=== PATIENT | female | born 1965 | race Caucasian/White ===

== ENCOUNTER 2019-08-09 16:35 | Observation (INO) ==
[2019-08-09] MEDS ORDERED: MoRPHine SULFATE 4 MG/ML 1 ML CARP\\VIAL IV STA ×2 (17:03→20:28)
[2019-08-09] MEDS ORDERED: GI COCKTAIL ED USE PO ONE (17:03)
[2019-08-09] MEDS ORDERED: ONDANSETRON INJ 2 MG/ML 2 ML VIAL IV STA (17:03)
[2019-08-09] MEDS ORDERED: SODIUM CHLORIDE 0.9% 1000ML 1,000 ML IV ONE (17:03)
--- NOTE | 2019-08-09 17:09 | Emergency Department Note ---
History of Present Illness General Chief Complaint: Abdominal Pain Stated Complaint: SEVERE ABDOMINAL PAIN,NAUSEA,CAN'T EAT Source: patient Mode of arrival: ambulatory Limitations: no limitations History of Present Illness Provider Complaint: abdominal pain Onset (ago): 1 day(s) Pain Consistency: constant Location: epigastric Radiation: LLQ and RLQ Migration to: no migration Severity: severe Maximum Pain Intensity: 9 Current Pain Intensity: 9 Quality: + aching, + sharp and + burning Relieved By: + nothing Exacerbated By: + eating and + vomiting Associated Symptoms: + nausea, + vomiting, + chills and + anorexia; no diarrhea, no fever, no constipation, no dysuria, no hematemesis, no hematochezia, no hematuria, no syncope, no headache, no back pain and no chest pain Treatments prior to arrival: tylenol This 54-year-old female patient presents emergency department today, ambulatory, accompanied by her . The patient is complaining of severe abdominal pain, nausea, and anorexia. The patient states the nausea and vomiting began yesterday morning while at work. She states she went home and went to her parents for dinner where she ate mashed potatoes and ham. Shortly thereafter, s he developed sudden onset of severe epigastric pain. The patient states she was having difficulty sleeping last night. The pain has progressively worsened and she continues to experience nausea and vomiting and inability to tolerate p.o. fluids or foods. Patient states walking makes the pain worse. She has taken Tylenol without relief. She denies any history of similar symptoms. Last bowel movement was this morning. She states this was normal. She denies any recent constipation or diarrhea. She denies any chest pain or dyspnea. Home Medications Home Medications Medication Instructions Recorded Confirmed Type acetaminophen [Tylenol Extra 1,000 mg PO Q6H PRN 08/09/19 08/09/19 History Strength] lisinopril 10 mg PO DAILY 08/09/19 08/09/19 History Allergies Allergy/AdvReac Type Severity Reaction Status Date / Time No Known Allergies Allergy Unverified 08/09/19 18:48 Past Med/Surg History Medical History Hypertension Surgical History H/O tubal ligation Social History Preferred Language: Setswana Feels Safe at Home: Yes Smoking Status: Current every day smoker Review of Systems A total of 10 systems reviewed and were otherwise negative Physical Exam Vital Signs: Vital Signs - 24 hr 08/09/19 16:39 08/09/19 17:35 08/09/19 18:10 Temperature 36.5 C Temperature Source Oral Pulse Rate 108 H Pulse Rate [Finger ] 63 Respiratory Rate 18 20 Respiratory Effort / Characteristics Non-Labored Respiratory Depth Normal Blood Pressure 180/94 H Blood Pressure [Le ft Arm] 168/95 H Blood Pressure Rachna n 122 Blood Pressure Rachna n [Left Arm] 119 Pulse Oximetry 99 99 99 Oxygen Delivery Me thod Room Air Room Air Room Air Sepsis Recent Feve r Within 48 Hours No Sepsis New/Unexpla ined Change in Men ger Status No Sepsis Action Take n by Nursing No Action Required 08/09/19 20:30 Temperature Temperature Source Pulse Rate Pulse Rate [Finger ] 89 Respiratory Rate 20 Respiratory Effort / Characteristics Non-Labored Respiratory Depth Normal Blood Pressure Blood Pressure [Le ft Arm] 178/98 H Blood Pressure Rachna n Blood Pressure Rachna n [Left Arm] 124 Pulse Oximetry 95 Oxygen Delivery Me thod Room Air Sepsis Recent Feve r Within 48 Hours Sepsis New/Unexpla ined Change in Men ger Status Sepsis Action Take n by Nursing Physical Exam: VITALS: Vitals are noted on the nurse's note and reviewed by myself. Vital signs stable. GENERAL: This is a 54-year-old white female, in no acute distress, nondiaphoretic, well-developed well-nourished. SKIN: The skin was without rashes, erythema, edema, or bruising. There is no tenting of the skin. Capillary refill less than 2 seconds. HEAD: Normocephalic atraumatic. EARS: External auditory canals clear, tympanic membranes pearly cabrera without erythema or effusion bilaterally. EYES: Conjunctivae without injection, sclerae without icterus. NOSE: Patent, turbinates without inflammation or discharge. No sinus tenderness. MOUTH: Mucous membranes moist. Tonsils are not enlarged. Pharynx without erythema or exudate. Uvula midline. Airway patent. Tongue does not deviate. NECK: Supple without nuchal rigidity. No lymphadenopathy. HEART: Regular rate and rhythm without murmurs gallops or rubs. LUNGS: Clear to auscultation bilaterally without wheezes, rales or rhonchi. No retractions or accessory muscle use. ABDOMEN: Positive bowel sounds x 4. Normal tympanic percussion. Diffuse tenderness palpation, most severe in the left lower quadrant. Mildly dis tended, otherwise without masses or organomegaly. Dalton sign negative. Positive guarding diffusely. MUSCULOSKELETAL: No muscle atrophy, erythema, or edema noted. Full range of motion without joint tenderness in all extremities. No tenderness to palpation. Normal gait. NEURO: Patient was alert and oriented to person place and time. No focal neurological deficits. Course Course The patient was seen and evaluated as above. IV access obtained, labs drawn. Patient medicated with IV fluids, Zofran, morphine, and GI cocktail. Imaging performed and reviewed by myself and radiologist as above. Labs reviewed by myself. I discussed the findings with the patient at bedside. She was given repeat dose of morphine, Protonix. I discussed the case with my attending. I discussed the case with Dr. Rodas, rechecker on-call. He recommends admission to medicine service, maintaining n.p.o. status, PPI twice daily, and suggested the patient will be scoped tomorrow. I discussed the case with Dr. Welsh. He did agree to see and evaluate the patient for admission. Please see his dictation regarding final disposition and care of this patient. Administered Medications Ioversol (Optiray 320 100ml) 94 ml IV ONCE PRN PRN Reason: Interaction Checking Stop: 08/13/19 18:55 Last Admin: 08/09/19 18:57 Dose: 94 ml Documented by: [id number] Discontinued Medications Al Hydrox/Mg Hydrox/Simethicone () 1 dose PO ONE ONE Stop: 08/09/19 17:04 Last Admin: 08/09/19 17:46 Dose: 1 dose Documented by: [id number] Sodium Chloride (Nss 1000ml) 1,000 mls @ 999 mls/hr IV .Q1H1M ONE Stop: 08/09/19 18:03 Last Infusion: 08/09/19 18:34 Dose: 0 mls/hr Documented by: [id number] Admin: 08/09/19 17:48 Dose: 999 mls/hr Documented by: [id number] Morphine Sulfate (Morphine Sulfate) 4 mg IV NOW STA Stop: 08/09/19 17:04 Last Admin: 08/09/19 17:47 Dose: 4 mg Documented by: [id number] Morphine Sulfate (Morphine Sulfate) 4 mg IV NOW STA Stop: 08/09/19 20:29 Last Admin: 08/09/19 20:41 Dose: 4 mg Documented by: [id number] Ondansetron HCl (Zofran) 4 mg IV NOW STA Stop: 08/09/19 17:04 Last Admin: 08/09/19 17:48 Dose: 4 mg Documented by: [id number] Pantoprazole Sodium (Protonix) 40 mg PO NOW STA Stop: 08/09/19 20:29 Last Admin: 08/09/19 20:41 Dose: 40 mg Documented by: [id number] Medical Decision Making Differential Diagnosis + peptic ulcer disease, + biliary pathology, + UTI, + obstruction, + mesenteric ischemia, + aortic pathology, + infections, + inflammatory bowel disease, + renal colic, + ectopic (female), + ovarian torsion (female), + tubo- ovarian abscesses (female), + pelvic inflammatory disease (female), + abdominal pain, + appendicitis, + calculus of kidney, + constipation, + diverticulitis, + endometriosis, + gastroenteritis, + pancreatitis and + small bowel obstruction Medical Records Attestation: I reviewed the patient's medical records. Home Medications Current Medication List: was personally reviewed by me Laboratory Data Attestation: I reviewed the patient's lab results. No leukocytosis, anemia, thrombocytopenia. Renal, hepatic function, and electrolytes without significant abnormality. Troponin negative. Lipase 126. Urinalysis negative for blood or infection. Mild ketones. Result diagrams: 08/09/19 17:35 08/09/19 17:35 Lab Results 08/09/19 08/09/19 08/09/19 Range/Units 17:35 17:35 18:00 WBC 7.39 (4.8-10.8) K/uL RBC 3.98 L (4.2-5.4) M/uL Hgb 13.2 (12.0-16.0) g/dL Hct 38.3 (37-47) % MCV 96.2 (80-100) fL MCH 33.2 (25-34) pg MCHC 34.5 (32-36) g/dL RDW Std Deviation 46.2 (36.4-46.3) fL RDW Coeff of Kiko 13.2 (11.5-14.5) % Plt Count 278 (130-400) K/uL MPV 9.1 (7.4-10.4) fL Immature Gran % (Auto) 0.1 % Neut % (Auto) 81.8 % Lymph % (Auto) 13.3 % [place] % (Auto) 4.2 % Eos % (Auto) 0.5 % Baso % (Auto) 0.1 % Immature Gran # (Auto) 0.01 (0.00-0.02) K/uL Neut # (Auto) 6.04 (1.4-6.5) K/uL Lymph # (Auto) 0.98 L (1.2-3.4) K/uL [place] # (Auto) 0.31 (0.11-0.59) K/uL Eos # (Auto) 0.04 (0-0.5) K/uL Baso # (Auto) 0.01 (0-0.2) K/uL Sodium 136 (136-145) mmol/L Potassium 3.6 (3.5-5.1) mmol/L Chloride 105 (98-107) mmol/L Carbon Dioxide 24 (21-32) mmol/L Anion Gap 7.0 (3-11) BUN 16 (7-18) mg/dl Creatinine 0.69 (0.6-1.2) mg/dl Est Cr Clr Drug Dosing 81.9 ml/min Est GFR ( Amer) 112.8 Est GFR (Non-Af Amer) 97.3 BUN/Creatinine Ratio 23.2 H (10-20) Glucose 102 H (70-99) mg/dl Calcium 9.0 (8.5-10.1) mg/dl Total Bilirubin 0.5 (0.2-1) mg/dl AST 10 L (15-37) U/L ALT 13 (12-78) U/L Alkaline Phosphatase 55 (45-117) U/L Troponin I < 0.015 (0-0.045) ng/ml Total Protein 7.8 (6.4-8.2) gm/dl Albumin 3.7 (3.4-5.0) gm/dl Globulin 4.1 H (2.5-4.0) gm/dl Albumin/Globulin Ratio 0.9 (0.9-2) Lipase 126 (73-393) U/L Urine Color Yellow Urine Appearance Clear (Clear) Urine pH 6.0 (4.5-7.5) Ur Specific [place] 1.030 (1.000-1.030) Urine Protein 2+ H (Negative) Urine Glucose (UA) Negative (Negative) Urine Ketones 2+ H (Negative) Urine Blood Negative (Negative) Urine Nitrite Negative (Negative) Urine Bilirubin Negative (Negative) Urine Urobilinogen Negative (Negative) Ur Leukocyte Esterase Negative (Negative) Urine WBC (Auto) 1-5 (0-5) /hpf Urine RBC (Auto) 0-4 (0-4) /hpf U Hyaline Cast (Auto) 1-5 (0-5) /lpf U Epithel Cells (Auto) 10-20 H (0-5) /lpf Urine Bacteria (Auto) Negative (Negative) Imaging Data Radiologist's Impression: ABDOMEN AND PELVIS CT WITH IV CONTRAST CT DOSE: 420.40 mGy.cm HISTORY: abdominal pain - diffuse, nausea, vomiting TECHNIQUE: Multiaxial CT images of the abdomen and pelvis were performed following the use of intravenous contrast. A dose lowering technique was utilized adhering to the principles of ALARA. COMPARISON STUDY: Abdomen and pelvis CT 03/16/2019. FINDINGS: The lung bases are clear. No pneumoperitoneum. No pneumatosis. The liver, spleen, adrenal glands, and pancreas are unremarkable. No retroperitoneal lymphadenopathy. Moderate calcified plaque within the normal caliber abdominal aorta. Multifocal scarring within the bilateral kidneys. No hydronephrosis. The gallbladder is significantly distended. No gallbladder wall thickening or gallstones identified. Normal caliber common bile duct. There is moderate thickening of the gastric antrum. Possible ulceration along the superior border of the gastric antrum best seen on image 154. This measures 2.6 cm. No perforation or abscess identified this time. There is mild inflammatory change surrounding the gastric antrum. There is a 1.3 cm lipoma within the second portion of the duodenum. The bladder is not well-distended but appears unremarkable. A few small calcified uterine fibroids are noted. No pelvic free fluid. No evidence for bowel obstruction. IMPRESSION: 1. Moderate thickening of the gastric antrum suggestive of a gastritis. There is also possible 2.6 cm ulceration along the superior border the gastric antrum. No evidence for perforation. Follow-up endoscopy recommended for further evaluation. 2. Significantly distended gallbladder. No gallbladder wall thickening or gallstones identified. 3. No evidence for bowel obstruction. ACT 112: Negative or not required by law. Electronically signed by: Sam Muller M.D. 08/09/2019 8:11 PM ECG Data Attestation: I personally reviewed and interpreted this ECG as follows: Indication: abdominal pain Rate (beats per minute): 80 Rhythm: sinus with SA Findings: no ST depression, no T-wave inversion, no acute ischemic change and no ectopy Comparison ECG Date: no prior available Blood Pressure Blood Pressure Findings: Elevated blood pressure Blood Pressure Disposition: elevated BP felt to be situational MDM Narrative This 54-year-old female patient presents the emergency department today due to abdominal pain, nausea, vomiting, and anorexia. The patient has been afebrile. Pain began last evening. Work-up here in the ED does not show any leukocytosis. Urinalysis negative for evidence of infection. Patient was diffusely tender, but most particularly over the left lower quadrant and epigastrium. CT imaging consistent with gastritis as well as a 2.6 cm ulceration along the superior border of the gastric antrum. No evidence of perforation. I did discuss the case with the rechecker on-call who recommends admission to medicine service and will perform EGD tomorrow. [facility] symptoms. Please see hospitalist and gastroenterology dictation regarding ongoing management care of this patient. The chart was completed utilizing i[employer] Speech voice recognition software. Grammatical errors, random word insertions, pronoun errors, and incomplete sentences are an occasional consequence of this system due to software limitations, ambient noise, and hardware issues. Any formal questions or concerns about the content, text, or information contained within the body of this dictation should be directly addressed to the provider for clarification. Impression & Plan Gastric ulcer, Abdominal pain, Gastritis, Nausea & vomiting Discharge Plan Visit Data Chief Complaint: Abdominal Pain Stated Complaint: SEVERE ABDOMINAL PAIN,NAUSEA,CAN'T EAT ED Provider: Gabriele Anaya ED Midlevel Provider: Mae Jerry Discharge Problem: Gastric ulcer, Abdominal pain, Gastritis, Nausea & vomiting Patient Disposition: Home - Self-Care Condition: Good Forms Stand Alone Forms: My [facility], Call Back Authorization, Important Visit Information Prescriptions Prescriptions: No Action acetaminophen [Tylenol Extra Strength] 500 mg Tablet 1,000 mg PO Q6H PRN (Reason: Pain) RF: 0 lisinopril 10 mg tablet 10 mg PO DAILY RF: 0 Referrals Referrals: Alhaji Laguna DO [Primary Care Provider] -
[2019-08-09 17:59] LABS: Basophils # (auto) 0.01 K/uL (0-0.2); Basophils % (auto) 0.1 %; Eosinophils # (auto) 0.04 K/uL (0-0.5); Eosinophils % (auto) 0.5 %; Hematocrit (blood only) 38.3 % (37-47); Hemoglobin 13.2 g/dL (12.0-16.0); Immature Granulocytes # (auto) 0.01 K/uL (0.00-0.02); Immature Granulocytes % (auto) 0.1 %; Lymphocytes # (auto) 0.98 K/uL (1.2-3.4); Lymphocytes % (auto) 13.3 %; Mean Corpuscular Hemoglobin 33.2 pg (25-34); Mean Corpuscular Hgb Conc 34.5 g/dL (32-36); Mean Corpuscular Volume 96.2 fL (80-100); Mean Platelet Volume 9.1 fL (7.4-10.4); Monocytes # (auto) 0.31 K/uL (0.11-0.59); Monocytes % (auto) 4.2 %; Neutrophils # (auto) 6.04 K/uL (1.4-6.5); Neutrophils % (auto) 81.8 %; Platelet Count 278 K/uL (130-400); RDW Coefficient of Variation 13.2 % (11.5-14.5); RDW Standard Deviation 46.2 fL (36.4-46.3); Red Blood Count 3.98 M/uL (4.2-5.4); White Blood Count 7.39 K/uL (4.8-10.8)
[2019-08-09 18:17] LABS: Alanine Aminotransferase 13 U/L (12-78); Albumin Level 3.7 gm/dl (3.4-5.0); Aspartate Aminotransferase 10 U/L (15-37); BUN Creatinine Ratio 23.2 (10-20); Blood Urea Nitrogen 16 mg/dl (7-18); Carbon Dioxide 24 mmol/L (21-32); Chloride 105 mmol/L (98-107); Creatinine Clr Calc Pharmacy 81.9 ml/min; Est GFR (African American) 112.8; Est GFR (Non-African American) 97.3; Glucose 102 mg/dl (70-99); Lipase 126 U/L (73-393); Potassium 3.6 mmol/L (3.5-5.1); Sodium 136 mmol/L (136-145)
[2019-08-09 18:22] LABS: Albumin Globulin Ratio 0.9 (0.9-2); Alkaline Phosphatase 55 U/L (45-117); Bilirubin,Total 0.5 mg/dl (0.2-1); Globulin 4.1 gm/dl (2.5-4.0); Total Protein 7.8 gm/dl (6.4-8.2); Troponin I < 0.015 ng/ml (0-0.045)
[2019-08-09 18:35] LABS: Appearance Urine Clear (Clear); Bacteria Urine Automated Negative (Negative); Bilirubin Urine Negative (Negative); Blood Urine Negative (Negative); Color Urine Yellow; Glucose Urine UA Negative (Negative); Ketones Urine 2+ (Negative); Leukocyte Esterase Urine Negative (Negative); Nitrite Urine Negative (Negative); Protein Urine 2+ (Negative); RBC Urine Automated 0-4 /hpf (0-4); Urobilinogen Urine Negative (Negative)
[2019-08-09] MEDS ORDERED: IOVERSOL 100ml IV PRN (18:56)
--- NOTE | 2019-08-09 20:12 | CT Scan Report ---
ABDOMEN AND PELVIS CT WITH IV CONTRAST CT DOSE: 420.40 mGy.cm HISTORY: abdominal pain - diffuse, nausea, vomiting TECHNIQUE: Multiaxial CT images of the abdomen and pelvis were performed following the use of intrave nous contrast. A dose lowering technique was utilized adhering to the principles of ALARA. COMPARISON STUDY: Abdomen and pelvis CT 03/16/2019. FINDINGS: The lung bases are clear. No pneumoperitoneum. No pneumatosis. The liver, spleen, adrenal g lands, and pancreas are unremarkable. No retroperitoneal lymphadenopathy. Moderate calcified plaque w ithin the normal caliber abdominal aorta. Multifocal scarring within the bilateral kidneys. No hydron ephrosis. The gallbladder is significantly distended. No gallbladder wall thickening or gallstones id entified. Normal caliber common bile duct. There is moderate thickening of the gastric antrum. Possib le ulceration along the superior border of the gastric antrum best seen on image 154. This measures 2 .6 cm. No perforation or abscess identified this time. There is mild inflammatory change surrounding the gastric antrum. There is a 1.3 cm lipoma within the second portion of the duodenum. The bladder i s not well-distended but appears unremarkable. A few small calcified uterine fibroids are noted. No p elvic free fluid. No evidence for bowel obstruction. IMPRESSION: 1. Moderate thickening of the gastric antrum suggestive of a gastritis. There is also possible 2.6 cm ulceration along the superior border the gastric antrum. No evidence for perforation. Follow-up endo scopy recommended for further evaluation. 2. Significantly distended gallbladder. No gallbladder wall thickening or gallstones identified. 3. No evidence for bowel obstruction. ACT 112: Negative or not required by law. Electronically signed by: Sam Muller M.D. 08/09/2019 8:11 PM
[2019-08-09] MEDS ORDERED: PANTOprazole 40 MG TAB PO STA (20:28)
--- NOTE | 2019-08-09 22:21 | History & Physical Report ---
Date of Service August 09, 2019 Assessment & Plan (1) Abdominal pain: Gastritis and/or with Gastric ulcer seen on CT Abd No clear etiology as doesn't use NSAIDs but risk factor is that she smokes putting her at risk for Cancers GI consulted and aware with probably plan for EGD tomorrow Will make NPO Morphine 2mg IV PRN for pain Zofran 4mg IV PRN for nausea Aspiration precautions NSS @ 110mls/hr IVFs Currently hemodynamically stable, no signs of active bleed, Hgb in ED WNL Received Protonix 40mg PO in ED; will start on Pepcid 20mg IV BID, no current indication for Protonix drip. Code: Full Code DVT ppx: SCDs, chemical contraindicated in person with possible gastric ulcer FENGI: Strict NPO, IVF and Pepcid as noted above Dispo: Observation, med surg/tele (2) Tobacco abuse: Declines need for Nicotine patch Smoking cessation provided (3) Hypertension: Currently hemodynamically stable Hold home Lisinopril 10mg since NPO (4) H/O tubal ligation: Only noted abdominal surgery per patient History of Present Illness Chief Complaint: Abdominal Pain/Gastric Ulcer Primary Care Provider: DO Hannah Moses Cody is a 54 y/o female with past medical hx of HTN, pyelonephritis, and current smoker. She notes that she had onset yesterday morning of Nausea and Vomiting x2. Emesis was non-bloody/blood tinged. Later that day, she had onset of left sided abdominal pain after eating some ham and mashed potatoes that was characterized as a "knot." She only had a couple bites and then was adverse to eating again as this seemed to worsen pain. In the AM today, she had a couple of bites of toast, but has only been able to tolerate some sips of water. Last BM was yesterday morning and was normal without black/bloody stools. No prior black/bloody stools, GI bleeds. She does not use NSAIDs outside of occasional Tylenol, but nothing routine. No prior colonoscopies, as she was waiting to get health insurance as she is currently uninsured. Allergies Allergy/AdvReac Type Severity Reaction Status Date / Time No Known Allergies Allergy Unverified 08/09/19 18:48 Home Medications Home Medications Medication Instructions Recorded Confirmed Type acetaminophen [Tylenol Extra 1,000 mg PO Q6H PRN 08/09/19 08/09/19 History Strength] lisinopril 10 mg PO DAILY 08/09/19 08/09/19 History Past Med/Surg History Medical History Hypertension Surgical History H/O tubal ligation Family History Father Hypertension Heart disease Sister Nephrolithiasis Social History Preferred Language: Cymro Communication Ability: Effective Show Worker Required: No Beliefs That Will Affect Care: None Current Living Situation: Spouse Other Information That Helps Us Care for You: No Feels Safe at Home: Yes Safety Concerns: Feels Safe At This Time Smoking Status: Current every day smoker Tobacco Type: cigarettes ; Cigarettes Per Day: 2-10 ; Do You Dip or Chew Tobacco: No ; Tobacco Cessation Education Requested by Patient: No Hx Alcohol Use: No Hx Substance Use: No Review of Systems Review of Systems: All systems reviewed & are unremarkable except as noted in HPI & below Constitutional: no fever and no chills Eyes: no diplopia and no worsening vision Ear, Nose, Mouth, Throat: no nasal congestion and no sore throat Respiratory: no cough and no dyspnea Cardiovascular: no chest pain and no palpitations Gastrointestinal: + abdominal pain, + nausea and + vomiting; no coffee ground emesis and no blood in stools Genitourinary: no dysuria and no difficulty urinating Integumentary: no rash Neurologic: no numbness and no confusion Physical Exam Constitutional: WD/WN, vitals as above Eyes: PERRL, conjunctivae normal, anicteric sclerae ENMT: external ear and nose normal, oropharynx normal Neck: normal visual inspection and trachea midline Respiratory: normal respiratory effort, lungs clear to auscultation Cardiovascular: RRR, no murmur, no edema Gastrointestinal (Abdomen): Inspection/Auscultation: normal bowel sounds and + abdominal surgical scar (lower abdomen midline old well healed) Percussion/Palpation: + abdomen tender (left abdomen without rebound) and abdomen soft; no guarding and abdomen not rigid Musculoskeletal: Head/Neck/Chest: normocephalic and head atraumatic Skin: no rashes, warm and dry Neurologic: moves all extremities and awake Psychiatric: Orientation: alert and oriented x 3 tearful Results & Data Vital Signs (Past 12 Hours) Vital Signs Temp Pulse Pulse Resp BP BP Pulse Ox 08/09/19 20:30 89 20 178/98 H 95 08/09/19 18:10 63 20 168/95 H 99 08/09/19 17:35 99 08/09/19 16:39 36.5 C 108 H 18 180/94 H 99 Laboratory Results Laboratory Results - last 24 hr 08/09/19 08/09/19 08/09/19 17:35 17:35 18:00 WBC 7.39 RBC 3.98 L Hgb 13.2 Hct 38.3 MCV 96.2 MCH 33.2 MCHC 34.5 RDW Std Deviation 46.2 RDW Coeff of Kiko 13.2 Plt Count 278 MPV 9.1 Immature Gran % (Auto) 0.1 Neut % (Auto) 81.8 Lymph % (Auto) 13.3 Harris % (Auto) 4.2 Eos % (Auto) 0.5 Baso % (Auto) 0.1 Immature Gran # (Auto) 0.01 Neut # (Auto) 6.04 Lymph # (Auto) 0.98 L Harris # (Auto) 0.31 Eos # (Auto) 0.04 Baso # (Auto) 0.01 Sodium 136 Potassium 3.6 Chloride 105 Carbon Dioxide 24 Anion Gap 7.0 BUN 16 Creatinine 0.69 Est Cr Clr Drug Dosing 81.9 Est GFR ( Amer) 112.8 Est GFR (Non-Af Amer) 97.3 BUN/Creatinine Ratio 23.2 H Glucose 102 H Calcium 9.0 Total Bilirubin 0.5 AST 10 L ALT 13 Alkaline Phosphatase 55 Troponin I < 0.015 Total Protein 7.8 Albumin 3.7 Globulin 4.1 H Albumin/Globulin Ratio 0.9 Lipase 126 Urine Color Yellow Urine Appearance Clear Urine pH 6.0 Ur Specific [place] 1.030 Urine Protein 2+ H Urine Glucose (UA) Negative Urine Ketones 2+ H Urine Blood Negative Urine Nitrite Negative Urine Bilirubin Negative Urine Urobilinogen Negative Ur Leukocyte Esterase Negative Urine WBC (Auto) 1-5 Urine RBC (Auto) 0-4 U Hyaline Cast (Auto) 1-5 U Epithel Cells (Auto) 10-20 H Urine Bacteria (Auto) Negative Diagnostic Findings CT Abd 1.Moderate thickening of the gastric antrum suggestive of a gastritis. There is also possible 2.6 cm ulceration along the superior border the gastric antrum. No evidence for perforation. Follow-up endoscopy recommended for further evaluation. 2. Significantly distended gallbladder. No gallbladder wall thickening or gallstones identified. 3. No evidence for bowel obstruction. Medications Administered Ioversol (Optiray 320 100ml) 94 ml IV ONCE PRN PRN Reason: Interaction Checking Stop: 08/13/19 18:55 Last Admin: 08/09/19 18:57 Dose: 94 ml Documented by: [id number] Code Status & VTE Plan Code Status Full Code VTE Prophylaxis Plan VTE Prophylaxis will be ordered: Yes Reason for no VTE drug order: Contraindicated Supervising Physician Co-Signing Physician Notes Attending addendum: I have physically seen this patient, have supervised the medical residents activ ities, and agree with the H&P unless as otherwise noted. Assessment and Plan: Severe gastritis/gastric ulcer 2.6 cm in diameter, as noted on CT- NPO Famotidine 20 mg IV every 12 hours. NSS 100 mils per hour. Zofran 4 mg IV every 6 hours as needed Morphine sulfate 2 mg IV every 4 hours as needed severe pain. Tobacco cessation encouraged. Will defer H. pylori testing, as patient will likely be getting an EGD tomorrow. Consult gastroenterology. Remainder of orders and notations as noted. Resident Activity Tracking Resident Involvement: Resident Care Provided Care Provided: Adult Hospital Medicine
[2019-08-10] MEDS: FAMOTIDINE 20 MG in SYRINGE 3 ML IV SCH ×2 (00:06→08:19)
[2019-08-10] MEDS: SODIUM CHLORIDE 0.9% 1000ML 1,000 ML IV SCH ×3 (00:07→17:38)
[2019-08-10] MEDS: ONDANSETRON INJ 2 MG/ML 2 ML VIAL IV PRN ×2 (00:47→08:19)
[2019-08-10] MEDS: MoRPHine SULFATE 2 MG/ML CARP IV PRN ×3 (01:06→19:35)
[2019-08-10 07:28] LABS: Eosinophils # (auto) 0.02 K/uL (0-0.5); Eosinophils % (auto) 0.3 %; Hematocrit (blood only) 39.4 % (37-47); Hemoglobin 12.9 g/dL (12.0-16.0); Lymphocytes # (auto) 1.18 K/uL (1.2-3.4); Lymphocytes % (auto) 17.6 %; Mean Corpuscular Hemoglobin 32.4 pg (25-34); Mean Corpuscular Hgb Conc 32.7 g/dL (32-36); Mean Platelet Volume 9.2 fL (7.4-10.4); Neutrophils % (auto) 76.1 %; Platelet Count 241 K/uL (130-400); RDW Coefficient of Variation 13.1 % (11.5-14.5); RDW Standard Deviation 47.6 fL (36.4-46.3); Red Blood Count 3.98 M/uL (4.2-5.4)
[2019-08-10 08:01] LABS: BUN Creatinine Ratio 16.6 (10-20); Calcium 9.1 mg/dl (8.5-10.1); Creatinine Clr Calc Pharmacy 89.7 ml/min; Est GFR (African American) 116.2; Est GFR (Non-African American) 100.3; Potassium 4.1 mmol/L (3.5-5.1)
--- NOTE | 2019-08-10 10:09 | Gastrointestinal Consultation ---
Date of Consultation August 10, 2019 Assessment & Plan (1) Abdominal pain: (2) Nausea and vomiting: (3) Abnormal CT scan: ddx includes PUD vs. severe gastritis vs. less likely malignancy. Recs: 1. keep NPO 2. EGD today to evaluate 3. c/w pepcid BID for now Thank you for allowing me to participate in the care of this patient. History of Present Illness Attending Physician: Raf Landin MD 54 y/o female with past medical hx of HTN, pyelonephritis here for nausea/vomiting and abdominal pains. She notes some mild hematemesis as well and upper abdominal pains 7/10, for the last 2 days, worse with eating. Denies hematochezia, melena, diarrhea, constipation, NSAID abuse, prior history of this kind of pain before. No family hx gastric nor esophageal cancer, no prior EGD nor colonoscopy. CT A/P done this admission showed gastric thckening and possible 2.5 cm ulcer, endoscopic evaluation was recommended. She is a current smoker. Labs reviewed, mostly unremarkable. No outside records to review. Allergies Allergy/AdvReac Type Severity Reaction Status Date / Time No Known Allergies Allergy Unverified 08/09/19 18:48 Home Medications Home Medications Medication Instructions Recorded Confirmed Type acetaminophen [Tylenol Extra 1,000 mg PO Q6H PRN 08/09/19 08/09/19 History Strength] lisinopril 10 mg PO DAILY 08/09/19 08/09/19 History Patient History Medical History Hypertension Surgical History H/O tubal ligation Family History Father Hypertension Heart disease Sister Nephrolithiasis Social History Preferred Language: Belarusian Communication Ability: Effective Auto Hauler Required: No Beliefs That Will Affect Care: None Current Living Situation: Spouse Other Information That Helps Us Care for You: No Feels Safe at Home: Yes Safety Concerns: Feels Safe At This Time Smoking Status: Current every day smoker Tobacco Type: cigarettes ; Cigarettes Per Day: 2-10 ; Do You Dip or Chew Tobacco: No ; Tobacco Cessation Education Requested by Patient: No Hx Alcohol Use: No Hx Substance Use: No Review of Systems Constitutional: no fever, no chills and no weight loss Eyes: as per Subjective / HPI Ear, Nose, Mouth, Throat: as per Subjective / HPI Respiratory: no dyspnea and no dyspnea on exertion Cardiovascular: no chest pain and no palpitations Gastrointestinal: as per Subjective / HPI Musculoskeletal: no joint pain and no swelling Integumentary: no rash and no lesions Neurologic: no numbness and no paresthesia Psychiatric: no depression and no anxiety Endocrine: no fatigue Hematologic / Lymphatic: no easy bleeding and no easy bruising Physical Exam Constitutional: WD/WN, vitals as above Eyes: EOM intact bilaterally Neck: normal visual inspection Respiratory: normal respiratory effort, lungs clear to auscultation Cardiovascular: RRR, no murmur, no edema Gastrointestinal (Abdomen): Inspection/Auscultation: abdomen normal to inspection; abdomen not distended Percussion/Palpation: abdomen soft; abdomen nontender and no hepatosplenomegaly Musculoskeletal: Extremities: no cyanosis Gait: normal gait Skin: no rashes, warm and dry Neurologic: moves all extremities Psychiatric: A+Ox3, euthymic affect Results & Data Vital Signs (Past 12 Hours) Vital Signs Temp Pulse Pulse Resp BP BP Pulse Ox 08/10/19 08:02 36.5 C 74 16 161/73 H 97 08/10/19 07:35 81 08/10/19 04:44 36.7 C 89 20 162/86 H 96 08/10/19 02:56 78 08/10/19 00:35 36.7 C 79 16 116/79 95 08/09/19 22:40 89 20 171/90 H 96 PG Care Time/CCT Total # of Minutes Spent Total Time Spent with Patient: Total time spent is greater than 50% in coordination of care (as documented) at patient's floor/unit and/or counseling patient: Coding Level of Care Code 08649 Inpt Consult Level 4 Diagnoses Abdominal pain R10.9 Nausea and vomiting R11.[address] scan R93.89
--- NOTE | 2019-08-10 11:48 | Electrocardiogram Report ---
Test Reason : Blood Pressure : / mmHG Vent. Rate : 080 BPM Atrial Rate : 080 BPM P-R Int : 116 ms QRS Dur : 112 ms QT Int : 390 ms P-R-T Axes : 105 119 044 degrees QTc Int : 449 ms Normal sinus rhythm with sinus arrhythmia Incomplete right bundle branch block Left posterior fascicular block Abnormal ECG No previous ECGs available Confirmed by Gabriele Beard ([id number]) on 08/10/2019 11:47:49 AM Referred By: REFERRED SELF Confirmed By:Gabriele Beard
--- NOTE | 2019-08-10 13:11 | Hospitalist Progress Note ---
Date of Service August 10, 2019 Assessment & Plan (1) Abdominal pain: Possible gastritis and/or gastric ulcer seen on CT a/p on 08/09. - GI consulted - Plan for EGD today. - NPO at present - Continue H2 celio (2) Hypertension: BP is 160/75 today. - Holding ACEi while NPO - Will restart as able (3) DVT prophylaxis: SCDs - Low DVT risk per admission calculator & also with concern for ulcer Subjective Still with stable abdominal pain, though she is hungry. No present nausea. Reports no fevers/chills, chest pain, shortness of breath, or vomiting. Physical Exam Constitutional: WD/WN, vitals as above Eyes: EOM intact bilaterally; no conjunctival abnormality ENMT: external ear and nose normal, oropharynx normal Neck: trachea midline, no thyromegaly normal visual inspection Respiratory: normal respiratory effort, lungs clear to auscultation no respiratory distress Cardiovascular: RRR, no murmur, no edema Gastrointestinal (Abdomen): Inspection/Auscultation: abdomen normal to inspection; abdomen not distended Percussion/Palpation: + abdomen tender (Epigastric) and abdomen soft; no guarding and abdomen not rigid Musculoskeletal: no cyanosis or clubbing, extremities motor strength 5/5 Skin: no rashes, warm and dry Neurologic: moves all extremities and awake Psychiatric: Orientation: alert, oriented to person and cooperative Results & Data ([facility]) Vital Signs (Past 12 Hours) Vital Signs Temp Pulse Pulse Resp BP BP Pulse Ox 08/10/19 11:47 159/75 H 08/10/19 11:26 36.7 C 75 16 182/83 H 96 08/10/19 08:02 36.5 C 74 16 161/73 H 97 08/10/19 07:35 81 08/10/19 04:44 36.7 C 89 20 162/86 H 96 08/10/19 02:56 78 PG Care Time/CCT Total # of Minutes Spent Total Time Spent with Patient: Total time spent is greater than 50% in coordination of care (as documented) at patient's floor/unit and/or counseling patient: Coding Level of Care Code 78643 Subseq Hosp Care Lvl 3 Diagnoses Abdominal pain R10.9 Hypertension I10 DVT prophylaxis Z29.9
[2019-08-10] MEDS ORDERED: ePHEDrine sulfate 50 MG/ML AMP IV PRN ×2 (15:36→15:55)
[2019-08-10] MEDS ORDERED: ATROPINE SULFATE 0.1 MG/ML 10ML SYR IV PRN ×2 (15:36→15:55)
--- NOTE | 2019-08-10 15:36 | Anesthesiology Consultation ---
Date of Service August 10, 2019 Assessment & Plan (1) Encounter for pre-operative examination: Chart Review Chart Review: Acceptable Risk for Surgery and Patient NOT seen in Pre Admission Testing Consults Requested none History Surgery Operation Date: 08/10/19 16:15 Proposed Procedures p Esophagogastroduodenoscopy Dr. Subha Mascorro MD Height/Weight Height: 5 ft 5 in Weight: 60.9 kg Allergies Allergy/AdvReac Type Severity Reaction Status Date / Time No Known Allergies Allergy Unverified 08/09/19 18:48 Medications Home Medications Medication Instructions Recorded Confirmed Last Taken acetaminophen [Tylenol Extra 1,000 mg PO Q6H PRN 08/09/19 08/09/19 Unknown Strength] lisinopril 10 mg PO DAILY 08/09/19 08/09/19 Unknown Active Medications Generic Name Dose Route Start Last Admin Trade Name Freq PRN Reason Stop Dose Admin Sodium Chloride 1,000 mls @ 75 mls/hr 08/09/19 23:43 08/10/19 08:20 Nss 1000ml IV 09/08/19 23:42 110 mls/hr .[id number] ELIZ Administration Famotidine 20 mg/ Syringe 5 mls @ 2.5 mls/min 08/09/19 23:43 08/10/19 08:19 IV 09/08/19 23:42 2.5 mls/min BID ELIZ Administration Morphine Sulfate 2 mg 08/09/19 23:43 08/10/19 11:11 Morphine Sulfate IV 08/23/19 23:42 2 mg Q4H PRN Administration Pain Ondansetron HCl 4 mg 08/09/19 23:43 08/10/19 08:19 Zofran IV 09/08/19 23:42 4 mg Q6H PRN Administration Nausea NPO Date Last Intake of Fluids: 08/09/19 Time Last Intake of Fluids: 12:00 Date Last Intake of Solids: 08/09/19 Time Last Intake of Solids: 12:00 Past Medical History Medical History Hypertension Past Family History Family History Father Hypertension Heart disease Sister Nephrolithiasis Past Surgical History Surgical History H/O tubal ligation Social History Smoking Status: Current every day smoker tobacco type: cigarettes Smoking cigarettes per day: 2-10 Do You Dip or Chew Tobacco: No Hx Alcohol Use: No Hx Substance Use: No substance use type: does not use Physical Exam Vital Signs Last Vital Signs Temp 36.6 C 08/10/19 15:00 Pulse 79 08/10/19 15:00 Resp 18 08/10/19 15:00 BP 172/112 H 08/10/19 15:00 Pulse Ox 98 08/10/19 15:00 Testing Laboratory Results 08/10/19 07:10 08/10/19 07:10 Urine Color Yellow 08/09/19 18:00 Urine Appearance Clear (Clear) 08/09/19 18:00 Urine pH 6.0 (4.5-7.5) 08/09/19 18:00 Ur Specific [place] 1.030 (1.000-1.030) 08/09/19 18:00 Urine Protein 2+ (Negative) H 08/09/19 18:00 Urine Glucose (UA) Negative (Negative) 08/09/19 18:00 Urine Ketones 2+ (Negative) H 08/09/19 18:00 Urine Nitrite Negative (Negative) 08/09/19 18:00 Ur Leukocyte Esterase Negative (Negative) 08/09/19 18:00 Urine WBC (Auto) 1-5 /hpf (0-5) 08/09/19 18:00 Urine RBC (Auto) 0-4 /hpf (0-4) 08/09/19 18:00 U Hyaline Cast (Auto) 1-5 /lpf (0-5) 08/09/19 18:00 U Epithel Cells (Auto) 10-20 /lpf (0-5) H 08/09/19 18:00 Urine Bacteria (Auto) Negative (Negative) 08/09/19 18:00
[2019-08-10] MEDS ORDERED: LIDOCAINE HCL 2% 2 ML VIAL/AMP(20MG/ML) INFIL ONE (16:17)
[2019-08-10] MEDS ORDERED: PROPOFOL IV EMULSION 10 MG/ML 20 ML VIAL IV ONE (16:17)
--- NOTE | 2019-08-10 16:35 | Anesthesiology Progress Note ---
Date of Service August 10, 2019 Anesthesia Post Procedure Vital Signs Vital Signs: Temp Pulse Pulse Resp BP BP BP 08/10/19 15:00 36.6 C 79 18 172/112 H 08/10/19 11:47 159/75 H 08/10/19 11:26 36.7 C 75 16 182/83 H 08/10/19 08:02 36.5 C 74 16 161/73 H 08/10/19 07:35 81 08/10/19 04:44 36.7 C 89 20 162/86 H 08/10/19 02:56 78 08/10/19 00:35 36.7 C 79 16 116/79 08/09/19 22:40 89 20 171/90 H 08/09/19 20:30 89 20 178/98 H 08/09/19 18:10 63 20 168/95 H 08/09/19 17:35 08/09/19 16:39 36.5 C 108 H 18 180/94 H Pulse Ox 08/10/19 15:00 98 08/10/19 11:47 08/10/19 11:26 96 08/10/19 08:02 97 08/10/19 07:35 08/10/19 04:44 96 08/10/19 02:56 08/10/19 00:35 95 08/09/19 22:40 96 08/09/19 20:30 95 08/09/19 18:10 99 08/09/19 17:35 99 08/09/19 16:39 99 Pain Intensity Abdomen: Pain Intensity: 5 Transfer of Care Handoff Completed per policy Notes Mental Status: alert / awake / arousable Patient Amnestic to Procedure: Yes Nausea / Vomiting: adequately controlled Pain: adequately controlled Airway Patency, RR, SpO2: stable & adequate BP & HR: stable & adequate Hydration State: stable & adequate Anesthetic Complications: no major complications apparent and Pt Satisfied with anesthetic care
--- NOTE | 2019-08-10 16:40 | Communication Note ---
Date of Service: August 10, 2019 GI brief procedure note EGD findings: there was a large, cratered necrotic ulcer at the pylorus that was approximately 3 cm deep almost to the point of perforation, ulcer edges biopsied for histology. No bleeding noted. Recs: 1. PPI protonix 40 mg BID 2. general surgery evaluation 3.NPO see procedure note for full details Ariel Mascorro MD Gastroenterology
--- NOTE | 2019-08-10 16:51 | GI REPORT ---
Patient Name: Hannah Ross Procedure Date: 08/10/2019 4:22 PM Date of : 1965 Admit Type: Inpatient Age: 54 Gender: Female Attending MD: Ariel Mascorro MD Procedure: Upper GI endoscopy Providers: Ariel Mascorro MD Referring MD: Raf Landin Md Indications: Epigastric abdominal pain, Abnormal CT of the GI tract Medicines: Monitored Anesthesia Care Complications: No immediate complications. Estimated blood loss: None. Estimated Blood Loss: Estimated blood loss: none. Procedure: Pre-Anesthesia Assessment: - Prior Anticoagulants: The patient has taken no previous anticoagulant or antiplatelet agents. - ASA Grade Assessment: II - A patient with mild systemic disease. After obtaining informed consent, the endoscope was passed under direct vision. Throughout the procedure, the patient's blood pressure, pulse, and oxygen saturations were monitored continuously. The Endoscope was introduced through the mouth, and advanced to the second part of duodenum. The upper GI endoscopy was accomplished without difficulty. The patient tolerated the procedure well. The upper GI endoscopy was accomplished without difficulty. The patient tolerated the procedure well. Findings: The examined esophagus was normal. One large, necrotic non-bleeding cratered gastric ulcer was found at the pylorus. The ulcer was 3 cm deep almost to the point of perforation but without clear evidence of perforation. Biopsies were taken with a cold forceps from the ulcer edge for histology. Estimated blood loss: none. The duodenal bulb and second portion of the duodenum were normal. Impression: - Normal esophagus. - Non-bleeding gastric ulcer. Biopsied. - Normal duodenal bulb and second portion of the duodenum. Recommendation: - PPI protonix BID -NPO -general surgery evaluation - Await pathology results. Ariel Mascorro MD 08/10/2019 4:51:29 PM This report has been signed electronically. Note Initiated On: 08/10/2019 4:22 PM Number of Addenda: 0 I attest to the content of the Intraoperative Record and orders documented therein, exceptions below {[id number]}
--- NOTE | 2019-08-10 17:22 | Communication Note ---
Date of Service: August 10, 2019 GI brief note: spoke to general surgery Dr. Webster and after discussion, we agreed that it's best that the patient be transferred to a higher level of care (tertiary care center) for surgical evaluation of her severe pyloric ulcer. Spoke to Dr. Raf Landin and communicated plan of care as well, he agreed and plan is to arrange for transfer to tertiary care center. I explained this to the patient and answered her questions, she understood. Ariel Mascorro MD Gastroenterology
--- NOTE | 2019-08-10 17:42 | Discharge Summary ---
Date of Service August 10, 2019 Admission HPI Per Admitting Provider Hannah Ross is a 54 y/o female with past medical hx of HTN, pyelonephritis, and current smoker. She notes that she had onset yesterday morning of Nausea and Vomiting x2. Emesis was non-bloody/blood tinged. Later that day, she had onset of left sided abdominal pain after eating some ham and mashed potatoes that was characterized as a "knot." She only had a couple bites and then was adverse to eating again as this seemed to worsen pain. In the AM today, she had a couple of bites of toast, but has only been able to tolerate some sips of water. Last BM was yesterday morning and was normal without black/bloody stools. No prior black/bloody stools, GI bleeds. She does not use NSAIDs outside of occasional Tylenol, but nothing routine. No prior colonoscopies, as she was waiting to get health insurance as she is currently uninsured. Principal Diagnosis 3cm deep pyloric ulcer Discharge Exam Constitutional WD/WN, vitals as above Eyes EOM intact bilaterally; no conjunctival abnormality ENMT external ear and nose normal, oropharynx normal Neck trachea midline, no thyromegaly normal visual inspection Respiratory normal respiratory effort, lungs clear to auscultation no respiratory distress Cardiovascular RRR, no murmur, no edema Gastrointestinal (Abdomen) Inspection/Auscultation: abdomen normal to inspection; abdomen not distended Percussion/Palpation: + abdomen tender (Epigastric) and abdomen soft; no guarding and abdomen not rigid Musculoskeletal no cyanosis or clubbing, extremities motor strength 5/5 Skin no rashes, warm and dry Neurologic moves all extremities and awake Psychiatric Orientation: alert, oriented to person and cooperative Discharge Data Allergies Allergy/AdvReac Type Severity Reaction Status Date / Time No Known Allergies Allergy Unverified 08/09/19 18:48 Consultations 08/09/19 20:58 ED Decision to Admit Stat 08/09/19 23:43 Consult Gastroenterology Routine Procedures Performed Operation Date: 08/10/19 16:15 Actual Procedures p EGD Biopsy Cytology(Not Applicable) - Ariel Mascorro MD Ordered Studies 08/09/19 17:03 CT abd pelvis IV con only Stat Hospital Course (1) Abdominal pain: Possible gastritis and/or gastric ulcer seen on CT a/p on 08/09. - GI consulted - EGD showed 3cm deep, non-bleeding, necrotic ulcer. There was no evidence of perforation, but the GI physician felt perforation was highly likely. Our general surgery team did not feel comfortable performing this surgery, so she was transferred to a higher level of care. - She was started on pantoprazole 40mg IV BID with dose the evening of 08/10 per GI recommendations. (2) Hypertension: BP is 160/75 to 170/90 today. - Holding ACEi while NPO - Will restart as able (3) DVT prophylaxis: SCDs - Low DVT risk per admission calculator & also with concern for ulcer Total Time Total Time Spent Total Time Spent (In Minutes): 35 Discharge Plan Discharge Items Patient Disposition: Transfer Acute Care Hospital Reason For Visit: ABDOMINAL PAIN Discharge Diagnosis: Pyloric ulcer Condition on Discharge: Fair Activity: Resume your previous activity Non-emergency contact: Primary Care Provider and Mink Rancher Call non-emergency contact if: your symptoms worsen and your temperature is above 101 Follow-up/Referrals: Alhaji Laguna DO [Primary Care Provider] - Diet: Heart Healthy Addtl Attending Provider Instructions: Admitted with abdominal pain. Found to have 3cm deep pyloric ulcer. No evidence of perforation, but GI physician felt perforation could be imminent. Our general surgery team felt they could not do this surgery if perforation occurred. Transferred to tertiary care for surgical evaluation. Pending Studies at Discharge: No Stand-Alone Forms: Call Back Authorization, [facility] Skilled Items Patient informed of condition?: Yes DNR: No Discharge Level of Care: Other Communicable Disease: No Discharge Prognosis: Stable Lines: Peripheral IV Urinary Catheter: No Medications and DC Order Prescriptions: Discontinued acetaminophen [Tylenol Extra Strength] 500 mg Tablet 1,000 mg PO Q6H PRN (Reason: Pain) RF: 0 lisinopril 10 mg tablet 10 mg PO DAILY RF: 0 Discharge Orders: Discharge Order (Routine); Ordered 08/10/19 Ordered By: Raf Landin Admission Data Admit Date/Time: 08/09/19 21:57 Attending Provider: Raf Landin Admit Provider: Ford Hooper Primary Care Provider: Alhaji Laguna Other Providers: Fransisco Rodas ; Raf Landin ; Miguel Welsh Other Interventions: Discharge Summary Assessment (RN) Last Done: 08/10/19 16:51 Coding Level of Care Code D/C Day Management >30 mins Diagnoses Abdominal pain R10.9 Hypertension I10 DVT prophylaxis Z29.9
[2019-08-10] MEDS ORDERED: PANTOprazole 40 MG in SYRINGE 0 ML IV STA (18:09)
--- NOTE | 2019-08-10 22:57 | Billing Data ---
Date of Service August 10, 2019 Coding Level of Care Code 20471 OBS Care - Level 3
== END 2019-08-11 00:35 | disposition short-term general hospital (02) ==
LOC: ED 16:35 → 2W 16:35 → SUATTDRO 21:57 → 2W 23:07

== ENCOUNTER 2024-07-27 13:04 | Observation (INO) ==
--- NOTE | 2024-07-27 13:14 | ED Triage Note ---
Date of Service July 27, 2024 Provider in Triage Author: Lois Chairez History of Present Illness This patient was briefly evaluated while in triage. An abbreviated physical exam was performed. This patient is a 59-year-old Female who presents to the ED for evaluation here 07/22 --> + COVID, and dx with pyleo, discharged on cefdnir returns with continued illness-dizzy and feverish/sweats (not checking with a thermometer), backache no longer vomiting Physical Exam GENERAL: NAD, afebrile CARDIOVASCULAR: RRR RESPIRATORY: CTA ABDOMEN: BS x 4. Nontender to palpation. Initial orders for labs and / or imaging were placed and patient was placed in the waiting area until a bed is available. Please see further documentation for the full ED course.
[2024-07-27 13:48] LABS: Hematocrit (blood only) 38.9 % (37.0-47.0); Hemoglobin 13.4 g/dl (12.0-16.0); Mean Corpuscular Hemoglobin 31.8 pg (25.0-34.0); Mean Corpuscular Hgb Conc 34.4 g/dL (32.0-36.0); Mean Corpuscular Volume 92.4 fL (80.0-100.0); Mean Platelet Volume 9.2 fL (9.4-12.4); Platelet Count 260 K/uL (130-400); RDW Standard Deviation 40.5 fL (36.4-46.3); Red Blood Count 4.21 M/uL (4.20-5.40); White Blood Count 6.34 K/ul (4.8-10.8)
--- NOTE | 2024-07-27 13:59 | XRay Report ---
XR chest 1V not portable CLINICAL HISTORY: recent COVID, fevers TECHNIQUE: Single frontal radiograph of the chest was obtained. Comparison: None available at the time of this dictation. FINDINGS: No lines and tubes are seen. Calcified aortic knob is seen. The lungs are clear. No evidence of pleur al effusion or pneumothorax. IMPRESSION: No acute abnormalities and in particular no radiographic evidence of pneumonia. ACT 112: Negative or not required by law. Electronically signed by: Brown Fernández M.D. 07/27/2024 1:58 PM
[2024-07-27 14:04] LABS: Alanine Aminotransferase 51 U/L (7-52); Albumin Level 4.1 gm/dl (3.4-5.0); Alkaline Phosphatase 70 U/L (34-104); Anion Gap 13 (3-11); BUN Creatinine Ratio 15.2 (10-20); Bilirubin,Total 0.6 mg/dl (0.2-1.0); Blood Urea Nitrogen 16 mg/dl (6-23); Calcium 9.3 mg/dl (8.6-10.3); Carbon Dioxide 25 mmol/L (21-32); Chloride 96 mmol/L (98-107); Glucose 123 mg/dl (70-99(Fasting)); Sodium 134 mmol/L (136-145); Total Protein 8.1 gm/dl (6.0-8.3)
[2024-07-27 14:09] LABS: Basophils # (auto) 0.01 K/uL (0.00-0.20); Basophils % (auto) 0.2 %; Eosinophils # (auto) 0.02 K/uL (0.00-0.50); Eosinophils % (auto) 0.3 %; Hypersegmented Neutrophils 1+; Immature Granulocytes # (auto) 0.02 K/uL (0.01-0.20); Immature Granulocytes % (auto) 0.3 %; Lymphocytes # (auto) 1.23 K/uL (1.20-3.40); Lymphocytes % (auto) 19.4 %; Monocytes % (auto) 6.3 %; Neutrophils # (auto) 4.66 K/uL (1.40-6.50); Neutrophils % (auto) 73.5 %
[2024-07-27 14:27] LABS: Adenovirus PCR Not Detected (NotDetected); Bordetella parapertussis PCR Not Detected (NotDetected); Bordetella pertussis PCR Not Detected (NotDetected); Chlamydia pneumoniae PCR Not Detected (NotDetected); Coronavirus 229E PCR Not Detected (NotDetected); Coronavirus CoV-2 (COVID19)PCR DETECTED (NotDetected); Coronavirus HKU1 PCR Not Detected (NotDetected); Coronavirus NL63 PCR Not Detected (NotDetected); Coronavirus OC43PCR Not Detected (NotDetected); Human Metapneumovirus PCR Not Detected (NotDetected); Influenza A PCR Not Detected (NotDetected); Influenza B PCR Not Detected (NotDetected); Mycoplasma pneumoniae PCR Not Detected (NotDetected); Parainfluenza Virus 1 PCR Not Detected (NotDetected); Parainfluenza Virus 2 PCR Not Detected (NotDetected); Parainfluenza Virus 3 PCR Not Detected (NotDetected); Parainfluenza Virus 4 PCR Not Detected (NotDetected); Respiratory Syncytial VirusPCR Not Detected (NotDetected); Rhinovirus/Enterovirus PCR Not Detected (NotDetected)
[2024-07-27 15:01] LABS: Appearance Urine Clear (Clear); Bacteria Urine Automated None Seen (None Seen); Bilirubin Urine Negative (Negative); Blood Urine 2+ (Negative); Cast Urine Automated 0-2 /lpf (0-2); Color Urine Yellow; Epithelial Cell Urine Auto 0-2 /hpf (0-2); Glucose Urine UA Negative (Negative); Ketones Urine Negative (Negative); Leukocyte Esterase Urine Trace (Negative); Nitrite Urine Negative (Negative); Protein Urine Negative (Negative); RBC Urine Automated >20 /hpf (0-2); Specific Gravity Urine 1.011 (1.000-1.030); Urobilinogen Urine Negative (Negative); WBC Urine Automated 0-5 /hpf (0-5); pH Urine 7.5 (4.5-7.5)
--- NOTE | 2024-07-27 15:33 | Emergency Department Note ---
Impression & Plan Pyelonephritis, COVID, Light-headedness ED Provider Note NAME: ALISSA BUTLER AGE: 59 SEX: F : 1965 ARRIVES VIA: Walk-In INFORMANT: Patient, ED PROVIDER(S): Lane Hollingsworth MD CHIEF COMPLAINT: Right flank pain, weakness, dizziness HPI: This is a 59-year-old female sent for right flank pain, weakness, dizziness. Patient notes that she was here on , 5 days ago and diagnosed with COVID-19 as well as right pyelonephritis. Patient notes that she feels the same as when she left the hospital on . She will take antibiotic without any relief. She notes the persistent pain in the right flank. She also notes body wide aches, chills and fevers at home. Reports no nausea vomiting diarrhea. She does feel lightheaded when she stands. She is not having gait abnormalities or weakness in any extremity ROS: See above HPI for pertinent positives & negatives. A total of 10 systems reviewed and were otherwise negative. PAST MEDICAL HISTORY: See Below PAST SURGICAL HISTORY: See Below FAMILY HISTORY: See Below SOCIAL HISTORY: See Below HOME MEDICATIONS: See Below ALLERGIES: See Below VITALS: See Below PHYSICAL EXAMINATION: General: resting comfortably in no acute distress Head: Normocephalic and atraumatic Eyes: Normal inspection, extraocular muscles intact Ear, nose, throat: Normal external exam Neck: Normal range of motion Respiratory: lungs clear to auscultation bilaterally Cardiovascular: Regular rate/rhythm, no murmur GI: soft, nontender, no guarding or rebound, right CVA send tenderness moderate Extremities: nontender, moves all extremities Neuro: The patient awake and alert, appropriately conversive, no focal deficits, symmetric faces, symmetric motor function Skin: Warm, dry, and intact MEDICAL DECISION MAKING: This is a 59-year-old female presenting for flank pain, weakness and dizziness. Patient treated for pansensitive E. coli pyelonephritis diagnosed on CAT scan and urinalysis. Will repeat this urinalysis and CAT scan to help elucidate. Otherwise we will do CT of the head for her dizziness. Sounds mostly like lightheadedness, low concern for acute vertigo. -CT head reveals no acute process -Blood was reviewed showing a downtrending WBC count, now 6, elevated. Sodium slightly low, potassium slightly low. COVID-19 still positive. -CT of the abdomen/pelvis does reveal persistent pyelonephritis despite antibiotic -As patient feels no better and has persistent right flank pain, will admit to the hospitalist service at this time under Dr. Solano. Differential diagnosis: Sepsis, COVID-19, pyelonephritis, appendicitis, cholecystitis, vertigo Independent History obtained from: Diagnostics interpreted by me: ECG: None Cardiac Monitoring: An order was placed for continuous cardiac monitoring. The monitor shows a rate of 80 with sinus rhythm. Past Med/Surg History Problem List (Updated 07/27/24 @ 18:[address]worth MD) Light-headedness (Acute) COVID (Acute) Pyelonephritis (Acute) COVID-19 (Acute) Encounter for pre-operative examination DVT prophylaxis Abnormal CT scan Abdominal pain H/O tubal ligation (Acute) Hypertension Tobacco abuse (Chronic) Medical History Atrial fibrillation Surgical History H/O tubal ligation Family History Father Hypertension Heart disease Sister Nephrolithiasis Social History Smoking Status: Former smoker Tobacco Type: Cigarettes Cigarettes Per Day: 2-10; Do You Dip or Chew Tobacco: No; Hx Alcohol Use: No Hx Substance Use: No Preferred Language: Chinese Communication Ability: Effective School Bus Aide Required: No Beliefs That Will Affect Care: None Current Living Situation: Spouse Feels Safe at Home: Yes Assistive Devices: None Allergies Allergies Allergy/AdvReac Type Severity Reaction Status Date / Time No Known Allergies Allergy Unverified 08/09/19 18:48 Home Meds Home Medications Medication Instructions Recorded Confirmed apixaban 5 mg tablet (Eliquis) 5 mg PO BID 07/27/24 atorvastatin 20 mg tablet 20 mg PO DAILY 07/27/24 hydrochlorothiazide 25 mg tablet 25 mg PO DAILY 07/27/24 isosorbide mononitrate 30 mg 30 mg PO DAILY 07/27/24 tablet,extended release 24 hr losartan 25 mg tablet 25 mg PO DAILY 07/27/24 meclizine 25 mg tablet 25 mg PO TID PRN Dizziness Or 07/27/24 Vertigo metoprolol succinate 25 mg 25 mg PO DAILY 07/27/24 tablet,extended release 24 hr omeprazole 20 mg capsule,delayed 20 mg PO DAILY 07/27/24 release potassium chloride 10 mEq 10 meq PO DAILY 07/27/24 tablet,extended release Results & Data (ED) Vital Signs Vital Signs - 24 hr 07/27/24 13:11 07/27/24 16:23 Temperature 36.4 C L Temperature Source Oral Pulse Rate 103 H Pulse Rate [Right Finger] 80 Pulse Rhythm [Right Finger] Regular Pulse Strength [Right Finger] Normal Respiratory Rate 22 16 Respiratory Effort / Characteristics Non-Labored Non-Labored Respiratory Depth Normal Normal Respiratory Pattern Regular Blood Pressure 143/103 H Blood Pressure [Right Arm] 140/92 Blood Pressure Mean 116 Blood Pressure Mean [Right Arm] 108 Blood Pressure Position [Right Arm] Lying Pulse Oximetry 99 100 Oxygen Delivery Method Room Air Room Air Sepsis Recent Fever Within 48 Hours No Sepsis New/Unexplained Change in Mental Status N/A Sepsis Action Taken by Nursing No Action Required Laboratory Data 07/27/24 13:24 07/27/24 16:35 Lab Results 07/27/24 07/27/24 07/27/24 Range/Units 13:24 16:35 Unknown WBC 6.34 (4.8-10.8) K/ul RBC 4.21 (4.20-5.40) M/uL Hgb 13.4 (12.0-16.0) g/dl Hct 38.9 (37.0-47.0) % MCV 92.4 (80.0-100.0) fL MCH 31.8 (25.0-34.0) pg MCHC 34.4 (32.0-36.0) g/dL RDW Std Deviation 40.5 (36.4-46.3) fL RDW Coeff of Kiko 12.0 (11.5-14.5) % Plt Count 260 (130-400) K/uL MPV 9.2 L (9.4-12.4) fL Immature Gran % (Auto) 0.3 % Neut % (Auto) 73.5 % Lymph % (Auto) 19.4 % [place] % (Auto) 6.3 % Eos % (Auto) 0.3 % Baso % (Auto) 0.2 % Neut # (Auto) 4.66 (1.40-6.50) K/uL Lymph # (Auto) 1.23 (1.20-3.40) K/uL [place] # (Auto) 0.40 (0.11-0.59) K/uL Eos # (Auto) 0.02 (0.00-0.50) K/uL Baso # (Auto) 0.01 (0.00-0.20) K/uL Immature Gran # (Auto) 0.02 (0.01-0.20) K/uL Hypersegmented Neuts 1+ Sodium 134 L (136-145) mmol/L Potassium TNP 3.2 L Chloride 96 L (98-107) mmol/L Carbon Dioxide 25 (21-32) mmol/L Anion Gap 13 H (3-11) BUN 16 (6-23) mg/dl Creatinine 1.05 (0.6-1.2) mg/dl Est Cr Clr Drug Dosing Not Reportable eGFR 60.45 BUN/Creatinine Ratio 15.2 (10-20) Glucose 123 H (70-99(Fasting)) mg/dl Calcium 9.3 (8.6-10.3) mg/dl Total Bilirubin 0.6 (0.2-1.0) mg/dl AST TNP 22 ALT 51 (7-52) U/L Alkaline Phosphatase 70 (34-104) U/L Total Protein 8.1 (6.0-8.3) gm/dl Albumin 4.1 (3.4-5.0) gm/dl Globulin 4.0 (2.5-4.0) gm/dl Albumin/Globulin Ratio 1.0 (0.9-2) Urine Color Yellow Urine Appearance Clear (Clear) Urine pH 7.5 (4.5-7.5) Ur Specific [place] 1.011 (1.000-1.030) Urine Protein Negative (Negative) Urine Glucose (UA) Negative (Negative) Urine Ketones Negative (Negative) Urine Blood 2+ H (Negative) Urine Nitrite Negative (Negative) Urine Bilirubin Negative (Negative) Urine Urobilinogen Negative (Negative) Ur Leukocyte Esterase Trace H (Negative) Urine WBC (Auto) 0-5 (0-5) /hpf Urine RBC (Auto) >20 H (0-2) /hpf U Hyaline Cast (Auto) 0-2 (0-2) /lpf U Epithel Cells (Auto) 0-2 (0-2) /hpf Urine Bacteria (Auto) None Seen (None Seen) Adenovirus (PCR) Not Detected (NotDetected) B. pertussis DNA (PCR) Not Detected (NotDetected) B.parapertussis DNA PCR Not Detected (NotDetected) C. pneumoniae DNA (PCR) Not Detected (NotDetected) Coronavirus OC43 (PCR) Not Detected (NotDetected) Coronavirus HKU1 (PCR) Not Detected (NotDetected) Coronavirus 229E (PCR) Not Detected (NotDetected) SARS-CoV-2 (PCR) DETECTED A (NotDetected) Coronavirus NL63 (PCR) Not Detected (NotDetected) Human Metapneumovir PCR Not Detected (NotDetected) Influenza Type A (PCR) Not Detected (NotDetected) Influenza Type B (PCR) Not Detected (NotDetected) M. pneumoniae (PCR) Not Detected (NotDetected) Parainfluenza 1 (PCR) Not Detected (NotDetected) Parainfluenza 2 (PCR) Not Detected (NotDetected) Parainfluenza 3 (PCR) Not Detected (NotDetected) Parainfluenza 4 (PCR) Not Detected (NotDetected) RSV (PCR) Not Detected (NotDetected) Entero/Rhino (PCR) Not Detected (NotDetected) Administered Medications Discontinued Medications Sodium Chloride (Nss) 1,000 mls @ 999 mls/hr IV .Q1H1M ONE Stop: 07/27/24 16:31 Last Infusion: 07/27/24 17:09 Dose: Infused Documented By: Admin: 07/27/24 15:42 Dose: 999 mls/hr Documented By: STEFANY Acetaminophen (Ofirmev) 1,000 mg in 100 mls @ 400 mls/hr IV NOW STA Stop: 07/27/24 15:45 Last Infusion: 07/27/24 17:09 Dose: Infused Documented By: Admin: 07/27/24 15:45 Dose: 400 mls/hr Documented By: STEFANY Ioversol (Optiray 320 100ml) 90 ml IV ONCE ONE Stop: 07/27/24 16:13 Last Admin: 07/27/24 16:13 Dose: 90 ml Documented By: SAY Imaging Data Radiologist's Impression: Chest X-Ray 07/27/24 13:15 XR chest 1V not portable CLINICAL HISTORY: recent COVID, fevers TECHNIQUE: Single frontal radiograph of the chest was obtained. Comparison: None available at the time of this dictation. FINDINGS: No lines and tubes are seen. Calcified aortic knob is seen. The lungs are clear. No evidence of pleural effusion or pneumothorax. IMPRESSION: No acute abnormalities and in particular no radiographic evidence of pneumonia. ACT 112: Negative or not required by law. Electronically signed by: Brown Fernández M.D. 07/27/2024 1:58 PM Abdomen/Pelvis CT 07/27/24 15:31 INDICATION: Worsening abdominal pain. History of pyelonephritis. COMPARISON: CT from 07/22/2024. TECHNIQUE: Axial CT images of the abdomen and pelvis were obtained following IV contrast administration. Coronal and sagittal reformations were reviewed. FINDINGS: Visualized lung bases appear unremarkable. Mild gallbladder distention. The liver, spleen, pancreas and adrenal glands appear unremarkable. Patchy attenuation of the right kidney compatible with given history of pyelonephritis. No renal fluid collection identified. No hydronephrosis. A few subcentimeter bilateral renal cysts. Atheromatous plaquing of the abdominal aorta without dissection or aneurysm. Small hiatal hernia. Mildly prominent retroperitoneal lymph nodes on the right, unchanged. No evidence of bowel obstruction/colitis/appendicitis. No free air. No drainable fluid collection. The urinary bladder appears unremarkable. Calcifications in the uterus likely related to fibroids. No acute osseous abnormality evident. IMPRESSION: Patchy attenuation of the right kidney compatible with given history of pyelonephritis. No renal fluid collection identified. Electronically signed by Danny Polanco 07-27-2024 4:[address] 07/27/24 15:31 INDICATION: Pain and injury. COMPARISON: No relevant priors available TECHNIQUE: Axial CT images of the head were obtained without IV contrast. Coronal and sagittal reformations were reviewed. FINDINGS: [place]-white differentiation is relatively preserved. No mass, mass effect or midline shift. . Mild chronic ischemic white matter changes. No evidence of acute large territorial infarction or acute intracranial hemorrhage. Ventricles appear normal in size. Basal cisterns are patent. No depressed calvarial fracture. Mild right maxillary sinus mucosal thickening. IMPRESSION: No acute intracranial process. Electronically signed by Danny Polanco 07-27-2024 4:22 PM Discharge Plan Visit Data Chief Complaint: Flu Like Symptoms Stated Complaint: FEVER, DIZZINESS, NEGATIVE COVID TEST, HERE THURS ED Provider: Lane Hollingwsorth Discharge Problem: Pyelonephritis, COVID, Light-headedness Forms Stand Alone Forms: [facility] Prescriptions Prescriptions: No Action atorvastatin 20 mg tablet 20 mg PO DAILY isosorbide mononitrate 30 mg tablet extended release 24 hr 30 mg PO DAILY potassium chloride 10 mEq tablet extended release 10 meq PO DAILY meclizine 25 mg tablet 25 mg PO TID PRN (Reason: Dizziness Or Vertigo) losartan 25 mg tablet 25 mg PO DAILY omeprazole 20 mg capsule,delayed release(DR/EC) 20 mg PO DAILY hydrochlorothiazide 25 mg tablet 25 mg PO DAILY metoprolol succinate 25 mg tablet extended release 24 hr 25 mg PO DAILY Eliquis 5 mg tablet 5 mg PO BID Referrals Referrals: Meka Nagel PA-C [Primary Care Provider] -
[2024-07-27] MEDS: SODIUM CHLORIDE 0.9% 1,000 ML IV ONE (15:42)
[2024-07-27] MEDS: ACETAMINOPHEN 1,000 MG/100 ML VIAL IV STA (15:45)
[2024-07-27] MEDS: OPTIRAY 320 100ml IV ONE (16:13)
--- NOTE | 2024-07-27 16:23 | CT Scan Report ---
INDICATION: Pain and injury. COMPARISON: No relevant priors available TECHNIQUE: Axial CT images of the head were obtained without IV contrast. Coronal and sagittal reformations were reviewed. FINDINGS: [place]-white differentiation is relatively preserved. No mass, mass effect or midline shift. . Mild chronic ischemic white matter changes. No evidence of acute large territorial infarction or acute intracranial hemorrhage. Ventricles appear normal in size. Basal cisterns are patent. No depressed calvarial fracture. Mild right maxillary sinus mucosal thickening. IMPRESSION: No acute intracranial process. Electronically signed by Danny Polanco 07-27-2024 4:22 PM
--- NOTE | 2024-07-27 16:34 | CT Scan Report ---
INDICATION: Worsening abdominal pain. History of pyelonephritis. COMPARISON: CT from 07/22/2024. TECHNIQUE: Axial CT images of the abdomen and pelvis were obtained following IV contrast administration. Coronal and sagittal reformations were reviewed. FINDINGS: Visualized lung bases appear unremarkable. Mild gallbladder distention. The liver, spleen, pancreas and adrenal glands appear unremarkable. Patchy attenuation of the right kidney compatible with given history of pyelonephritis. No renal fluid collection identified. No hydronephrosis. A few subcentimeter bilateral renal cysts. Atheromatous plaquing of the abdominal aorta without dissection or aneurysm. Small hiatal hernia. Mildly prominent retroperitoneal lymph nodes on the right, unchanged. No evidence of bowel obstruction/colitis/appendicitis. No free air. No drainable fluid collection. The urinary bladder appears unremarkable. Calcifications in the uterus likely related to fibroids. No acute osseous abnormality evident. IMPRESSION: Patchy attenuation of the right kidney compatible with given history of pyelonephritis. No renal fluid collection identified. Electronically signed by Danny Polanco 07-27-2024 4:33 PM
[2024-07-27 17:09] LABS: Potassium 3.2 mmol/L (3.5-5.1)
--- NOTE | 2024-07-27 17:57 | History & Physical Report ---
Date of Service July 27, 2024 Assessment & Plan (1) Pyelonephritis: (2) COVID-19: (3) Hypertension: Gem Young is a 59F with a PMHx of HTN, and atrial fibrillation who presents with continued illness symptoms. Recent ER visit 07/22 dx with COVID and pyelonephritis - discharged on cefdinir which was adequate coverage for kline sensitive E.coli. Switch to Cipro by PCP on 07/26. Presents to ED with continued subjective fevers and weakness. #Pyelonephritis UC 07/22: kline-sensitive E.coli. Was appropriately on Cefdinir - will continue ceftriaxone CTAP did not show worsening. afebrile on admission, no leukocytosis Repeat UA much improved #COVID CXR with out acute abnormalities. No cough or hypoxia. No indication for steroids or antivirals at the time of admission. #Weakness Likely secondary to viral and bacterial illness. Head CT no acute process. Will give additional 1L IVF. K (3.2) replaced PO 40meq PT/OT AM CBC and BMP #Afib / HTN Continue Eliquis, imdur, losartan, metoprolol Hold hydrochlorothiazide Dispo: obs to medical hopeful d/c 07/28 DVT proh: home Eliquis CODE STATUS: full updated at bedside History of Present Illness Chief Complaint: flu like symptoms Primary Care Provider: Meka Young is a 59F with a PMHx HTN, and atrial fibrillation who presents with continued illness symptoms. She was recently seen in the ER on 07/22 dx with COVID and UTI with concerns for pyelonephritis discharged on PO cefdinir for her kline sensitive E.coli UTI. She has been taking her cefdinir as prescribed and then yesterday was started on cirpo by her PCP. Instructed to come to the ER if continuing to have fevers and chills. Subjective fevers at home, not measuring. Reports weakness but no falls. No cough or shortness of breath. Denies urinary frequency, urgency or pain. Does report hematuria when she presented to the ER the first time but this has improved. No hx of kidney stones. Good appetite. No nausea vomiting or diarrhea. Has dizziness at baseline for which she has prn meclazine, took one dose yesterday but laid on the couch after so unsure if it made a differnce. She would like to be a full code. present at bedside during evaluation. ED course NSS 1L x 1 Tylenol 1000mg IV x1 Ceftriaxone 2g x 1 Allergies Allergy/AdvReac Type Severity Reaction Status Date / Time No Known Allergies Allergy Unverified 08/09/19 18:48 Home Medications Medication Instructions Recorded Confirmed Type apixaban 5 mg tablet (Eliquis) 5 mg PO BID 07/27/24 07/27/24 History atorvastatin 20 mg tablet 20 mg PO DAILY 07/27/24 07/27/24 History hydrochlorothiazide 25 mg tablet 25 mg PO DAILY 07/27/24 07/27/24 History isosorbide mononitrate 30 mg 30 mg PO DAILY 07/27/24 07/27/24 History tablet,extended release 24 hr losartan 25 mg tablet 25 mg PO DAILY 07/27/24 07/27/24 History meclizine 25 mg tablet 25 mg PO TID PRN Dizziness Or 07/27/24 07/27/24 History Vertigo metoprolol succinate 25 mg 25 mg PO DAILY 07/27/24 07/27/24 History tablet,extended release 24 hr omeprazole 20 mg capsule,delayed 20 mg PO DAILY 07/27/24 07/27/24 History release potassium chloride 10 mEq 10 meq PO DAILY 07/27/24 History tablet,extended release cefpodoxime 200 mg tablet 200 mg PO BID 5 days #10 tabs 07/28/24 Rx ondansetron 4 mg disintegrating 4 mg PO Q8H PRN nausea and 07/28/24 Rx tablet vomiting 3 days #7 tabs Past Med/Surg History Problem List (Updated 07/27/24 @ 18:[address] MD) Light-headedness (Acute) COVID (Acute) Pyelonephritis (Acute) COVID-19 (Acute) Encounter for pre-operative examination DVT prophylaxis Abnormal CT scan Abdominal pain H/O tubal ligation (Acute) Hypertension Tobacco abuse (Chronic) Medical History Atrial fibrillation Surgical History H/O tubal ligation Family History Father Hypertension Heart disease Sister Nephrolithiasis Social History Smoking Status: Former smoker Tobacco Type: Cigarettes Cigarettes Per Day: 2-10; Second Hand Exposure: Yes; Do You Dip or Chew Tobacco: No; Hx Alcohol Use: Yes Alcohol type: other Hx Substance Use: No Preferred Language: Amharic Communication Ability: Effective Forge Tender Required: No Beliefs That Will Affect Care: None Current Living Situation: Spouse Other Information That Helps Us Care for You: No Feels Safe at Home: No Is there a partner from a previous relationship who is making you feel unsafe now?: No Any Concerns about Your Family Situation: No Would You Like to Speak to Someone About Your Situation: No Safety Concerns: Feels Safe At This Time Assistive Devices: None Review of Systems Review of Systems: All systems reviewed & are unremarkable except as noted in Subjective Physical Exam Physical Exam: General: NAD, VS as above, lying in bed, Resp: normal respiratory effort, lungs clear to auscultation, on room air, no cough CV: afib, no murmur, Abd: normal bowel sounds, non tender, soft Extremities: Moves all extremities, no edema Neuro: A&O x3, Skin: intact, no lesions noted Results & Data Results & Data Vital Signs (Past 12 Hours) Vital Signs Temp Pulse Pulse Resp BP BP Pulse Ox 07/27/24 16:23 80 16 140/92 100 07/27/24 13:11 97.5 F L 103 H 22 143/103 H 99 O2 Del Method 07/27/24 16:23 Room Air 07/27/24 13:11 Room Air Laboratory Results CBC, chemistry, UA, biofire reviewed Diagnostic Findings CT A/p, cxr and CT head reviewed Supervising Physician Co-Signing Physician Notes Attending Attestation and Admit Note: Pt seen/examined, chart reviewed, care plan d/w TRENTON Urrutia. I agree w/ the flores components of her documentation with the following addition - * acute kidney injury (DELLA) 59yo female with HTN and atrial fibrillation (on Eliquis) who was dx with COVID- 19 & UTI/right-sided pyelonephritis on 07/22 during an ER visit at [facility]. She was d/c home on PO cefdinir. Supportive care advised for the COVID-19. Despite appropriate abx for the UTI/pyelonephritis she has continued to feel poorly with generalized unwellness, myalgias, etc. Upon presentation today a repeat CT a/p was completed showing the right-sided pyelonephritis but no worsening and no evidence of ericka-nephric abscess. Vitals remain stable, leukocytosis has resolved in comparison to 07/22, and prior DELLA with Cr 1.36 has improved down to 1. During my ER assessment she was resting in bed comfortably and denied any flank pain or abd pain. PMH/PSH/allergies/meds/sochx/famhx - reviewed VSS, afebrile gen - nontoxic, NAD mouth - MMM neck - no JVD heart - irregular, s1 s2, no murmur lungs - CTA b/l abd - soft, NT, no flank tenderness b/l, ND, BS+, no HSM ext - no edema, pulses 2+ b/l labs reviewed imaging reviewed A/P: 1. recent DELLA - resolving; hydrate with IV fluids, repeat Cr am 2. right-sided pyelonephritis/UTI - 2nd to pansens e.coli - improving - leukocytosis resolved, clinically stable; cont cephalosporin 3. COVID-19 - fatigue, weakness, etc likely 2nd to #2 and her COVID; supportive care; would not Rx with anti-virals or steroids at this time 4. a.fib - cont Eliquis, cont meto succ observation status for now Austin Solano MD PG Care Time/CCT Total # of Minutes Spent Total Time Spent with Patient: Total time spent is greater than 50% in coordination of care (as documented) at patient's floor/unit and/or counseling patient: Coding Level of Care Code 68968 INT INP/OBS CARE 3/75MIN Diagnoses Pyelonephritis N12 COVID-19 U07.1 Hypertension I10
[2024-07-27] MEDS: cefTRIAXone SODIUM 2,000 MG/50 ML BAG IV STA (18:21)
[2024-07-27] MEDS: POTASSIUM CHLORIDE CRTAB 20 MEQ TABCR PO STA (18:44)
[2024-07-27] MEDS: SODIUM CHLORIDE 0.9% 1,000 ML IV SCH (18:46)
[2024-07-27] MEDS: ONDANSETRON INJ 2 MG/ML 2 ML VIAL IV STA (20:44)
[2024-07-27] MEDS ORDERED: POLYETHYLENE (MIRALAX) 17 GM PACK PO PRN (22:20)
[2024-07-27] MEDS: ACETAMINOPHEN 325 MG TAB PO PRN (23:09)
[2024-07-28] MEDS: APIXABAN 5 MG TABLET PO SCH (00:13)
[2024-07-28] MEDS ORDERED: FAMOTIDINE 20 MG TAB PO PRN (00:30)
[2024-07-28] MEDS: PROCHLORPERAZINE 5 MG in SYRINGE 4 ML IV PRN (01:06)
[2024-07-28] MEDS: DICLOFENAC SOD 1% GEL 100 GM TUBE EXT SCH (01:06)
[2024-07-28] MEDS: CELECOXIB 100 MG CAP PO ONE (01:06)
[2024-07-28] MEDS: CeleBREX 200 MG CAP PO ONE (02:14)
[2024-07-28 06:10] LABS: Hematocrit (blood only) 31.8 % (37.0-47.0); Hemoglobin 10.8 g/dl (12.0-16.0); Mean Corpuscular Hemoglobin 31.6 pg (25.0-34.0); Mean Platelet Volume 9.4 fL (9.4-12.4); Platelet Count 242 K/uL (130-400); RDW Coefficient of Variation 12.2 % (11.5-14.5); RDW Standard Deviation 41.1 fL (36.4-46.3); Red Blood Count 3.42 M/uL (4.20-5.40); White Blood Count 4.51 K/ul (4.8-10.8)
[2024-07-28 06:27] LABS: BUN Creatinine Ratio 14.3 (10-20); Calcium 8.6 mg/dl (8.6-10.3); Creatinine Clr Calc Pharmacy 81.3 ml/min; Potassium 3.7 mmol/L (3.5-5.1)
[2024-07-28 06:32] LABS: Eosinophils # (auto) 0.02 K/uL (0.00-0.50); Eosinophils % (auto) 0.4 %; Immature Granulocytes # (auto) 0.03 K/uL (0.01-0.20); Immature Granulocytes % (auto) 0.7 %; Lymphocytes % (auto) 22.2 %; Monocytes # (auto) 0.34 K/uL (0.11-0.59); Monocytes % (auto) 7.5 %; Neutrophils # (auto) 3.12 K/uL (1.40-6.50); Neutrophils % (auto) 69.2 %; Polychromasia 1+
[2024-07-28] MEDS: ACETAMINOPHEN 500 MG TAB PO PRN (07:43)
[2024-07-28] MEDS: MECLIZINE HCL 25 MG TAB PO PRN (07:44)
[2024-07-28] MEDS: PANTOprazole 40 MG TAB PO SCH (07:45)
[2024-07-28] MEDS: LOSARTAN POTASSIUM 25 MG TAB PO SCH (07:45)
[2024-07-28] MEDS: METOPROLOL SUCC 25MG EXT REL TAB PO SCH (07:45)
[2024-07-28] MEDS: ISOSORBIDE MONO EXTENDED REL 30 MG TABCR PO SCH (07:45)
[2024-07-28] MEDS: ATORVASTATIN 20 MG TAB PO SCH (07:46)
[2024-07-28 07:51] VITALS: O2SAT 98
--- NOTE | 2024-07-28 07:56 | Hospitalist Progress Note ---
Date of Service July 28, 2024 Assessment & Plan (1) Pyelonephritis: (2) COVID-19: (3) Hypertension: Plan Hannah is a 59F with a PMHx of HTN, and atrial fibrillation who presents with continued illness symptoms. Recent ER visit 07/22 dx with COVID and pyelonephritis - discharged on cefdinir which was adequate coverage for kline sensitive E.coli. Switch to Cipro by PCP on 07/26. Presents to ED with continued subjective fevers and weakness. #Pyelonephritis UC 07/22: kline-sensitive E.coli. Was appropriately on Cefdinir - will continue ceftriaxone CTAP did not show worsening. afebrile on admission, no leukocytosis Repeat UA much improved #COVID CXR with out acute abnormalities. No cough or hypoxia. No indication for steroids or antivirals at the time of admission. #Weakness Likely secondary to viral and bacterial illness. Head CT no acute process. Will give additional 1L IVF. K (3.2) replaced PO 40meq PT/OT AM CBC and BMP #Afib / HTN Continue Eliquis, imdur, losartan, metoprolol Hold hydrochlorothiazide Dispo: obs to medical hopeful d/c 07/28 DVT proh: home Eliquis CODE STATUS: full updated at bedside Admission and Anticipated Discharge Date Admission Date: July 27, 2024 Results & Data Results & Data Vital Signs (Past 12 Hours) Vital Signs Temp Pulse Pulse Resp BP BP Pulse Ox 07/28/24 07:47 36.7 C 78 16 135/84 98 07/27/24 21:50 36.3 C L 73 18 139/84 93 07/27/24 21:29 70 16 140/83 98 07/27/24 20:57 76 21 107/89 98 O2 Del Method 07/28/24 07:47 Room Air 07/27/24 21:50 Room Air 07/27/24 21:29 Room Air 07/27/24 20:57 Room Air
[2024-07-28] MEDS ORDERED: DICLOFENAC SOD 1% GEL 100 GM TUBE EXT SCH (09:00)
[2024-07-28] MEDS: ONDANSETRON INJ 2 MG/ML 2 ML VIAL IV PRN (13:30)
[2024-07-28 15:23] VITALS: PULSE 76; RESP 18; TEMP 97.9
--- NOTE | 2024-07-28 15:55 | Discharge Summary ---
Date of Service July 28, 2024 Admission HPI Per Admitting Provider Hannah is a 59F with a PMHx HTN, and atrial fibrillation who presents with continued illness symptoms. She was recently seen in the ER on 07/22 dx with COVID and UTI with concerns for pyelonephritis discharged on PO cefdinir for her kline sensitive E.coli UTI. She has been taking her cefdinir as prescribed and then yesterday was started on cirpo by her PCP. Instructed to come to the ER if continuing to have fevers and chills. Subjective fevers at home, not measuring. Reports weakness but no falls. No cough or shortness of breath. Denies urinary frequency, urgency or pain. Does report hematuria when she presented to the ER the first time but this has improved. No hx of kidney stones. Good appetite. No nausea vomiting or diarrhea. Has dizziness at baseline for which she has prn meclazine, took one dose yest erday but laid on the couch after so unsure if it made a differnce. She would like to be a full code. present at bedside during evaluation. ED course NSS 1L x 1 Tylenol 1000mg IV x1 Ceftriaxone 2g x 1 Admission Exam Per Admitting Provider General: NAD, VS as above, lying in bed, Resp: normal respiratory effort, lungs clear to auscultation, on room air, no cough CV: afib, no murmur, Abd: normal bowel sounds, non tender, soft Extremities: Moves all extremities, no edema Neuro: A&O x3, Skin: intact, no lesions noted Principal Diagnosis pyelonephritis Discharge Exam Constitutional: no acute distress HEENT: NCAT, no conjunctival injection CV: RRR, extremities well-perfused, no LE edema Resp: lungs CTABL, no increased work of breathing GI: nondistended, +L CVA tenderness MSK: no gross deformities Skin: warm, dry, no rash appreciated Neuro: alert, oriented, no focal neurologic deficit appreciated Discharge Data Allergies Allergy/AdvReac Type Severity Reaction Status Date / Time No Known Allergies Allergy Unverified 08/09/19 18:48 Consultations 07/27/24 17:47 ED Decision to Admit Stat Ordered Studies 07/27/24 15:31 CT abd pelvis IV con only Stat CT head/brain wo con Stat Hospital Course (1) Pyelonephritis: (2) COVID-19: (3) Hypertension: Plan Hannah is a 59F with a PMHx of HTN, and atrial fibrillation who presented with continued illness symptoms. Recent ER visit 07/22 dx with COVID and pyelonephritis - discharged on cefdinir which was adequate coverage for kline sensitive E.coli. Switch to Cipro by PCP on 07/26. Presented to ED with continued subjective fevers and weakness. #Pyelonephritis CTAP did not show worsening of pyelonephritis compared to CT 07/22. afebrile on admission, no leukocytosis UC 07/22: kline-sensitive E.coli. Majority of antibiotic thus far has consisted of 3rd gen cephalosporin - will finish out course with Cefpodoxime 200mg BID x5 more days. Small amount of Zofran sent for nausea. #COVID CXR with out acute abnormalities. No cough or hypoxia. No indication for steroids or antivirals at the time of admission. Continue supportive care as needed. #Weakness Likely secondary to viral and bacterial illness. Head CT no acute process. PT/OT - patient fully independent, no therapy needed. #Afib / HTN Continue home meds Total Time Total Time Spent Total Time Spent (In Minutes): see attending attestation Discharge Plan Discharge Items Patient Disposition: Home - Self-Care Reason For Visit: WEAKNESS, COVID, UTI Discharge Diagnosis: Pyelonephritis Activity: Resume your previous activity Non-emergency contact: Primary Care Provider Call non-emergency contact if: you have any medication questions, your symptoms worsen, your pain is worsening and you have a fever Follow-up/Referrals: Meka Nagel PA-C [Primary Care Provider] - 08/10/24 10:30 am Diet: Regular Addtl Attending Provider Instructions: You were admitted to the hospital with pyelonephritis. As discussed, between this and your recent Covid infection, it is not unusual to have some residual discomfort and fatigue; this may last for multiple weeks but will gradually improve over time. Your urine culture showed that the bacteria that was growing is sensitive to a broad group of antibiotics. We are sending a prescription for an antibiotic called Cefpodoxime - please take 1 tablet twice daily for 5 more days, with your first dose tonight. We are also sending a small number of Zofran to your pharmacy - this medication is for nausea - take up to 1 tablet every 8 hours but only as needed. A discharge summary will be sent to your primary care physician to ensure continuity of care. Please bring this discharge summary with you to your next office appointment so that your provider can review it at that time. Medications: Your medication list has been reviewed and reconciled upon discharge to ensure accuracy and continuity of care. An updated list of all your medications is included with your hospital discharge paperwork. Please review this list closely and make note of any changes to your medications. Follow up appointments: - Make a follow up appointment with your PCP within the next week. It is very important that you follow up with them shortly after discharge from the hospital. - Keep all of your follow up appointments as already scheduled. If you cannot make an appointment, notify your provider. CONTACT YOUR PRIMARY CARE PROVIDER if you experience any of the following: - Difficulty following your treatment plan - Difficulty taking any of your medications CALL 911 OR GO TO THE EMERGENCY DEPARTMENT if you experience any of the following: - Sudden, severe abdominal pain or nausea/vomiting - Severe chest pain or chest pain that radiates to your jaw or arm - Sudden, severe shortness of breath or difficulty breathing Pending Studies at Discharge: No Stand-Alone Forms: My [facility], Smoking Cessation Medications and DC Order Prescriptions: New cefpodoxime 200 mg tablet 200 mg PO BID 5 Days Qty: 10 0RF Rx Instructions: must administer with a meal/food ondansetron 4 mg tablet,disintegrating 4 mg PO Q8H PRN (Reason: nausea and vomiting) 3 Days Qty: 7 0RF Continued atorvastatin 20 mg tablet 20 mg PO DAILY isosorbide mononitrate 30 mg tablet extended release 24 hr 30 mg PO DAILY potassium chloride 10 mEq tablet extended release 10 meq PO DAILY meclizine 25 mg tablet 25 mg PO TID PRN (Reason: Dizziness Or Vertigo) losartan 25 mg tablet 25 mg PO DAILY omeprazole 20 mg capsule,delayed release(DR/EC) 20 mg PO DAILY hydrochlorothiazide 25 mg tablet 25 mg PO DAILY metoprolol succinate 25 mg tablet extended release 24 hr 25 mg PO DAILY Eliquis 5 mg tablet 5 mg PO BID Discharge Orders: Discharge Order (Routine); Ordered 07/28/24 Ordered By: Ej hWitt/Other Patient Handouts: Preventing Deep Vein Thrombosis Admission Data Admit Date/Time: 07/27/24 18:28 Attending Provider: Francesco Arnold Admit Provider: Austin Solano Primary Care Provider: Meka Nagel Other Providers: Austin Solano Other Interventions: Discharge Summary Assessment (RN) Last Done: 07/28/24 16:26 Supervising Physician Co-Signing Physician Notes Attending attestation Pt seen and examined in concert with Dr. Leslie. In agreement with the documented findings as noted in the resident documentation with any exceptions or additions as noted here. Resting in bed complaining of mild ongoing weakness and flank pain which has been gradually improving through the course of her pyelonephritis. She is able to tolerate activity with PT and in the room without significant issue and reports no infectious symptoms at present including fevers, chills, sweats and abd pain. VS as noted. On examination, S1/S2 nl RRR no MCG. CTAB. Abd NT/ND BS+ve. WBC 4.51, Cr 0.77, UA w/ trace LE Pyelonephritis - complette course of cefpodoxime as noted and add ondansetron for nausea w/ counseling for use prior to escalation of symptoms. COVID-19 - supportive care as noted Weakness - below baseline with adequate safety at home per PT/OT assessment. Else see resident documentation as noted. Total attending physician time spent with this patient's care on the day of discharge: 40 min. Resident Activity Tracking Resident Involvement: Resident Care Provided Care Provided: Adult Hospital Medicine
[2024-07-28] MEDS: cefTRIAXone SODIUM 2,000 MG/50 ML BAG IV SCH (16:16)
[2024-07-28 16:27] VITALS: BP 156/85
== END 2024-07-28 17:05 | disposition home or self-care (01) ==
LOC: 3E 13:04 → ED 13:04 → SUATTDRO 18:28 → 3E 21:29
DX: I48.91 Unspecified atrial fibrillation; U07.1 COVID-19; B96.20 Unspecified Escherichia coli [E. coli] as the cause of diseases classified elsewhere; Z79.01 Long term (current) use of anticoagulants; I10 Essential (primary) hypertension; Z87.891 Personal history of nicotine dependence; Z79.899 Other long term (current) drug therapy; N12 Tubulo-interstitial nephritis, not specified as acute or chronic

== ENCOUNTER 2024-09-06 12:40 | Inpatient (IN) ==
--- NOTE | 2024-09-06 16:09 | Anesthesiology Consultation ---
Date of Service September 06, 2024 Assessment & Plan (1) Encounter for pre-operative examination: Chart Review Chart Review: Acceptable Risk for Surgery and Patient NOT seen in Pre Admission Testing Consults Requested none History Surgery Operation Date: 09/06/24 12:40 Proposed Procedures p Laparoscopic Repair Perforated Gastric Ulcer - Jay William DO, FACS Allergies Allergy/AdvReac Type Severity Reaction Status Date / Time No Known Allergies Allergy Unverified 08/09/19 18:48 Medications Home Medications Medication Instructions Recorded Confirmed Last Taken apixaban 5 mg tablet (Eliquis) 5 mg PO BID 07/27/24 07/27/24 07/27/24 08:00 atorvastatin 20 mg tablet 20 mg PO DAILY 07/27/24 07/27/24 07/27/24 hydrochlorothiazide 25 mg tablet 25 mg PO DAILY 07/27/24 07/27/24 Unknown isosorbide mononitrate 30 mg 30 mg PO DAILY 07/27/24 07/27/24 Unknown tablet,extended release 24 hr losartan 25 mg tablet 25 mg PO DAILY 07/27/24 07/27/24 Unknown meclizine 25 mg tablet 25 mg PO TID PRN Dizziness Or 07/27/24 07/27/24 Unknown Vertigo metoprolol succinate 25 mg 25 mg PO DAILY 07/27/24 07/27/24 Unknown tablet,extended release 24 hr omeprazole 20 mg capsule,delayed 20 mg PO DAILY 07/27/24 07/27/24 Unknown release potassium chloride 10 mEq 10 meq PO DAILY 07/27/24 Unknown tablet,extended release Past Medical History Medical History Closed left hip fracture Pyelonephritis Hypertension Atrial fibrillation Past Family History Family History Father Hypertension Heart disease Sister Nephrolithiasis Past Surgical History Surgical History H/O tubal ligation Past Anesthesia History No Hx of Anesthesia Complications and No Family Hx of Anesthesia Complications Social History Smoking Status: Former smoker tobacco type: cigarettes Smoking cigarettes per day: 2-10 Do You Dip or Chew Tobacco: No Hx Alcohol Use: Yes Alcohol type: other alcohol intake frequency: holidays/special occasions only Hx Substance Use: No substance use type: does not use Testing Laboratory Results K 4.2. See paper chart for full labs from OSH. Electrocardiogram a fib.
[2024-09-06] MEDS ORDERED: fentaNYL citrate PF 100 MCG/2 ML VIAL ONE (16:15)
[2024-09-06] MEDS ORDERED: DEXAMETHASONE SOD INJ 4 MG/ML VIAL ONE (16:15)
[2024-09-06] MEDS ORDERED: LIDOCAINE 2% 2 ML VIAL/AMP(20MG/ML) INFIL ONE (16:15)
[2024-09-06] MEDS ORDERED: ROCURONIUM BROMIDE 10 MG/ML 5 ML VIAL IV ONE (16:15)
[2024-09-06] MEDS ORDERED: PROPOFOL IV EMULSION 10 MG/ML 20 ML VIAL IV ONE (16:15)
[2024-09-06] MEDS ORDERED: MIDAZOLAM HCL 1 MG/ML 2ML VIAL ONE (16:16)
[2024-09-06] MEDS ORDERED: ALBUMIN HUMAN 5% 12.5 GM/250 ML VIAL IV ONE (16:25)
[2024-09-06] MEDS ORDERED: ACETAMINOPHEN 1000 MG/100 ML IV IV ONE (16:25)
--- NOTE | 2024-09-06 17:05 | History & Physical Report ---
Date of Service September 06, 2024 Assessment & Plan (1) Perforated gastric ulcer: (2) Hypertension: (3) Atrial fibrillation: Plan 58-year-old female presents with few days of nausea vomiting including vomitus of dark black liquid who presents with a perforated viscus concerning for perf orated peptic ulcer. Taken emergently to the operating room. Chronically coagulated Eliquis concerning for prehospital exertional dyspnea and chest pain. Patient has had required cardioversion in the past for atrial fibrillation # perforated peptic ulcer to the operating room with surgical management. Will initiate Protonix drip and once stable convert to twice daily bolus therapy. Will watch serial hemoglobins for blood loss especially acute blood loss anemia in the postoperative period. patient will be n.p.o. and management of advancement of diet and NG tube will be per surgical team. Patient has significant morbidity with regard to this issue and if her ulcer is too large she may require additional transfer to tertiary center per surgical team #Atrial fibrillation patient usually maintained on metoprolol but this will be continued in the perioperative period likely with intravenous bolus therapy and will need to be in a cardiac monitored unit. Her anticoagulation hopefully was reversed and will distal continue to be held until she is in a stable condition Regarding coronary disease patient will have her atorvastatin and isosorbide held she is currently also on losartan and is to be held in the perioperative period Patient is a full code. DVT prevention are SCDs at this time History of Present Illness Primary Care Provider: Meka Nagel 59-year-old female transferred from [facility] due to perforated viscus taking urgently to the operating room. This patient likely has a post perforated ulcer. Patient describes some history of exertional dyspnea and chest pain especially climbing stairs. She currently is in permanent atrial fibrillation taking Eliquis. She took her Eliquis dose this morning. She received Kcentra at [facility]. Patient was seen in the preoperative suite and she was consented for surgery by Dr. William. I personally discussed case with both Dr. William and the anesthesiologist. Allergies Allergy/AdvReac Type Severity Reaction Status Date / Time No Known Allergies Allergy Unverified 09/06/24 18:11 Home Medications Medication Instructions Recorded Confirmed Type apixaban 5 mg tablet (Eliquis) 5 mg PO BID 07/27/24 09/06/24 History atorvastatin 20 mg tablet 20 mg PO DAILY 07/27/24 09/06/24 History hydrochlorothiazide 25 mg tablet 25 mg PO DAILY 07/27/24 09/06/24 History isosorbide mononitrate 30 mg 30 mg PO DAILY 07/27/24 09/06/24 History tablet,extended release 24 hr losartan 25 mg tablet 25 mg PO DAILY 07/27/24 09/06/24 History meclizine 25 mg tablet 25 mg PO TID PRN Dizziness Or 07/27/24 09/06/24 History Vertigo metoprolol succinate 25 mg 25 mg PO DAILY 07/27/24 09/06/24 History tablet,extended release 24 hr omeprazole 20 mg capsule,delayed 20 mg PO DAILY 07/27/24 09/06/24 History release potassium chloride 10 mEq 10 meq PO DAILY 07/27/24 09/06/24 History tablet,extended release Past Med/Surg History Problem List Perforated gastric ulcer Perforated viscus Encounter for pre-operative examination DVT prophylaxis Abnormal CT scan Abdominal pain H/O tubal ligation (Acute) Tobacco abuse (Chronic) Medical History Closed left hip fracture Pyelonephritis Hypertension Atrial fibrillation Surgical History H/O tubal ligation Family History Father Hypertension Heart disease Sister Nephrolithiasis Social History Smoking Status: Former smoker Tobacco Type: Cigarettes Cigarettes Per Day: 2-10; Second Hand Exposure: Yes; Do You Dip or Chew Tobacco: No; Hx Alcohol Use: No Hx Substance Use: No Preferred Language: Slovak Communication Ability: Effective Tactical Deception Plans Officer Required: No Beliefs That Will Affect Care: None Current Living Situation: Spouse Feels Safe at Home: Yes Safety Concerns: Feels Safe At This Time Assistive Devices: None Physical Exam Physical Exam: The patient appeared well nourished and normally developed. Vital signs as documented. Head exam is normocephalic atraumatic Neck is without JVD, thyromegaly, or carotid bruits. Lungs are clear to auscultation, no focal loss of breath sounds Cardiac exam, irregular rate controlled rhythm without murmurs Abdominal exam reveals hypoactive bowel sounds diffusely tender no rebound no guarding Extremities are nonedematous and both pedal pulses are present Neurologic exam is alert and oriented, no focal loss of strength or sensation Skin is without bruises or rashes Psychologically is without concerns for anxiety or depression.. Results & Data Results & Data Vital Signs (Past 12 Hours) Reviewed labs which include a white count of 13,000 hemoglobin 9.8, BUN/creatinine 37 and 1.28, potassium is within normal limits. LFTs were unremarkable PG Care Time/CCT Total # of Minutes Spent Total Time Spent with Patient: Total time spent is greater than 50% in coordination of care (as documented) at patient's floor/unit and/or counseling patient: Coding Level of Care Code 59341 INT INP/OBS CARE MIN Diagnoses Perforated gastric ulcer K25.5 Hypertension I10 Atrial fibrillation I48.91
[2024-09-06] MEDS ORDERED: SUCCINYLCHOLINE CHLORIDE 20 MG/ML 10 ML VIAL IV ONE (17:31)
[2024-09-06] MEDS ORDERED: HYDROmorphone INJ 1 MG/ML SYRINGE IV PRN (17:57)
[2024-09-06] MEDS ORDERED: ONDANSETRON INJ 2 MG/ML 2 ML VIAL IV PRN (17:57)
[2024-09-06] MEDS ORDERED: ATROPINE SULFATE 0.1 MG/ML 10ML SYR IV PRN (17:57)
[2024-09-06] MEDS ORDERED: fentaNYL citrate PF 100 MCG/2 ML VIAL IV PRN (17:57)
[2024-09-06] MEDS ORDERED: ePHEDrine sulfate 50 MG/ML AMP IV PRN (17:57)
[2024-09-06] MEDS ORDERED: PROMETHAZINE HCL 6.25 MG in SODIUM CHLORIDE 0.9% 50 ML IV PRN (17:57)
[2024-09-06 18:05] LABS: Basophils # (auto) 0.01 K/uL (0.00-0.20); Basophils % (auto) 0.1 %; Hematocrit (blood only) 27.2 % (37.0-47.0); Immature Granulocytes # (auto) 0.06 K/uL (0.01-0.20); Immature Granulocytes % (auto) 0.4 %; Lymphocytes # (auto) 1.29 K/uL (1.20-3.40); Lymphocytes % (auto) 9.1 %; Mean Corpuscular Hemoglobin 31.4 pg (25.0-34.0); Mean Corpuscular Hgb Conc 33.1 g/dL (32.0-36.0); Mean Corpuscular Volume 94.8 fL (80.0-100.0); Mean Platelet Volume 9.3 fL (9.4-12.4); Monocytes # (auto) 0.74 K/uL (0.11-0.59); Monocytes % (auto) 5.2 %; Neutrophils # (auto) 12.07 K/uL (1.40-6.50); Neutrophils % (auto) 85.2 %; Platelet Count 405 K/uL (130-400); RDW Coefficient of Variation 13.9 % (11.5-14.5); RDW Standard Deviation 47.8 fL (36.4-46.3); Red Blood Count 2.87 M/uL (4.20-5.40); White Blood Count 14.17 K/ul (4.8-10.8)
--- NOTE | 2024-09-06 18:13 | Surgery Consultation ---
Date of Consultation September 06, 2024 Assessment & Plan (1) Perforated gastric ulcer: Suspected perforated gastric ulcer. The ulcer on imaging is quite large measuring 3.2 cm in size. Based on her prior EGD, it appears that this is similar to the findings from 2020. Does not appear that she has had any surgica l intervention for this in the past. It is unclear the size of the actual perforation. Plan for diagnostic laparoscopy, possible perforated gastric ulcer repair, possible bowel resection, possible laparotomy Risk the procedure were discussed to include but not limited to bleeding, infection, need for future more extensive surgery, damage surrounding structures, abscess, the risk of anesthesia I did discuss with the patient that due to the size of the gastric ulcer, we may not be able to definitively repair this here. If during the laparoscopy it is apparent that she will need a resection, we will drain the area and plan on transfer to tertiary facility for further management. Her repeat labs are pending, she was given Kcentra at the outside facility, and I hope that her INR will decrease Medicine on board to admit the patient postoperatively Will need PPI drip (2) Atrial fibrillation: (3) Hypertension: (4) H/O tubal ligation: History of Present Illness Attending Physician: Roly Ramesh MD History of Present Illness Patient transferred from [facility] for perforated gastric ulcer. Apparently the patient had a history of same on an EGD back in [address] Mascorro. It was discussed that the general surgeon on- call at the time Dr. Webster who recommended transfer to a tertiary facility for further evaluation. It is unclear what happened during this process she is somewhat of a poor historian. Apparently she has been on Protonix and has not had surgery for this issue. She reports that she has been having postprandial nausea and vomiting for several months along with epigastric abdominal pain. She was admitted here in July for pyelonephritis. She does have a history of A-fib and is on Eliquis. She lives in [place] and gets most of her care through the [facility]. At [facility] she had imaging that showed a perforated gastric ulcer. She had a mild leukocytosis and was hyponatremic. She did have an INR of 3.8 which is not explained by her Eliquis use. She denies any liver problems. It appears she has not had much follow-up with her ulcer as far as I can tell. Allergies Allergy/AdvReac Type Severity Reaction Status Date / Time No Known Allergies Allergy Unverified 09/06/24 18:11 Home Medications Medication Instructions Recorded Confirmed Type apixaban 5 mg tablet (Eliquis) 5 mg PO BID 07/27/24 07/27/24 History atorvastatin 20 mg tablet 20 mg PO DAILY 07/27/24 07/27/24 History hydrochlorothiazide 25 mg tablet 25 mg PO DAILY 07/27/24 07/27/24 History isosorbide mononitrate 30 mg 30 mg PO DAILY 07/27/24 07/27/24 History tablet,extended release 24 hr losartan 25 mg tablet 25 mg PO DAILY 07/27/24 07/27/24 History meclizine 25 mg tablet 25 mg PO TID PRN Dizziness Or 07/27/24 07/27/24 History Vertigo metoprolol succinate 25 mg 25 mg PO DAILY 07/27/24 07/27/24 History tablet,extended release 24 hr omeprazole 20 mg capsule,delayed 20 mg PO DAILY 07/27/24 07/27/24 History release potassium chloride 10 mEq 10 meq PO DAILY 07/27/24 History tablet,extended release Patient History Medical History Closed left hip fracture Pyelonephritis Hypertension Atrial fibrillation Surgical History H/O tubal ligation Family History Father Hypertension Heart disease Sister Nephrolithiasis Social History Smoking Status: Former smoker Tobacco Type: Cigarettes Cigarettes Per Day: 2-10; Second Hand Exposure: Yes; Do You Dip or Chew Tobacco: No; Hx Alcohol Use: Yes Alcohol type: other Hx Substance Use: No Preferred Language: [place] Citizen Communication Ability: Effective Review Manager Required: No Beliefs That Will Affect Care: None Current Living Situation: Spouse Feels Safe at Home: No Is there a partner from a previous relationship who is making you feel unsafe now?: No Assistive Devices: None Review of Systems Review of Systems: All systems reviewed & are unremarkable except as noted in HPI & below Physical Exam Constitutional: WD/WN, vitals as above + obese Respiratory: normal respiratory effort, lungs clear to auscultation Cardiovascular: RRR, no murmur, no edema Gastrointestinal (Abdomen): Inspection/Auscultation: + abdominal surgical scar (Infraumbilical midline) Percussion/Palpation: + abdomen tender (Mild epigastric tenderness to palpation) and abdomen soft; no guarding and abdomen not rigid Results & Data Vital Signs (Past 12 Hours) Vital Signs Temp Pulse Resp BP Pulse Ox O2 Del Method 09/06/24 17:56 36.8 C 99 H 22 129/88 97 Room Air Diagnostic Findings CT from outside facility personally viewed and interpreted and agree with the assessment of some small amount of pneumoperitoneum with what appears to be a gastric ulcer. Per the outside report the ulcer measures 3.2 cm in size. Is unclear the size of the actual perforation PG Care Time/CCT Total # of Minutes Spent Total Time Spent with Patient: Total time spent is greater than 50% in coordination of care (as documented) at patient's floor/unit and/or counseling patient: Coding Level of Care Code 42655 IN/OBS CONSULT LVL 4,60M Diagnoses Perforated gastric ulcer K25.5 Atrial fibrillation I48.91 Hypertension I10 H/O tubal ligation Z98.51
[2024-09-06] MEDS ORDERED: METOPROLOL TARTRATE 1 MG/ML VIAL IV PRN (18:30)
[2024-09-06 18:31] LABS: Anion Gap 12 (3-11); BUN Creatinine Ratio 32.1 (10-20); Blood Urea Nitrogen 35 mg/dl (6-23); Calcium 9.5 mg/dl (8.6-10.3); Carbon Dioxide 18 mmol/L (21-32); Chloride 96 mmol/L (98-107); Glucose 129 mg/dl (70-99(Fasting)); Potassium 4.2 mmol/L (3.5-5.1); Sodium 126 mmol/L (136-145)
[2024-09-06 18:35] LABS: INR 1.2 (0.9-1.1); Partial Thromboplastin Ratio 1.1; Partial Thromboplastin Time 30 Seconds (21-31); Prothrombin Time 12.4 Seconds (9.0-12.0)
[2024-09-06] MEDS ORDERED: VASOPRESSIN 20 UNIT/ML VIAL ONE (18:36)
[2024-09-06] MEDS ORDERED: HYDROmorphone INJ 2 MG/ML SYR/VIAL ONE (19:20)
[2024-09-06] MEDS ORDERED: ESMOLOL HCL INJ 10 MG/ML 10ML VIAL IV ONE (19:22)
[2024-09-06] MEDS ORDERED: SUGAMMADEX SODIUM 200 MG/2 ML VIAL IV ONE (19:51)
[2024-09-06] MEDS: BUPIVACAINE/EPINEPHRINE 0.5% MPF 1:200,000 30 ML VIAL ONE (20:18)
[2024-09-06] MEDS: BUPIVACAINE LIPOSOME 1.3% 266 MG/20 ML VIAL ONE (20:26)
[2024-09-06] MEDS: BUPIVACAINE 0.5 % 5 MG/1 ML MPF 30ML VIAL ONE (20:27)
--- NOTE | 2024-09-06 20:36 | Post Operative Brief Note ---
PG Immediate Post Op with CF Date of Surgery September 06, 2024 Pre & Post Diagnosis Operation Date: 09/06/24 12:40 Pre-Op Diagnosis: Perforated Viscus Post-Op Diagnosis: Large perforated gastric ulcer I identified the patient and participated in the time-out.: Yes Procedure Operation Date: 09/06/24 12:40 Actual Procedures p Laparoscopic Repair Perforated Gastric Ulcer(Not Applicable) - Jay William DO, FACS Surgeon Jay William DO, FACS Envelope Maker Dada Henley; Michelle Herrera Estimated Blood Loss 25 Findings Consistent with Post-Op Diagnosis Diagnostic laparoscopy performed, cultures of turbulent fluid sent. Liver and omentum peeled off of large perforated gastric ulcer. A small biopsy was taken of the wall of the stomach at the periphery of the ulcer. Converted to open laparotomy, modified Christiano patch repair performed. Ulcer was at the incisura. 2-0 silk sutures used to close the defect primarily with minimal tension. To ngue of omentum tied over the suture line with the tails. No leak, stomach was patent. NG tube confirmed to be in place. Drain placed. Abdomen irrigated, Exparel injected and fascia. Specimens Specimen Description: 1. Peritoneal fluid for culture and sensitivity A. Gastric ulcer wall Drains Barth Catheter and Ian-Lucas Drain Anesthesia Type General Complications none Disposition Accompanied Patient To Recovery: No Disposition: Surgical ICU
--- NOTE | 2024-09-06 20:45 | Operative Report ---
PG Post Operative Report Pre & Post Diagnosis Operation Date: 09/06/24 12:40 Pre-Op Diagnosis: Perforated Viscus Post-Op Diagnosis: Large perforated gastric ulcer I identified the patient and participated in the time-out.: Yes Procedure Operation Date: 09/06/24 12:40 Actual Procedures p diagnostic laparoscopy, open laparotomy, modified Christiano patch repair of large gastric ulcer, abdominal washout- Jay William DO, FACS Surgeon Jay William DO, FACS Tour Production Supervisor Daad Henley; Michelle Herrera Estimated Blood Loss 25 Findings Consistent with Post-Op Diagnosis Diagnostic laparoscopy performed, cultures of turbulent fluid sent. Liver and omentum peeled off of large perforated gastric ulcer. A small biopsy was taken of the wall of the stomach at the periphery of the ulcer. Converted to open laparotomy, modified Christiano patch repair performed. Ulcer was prepyloric and located at the incisura. 2-0 silk sutures used to close the defect primarily with minimal tension. Tongue of omentum tied over the suture line with the tails. No leak, stomach was patent. NG tube confirmed to be in place. Drain placed. Abdomen irrigated, Exparel injected in fascia. Specimens Peritoneal fluid cultures Gastric ulcer wall for pathology Drains NG tube 10 mm ADALI drain in right upper quadrant [place] catheter Anesthesia Type General Complications none Disposition Accompanied Patient To Recovery: No Disposition: Surgical ICU Indications 59-year-old female excepted in transfer from [facility] for perforated gastric ulcer, plan for diagnostic laparoscopy, possible repair of perforated gastric ulcer, possible bowel resection, possible laparotomy. The risks of the procedure were discussed, all questions were answered, and the patient agreed to proceed with surgery as planned. Description of Procedure The patient was properly identified, consented, and taken to the operating room where she was placed in the supine position. General endotracheal anesthesia was induced. A washington catheter, an NG tube, SCDs and a safety belt were placed. Preoperative antibiotics had been administered at the emergency department of the transferring hospital. The patient's abdomen was prepped and draped in the standard sterile fashion. Surgical timeout was performed and all parties were in agreement that this was the correct patient and procedure to be performed and we continued as planned. A incision was made to the left of the umbilicus and the Veress needle was inserted. Saline drop test confirmed entry into the peritoneum. The abdomen was insufflated with carbon dioxide which the patient tolerated without incident. The abdomen was then entered using the Optiview technique and a 5 mm trocar with a 5 mm 30 degree scope. The laparoscope was inserted and no damage from initial trocar or Veress needle placement was noted, no gross abnormalities were noted within the 4 quadrants of the abdomen. 5 mm ports were then placed in the left upper quadrant and the right upper quadrant. The patient was placed in reverse Trendelenburg position and the abdomen was explored. There was some turbulent fluid in the right upper quadrant overlying the liver. This was suctioned and collected and sent to the lab for cultures. The perforated gastric ulcer appeared to have sealed with omentum and the liver. In the area of concern the omentum and liver were gently teased off using the suction and a retractor. A large gastric ulcer was identified. It appeared to measure approximately 2.5 to 3 cm in size. The periphery of the ulcer was cleared of fibrinous exudate and adherent omentum. A small biopsy was taking of the wall of the stomach at this location. This was sent to pathology. This was located at the level of the incisura and was prepyloric. At this point I elected to convert to an open surgery as the gastric wall defect was quite l arge. An upper midline laparotomy was then performed and deepened down to the fascia. The fascia was opened and the abdomen was entered. The 5 mm ports were removed and were hemostatic. The greater curve of the stomach was grasped with a Viviana and retracted inferior laterally. Liver was retracted with a Rascon retractor. The defect was identified and again measured approximately 2.5 to 3 cm in size. The surrounding tissue was mildly inflamed but appeared to be viable. At this point I elected to perform a modified Christiano patch repair. 2-0 silk sutures were then used to repair the defect primarily in a simple interrupted fashion. The tails were left long and a tongue of omentum was then used to tie the omentum on top of the repair. The repair was examined and appeared to be airtight. The lumen of the stomach appeared to be widely patent for at least 2 to 3 cm in diameter. The NG tube was confirmed to be in the body of the stomach. I did not traverse the defect with the NG tube. There were no other abnormalities within the 4 quadrants of the abdomen. The abdomen was copiously irrigated with 2 to 3 L of saline. A 10 mm flat ADALI drain was then placed into the abdomen and exited through one of the 5 mm port sites in the left upper quadrant. This was secured in place with a 2-0 nylon suture. The drain light over the suture line and in the right upper quadrant. The fascia was then closed with a #1 looped PDS x 1. The fascia and subcutaneous tissue was injected with Exparel mixed with 0.5% Marcaine. The wound was irrigated and hemostasis confirmed. The skin was then closed with saran as well as the port sites. Sterile dressings were applied to the midline incision and 2 of the port sites. A drain dressing was placed around the drain and secured into place with tape. The patient was extubated in the operating room and taken to the ICU where she recovered without apparent incident. All sponge, instrument and needle counts were correct at the conclusion of the procedure. The patient tolerated the procedure well. The physicians assistants were present and scrubbed for the entire to the procedure. They are critical in positioning the patient, prepping and draping, driving the laparoscope, retraction and exposure, repair of the perforation, closure the fascia and incisions, and placement of the dressings. I attest to the content of the Intraoperative Record and any orders documented therein. Any exceptions are noted below.
--- NOTE | 2024-09-06 21:12 | Critical Care Consultation ---
Date of Consultation September 06, 2024 Assessment & Plan (1) Perforated gastric ulcer: (2) Atrial fibrillation: (3) Hypertension: Plan Reason Critically Ill: 59 YOF s/p open laparotomy repair of large perforated gastric ulceration. Neuro Acute pain secondary to surgical incision/procedure CAM ICU: NEGATIVE - Pain control per surgical team- tiered approach - NPO will add IV Ofirmev as well Cardiac - No acute needs, hx of: Afib, HTN - Patient with history of Afib- currently rate controlled- continue with IV metoprolol tartrate 5mg IV q6 hours as hemodynamics permit - Hold Eliquis in setting of post surgical procedure- once hemostasis is ensured by surgical team- can consider starting heparin for stroke risk prevention while Eliquis is held - Isosorbide - hold at this time follow for any chest pain or rebound HTN as this will be held while NPO - Hold ARB- if BP elevated will add Hydralazine or Enalipril Respiratory - No acute needs - ICS x10 while awake- nursing to provide abdominal splinting roll to use while using ICS, CDB, or moving around in bed - Wean oxygen as able GI - Perforated gastric ulceration , hx of GERD and gastric ulcer - NPO strict following patch to perforated ulcer- NGT to LIWS- management per surgical team - ADALI drain management per surgical team - PPI infusion in form of protonix RENAL/LYTES - Hyponatremia, likley metabolic acidosis, DELLA - hyponatremia likely secondary to n/v no solute intake- follow in am - Metabolic acidosis likely secondary to volume status following n/v and perforation - continue plasmalyte at 125ml per hour - DELLA as above - ICU electrolyte protocol - No acute needs - Barth catheter post surgical- can likely remove in AM if hemodyanmics and renal function are favorable ENDO - Elevated serum glucose without the diagnosis of DM - ICU hyperglycemic protocol- BG q6 hours HEME - [facility] anticoagulation use - ON eliquis at home INR down to 1.2 following PCC administration earlier in day - Coags in morning - HGB in morning or if hemodynamically unstable - Transfuse for evidence of acute hemorrhage or HGB <7, or symptomatic anemia ID - Perforated gastric ulcer - Continue Zosyn LINES/IV ACCESS - PIV, NGT, ADALI drain, Barth Continue use of these lines DVT PROPHYLAXIS - SCDS, chemoprophylaxis on hold until hemostasis is ensured DISPO- ICU until hemodaynmics proven stable and no evidence of bleeding or sepsis. I have personally spent 45 minutes of time in the direct management of this patient. This is a life/limb threatening event. This includes time spent evaluating patient, direct bedside care, chart review, placing orders, interpretation of diagnostic studies, discussion with consultants, patient, and family members, as well as other required patient management activities. This time is exclusive of all separately billable procedures, and separate from and in addition to any other service time. Thank you for allowing us to participate in the care of this patient. Please refer to my attending physician's documentation for any further recommendations. Supervising Physician Co-Signing Physician Notes Patient seen and examined. EMR reviewed. Discussed with critical care ONIEL. Agree with assessment plan as noted. Please refer to my progress note from 09/07/2024 for additional details History of Present Illness Reason for Consultation: gastric perforation secondary to gastric ulcer Requesting Physician: Jay William MD Attending Physician: Roly Ramesh MD History of Present Illness 59 YOF initially was accepted earlier in the afternoon from [facility] following diagnosis of perforated viscus. On arrival, she was taken urgently to the operating room. Prior to arrival at [facility] patient had her elevated INR treated with PCC, noting she is on Eliquis for afib. Post operative report reviewed- noting conversion from laparotomy to open with modified garry patch to repair large gastric ulceration- EBL estimated at 25ml. Underwent GA. Patient was brought to the ICU following surgery, extubated, with NGT in place- strict NPO, and currently not requiring vasopressors or inotropic agents. She has a Barth in, NGT, ADALI drain, request noted for PPI infusion. Pain appears controlled at this time. ICU to follow hemodynamics, clinical course, and observe for any bleeding. If patient would require further procedures or decompensate, likely would require transfer to tertiary care center. Patient reports that she had acute onset of abdominal pain located in the center of her abdomen that was sharp and burning pain starting on the evening of 09/05/24. This was associated with nausea and vomitting of dark black material. She feels that she vomited 3-4 times through the evening up until this morning. For this reason, she went to [facility] as above, also reports taking all her medications this morning to include her Eliquis. CODE: FULL Allergies Allergy/AdvReac Type Severity Reaction Status Date / Time No Known Allergies Allergy Unverified 09/06/24 18:11 Home Medications Medication Instructions Recorded Confirmed Type apixaban 5 mg tablet (Eliquis) 5 mg PO BID 07/27/24 09/06/24 History atorvastatin 20 mg tablet 20 mg PO DAILY 07/27/24 09/06/24 History hydrochlorothiazide 25 mg tablet 25 mg PO DAILY 07/27/24 09/06/24 History isosorbide mononitrate 30 mg 30 mg PO DAILY 07/27/24 09/06/24 History tablet,extended release 24 hr losartan 25 mg tablet 25 mg PO DAILY 07/27/24 09/06/24 History meclizine 25 mg tablet 25 mg PO TID PRN Dizziness Or 07/27/24 09/06/24 History Vertigo metoprolol succinate 25 mg 25 mg PO DAILY 07/27/24 09/06/24 History tablet,extended release 24 hr omeprazole 20 mg capsule,delayed 20 mg PO DAILY 07/27/24 09/06/24 History release potassium chloride 10 mEq 10 meq PO DAILY 07/27/24 09/06/24 History tablet,extended release Patient History Medical History Closed left hip fracture Pyelonephritis Hypertension Atrial fibrillation Surgical History H/O tubal ligation Family History Father Hypertension Heart disease Sister Nephrolithiasis Social History Smoking Status: Former smoker Tobacco Type: Cigarettes Cigarettes Per Day: 2-10; Second Hand Exposure: Yes; Do You Dip or Chew Tobacco: No; Hx Alcohol Use: No Hx Substance Use: No Preferred Language: Portuguese Communication Ability: Effective Motor Vehicle Compliance Analyst Required: No Beliefs That Will Affect Care: None Current Living Situation: Spouse Feels Safe at Home: Yes Assistive Devices: None Review of Systems Review of Systems: REVIEW OF SYSTEMS: Constitutional: No fever, sweats or chills Eyes: No diplopia, no worsening or blurred vision ENT: normal hearing, no trouble swallowing Respiratory: (+) dyspnea at rest or on exertion, No cough, sputum, Cardiovascular: (+) afib, No chest pain, tightness or palpitations Abdomen: (+) pain, nausea, vomiting, NO diarrhea or constipation Musculoskeletal: No joint pain, calf pain, swelling Neurologic: No weakness, numbness/tingling, or balance problems Psychiatric: No anxiety or depression Skin: No rash or itch Physical Exam Physical Exam: PHYSICAL EXAM: General: awake, alert, no apparent distress Head: Normocephalic, atraumatic ENT: PERRLA, EOMI, no pharyngeal exudate, mucous membranes dry Neuro: AAO x 3, speech clear and appropriate, strength intact bilaterally 5/5, sensation intact and equal all extremities and dermatomes, no pronator drift Chest: equal rise and fall of the chest, no accessory muscle use, Clear to auscultation, on room air, Cardiac: irregular rate and rhythm, telemetry reviewed- afib rate controlled, skin warm dry, cap refill <3 seconds, peripheral pulses +2 no JVD, no murmur, trace edema lower extremities GI: Midline incision covered with dressing- no strike through, pain surrounding incision, NGT in place to LIWS, ADALI drain in place draining serous sang draniange : Barth to gravity Extremities: Normal inspection, no peripheral edema or erythema, calfs nontender to palpation Psych: Normal mood and affect Skin: no rash or erythema Results & Data Results & Data Vital Signs (Past 12 Hours) Vital Signs Temp Pulse Resp BP Pulse Ox O2 Del Method O2 Flow Rate 09/06/24 20:55 112 H 18 131/97 98 Oxymask 3 09/06/24 20:45 36 C L 105 H 16 117/88 99 Oxymask 6 09/06/24 17:56 36.8 C 99 H 22 129/88 97 Room Air 09/06/24 17:50 Room Air Laboratory Results Abnormal lab results 09/06/24 Range/Units 17:44 WBC 14.17 H (4.8-10.8) K/ul RBC 2.87 L (4.20-5.40) M/uL Hgb 9.0 L (12.0-16.0) g/dl Hct 27.2 L (37.0-47.0) % RDW Std Deviation 47.8 H (36.4-46.3) fL Plt Count 405 H (130-400) K/uL MPV 9.3 L (9.4-12.4) fL Neut # (Auto) 12.07 H (1.40-6.50) K/uL Roberts # (Auto) 0.74 H (0.11-0.59) K/uL PT 12.4 H (9.0-12.0) Seconds INR 1.2 H (0.9-1.1) Sodium 126 L (136-145) mmol/L Chloride 96 L (98-107) mmol/L Carbon Dioxide 18 L (21-32) mmol/L Anion Gap 12 H (3-11) BUN 35 H (6-23) mg/dl BUN/Creatinine Ratio 32.1 H (10-20) Glucose 129 H (70-99(Fasting)) mg/dl Medications Administered Discontinued Medications Bupivacaine HCl (Bupivacaine 0.5 % 5 Mg/1 Ml Mpf 30ml Vial) Confirm Administered Dose 30 ml .ROUTE .STK-MED ONE Stop: 09/06/24 19:50 Last Admin: 09/06/24 20:27 Dose: 20 ml Documented By: [facility] Bupivacaine HCl/Epinephrine Bitart (Bupivacaine/Epinephrine 0.5% Mpf 1:200,000 30 Ml Vial) Confirm Administered Dose 30 ml .ROUTE .STK-MED ONE Stop: 09/06/24 16:31 Last Admin: 09/06/24 20:18 Dose: 5 ml Documented By: [place] Bupivacaine Liposome (Bupivacaine Liposome 1.3% 266 Mg/20 Ml Vial) Confirm Administered Dose 266 mg .ROUTE .[employer]-MED ONE Stop: 09/06/24 19:47 Last Admin: 09/06/24 20:26 Dose: 266 mg Documented By: [facility] [place] Level of Care Code 46510 IN/OBS CONSULT LVL 3,45M Diagnoses Perforated gastric ulcer K25.5 Atrial fibrillation I48.91 Hypertension I10
--- NOTE | 2024-09-06 21:22 | Anesthesiology Progress Note ---
Date of Service September 06, 2024 Anesthesia Post Procedure Vital Signs Vital Signs: Temp Pulse Resp BP Pulse Ox O2 Del Method O2 Flow Rate 09/06/24 21:05 36.5 C 102 H 20 157/76 H 94 Room Air 09/06/24 20:55 112 H 18 131/97 98 Oxymask 3 09/06/24 20:45 36 C L 105 H 16 117/88 99 Oxymask 6 09/06/24 17:56 36.8 C 99 H 22 129/88 97 Room Air 09/06/24 17:50 Room Air Transfer of Care Handoff Completed per policy Notes Mental Status: alert / awake / arousable and participated in evaluation Patient Amnestic to Procedure: Yes Nausea / Vomiting: adequately controlled Pain: adequately controlled Airway Patency, RR, SpO2: stable & adequate BP & HR: stable & adequate Hydration State: stable & adequate Anesthetic Complications: no major complications apparent and Pt Satisfied with anesthetic care
[2024-09-06] MEDS ORDERED: PANTOPRAZOLE BOLUS/DRIP IV STA (21:27)
[2024-09-06] MEDS ORDERED: ACETAMINOPHEN 1,000 MG/100 ML VIAL IV PRN (21:30)
[2024-09-06] MEDS ORDERED: INFLUENZA VACC TS2024-25(6m+)/PF (IIV3) 0.5mL Syr IM ONE (21:43)
[2024-09-06] MEDS: PLASMA-LYTE A 1,000 ML IV SCH (21:51)
[2024-09-06] MEDS: PANTOprazole 80 MG in DEXTROSE 5% 100 ML IV ONE (21:52)
[2024-09-06] MEDS: SODIUM CHLORIDE 0.9% 1,000 ML IV SCH (22:01)
[2024-09-06] MEDS: PIPERACILLIN/TAZOBACTAM 4.5 GM/100 ML BAG IV ONE (22:01)
[2024-09-06] MEDS: PANTOprazole 40 MG in DEXTROSE 5% MINI-B 100 ML IV SCH (22:35)
--- NOTE | 2024-09-06 23:07 | Communication Note ---
Date of Service: September 06, 2024 Peritoneal fluid culture results: Notified of peritoneal culture results that were recently obtained following surgical treatment for a perforated gastric uler: Many WBC, Moderate GPC, and Rare Yeast. A/P - Patient is not immunocompetent to best of knowledge, however possible that a malorie infection could be the cause of her perforation. We will initiate Caspofungin at this time- 70mg IV now, and then 50mg IV q24 hours - Will obtain Blood cultures x2, as well as Fungal Blood Culture - Pending sensitivities/final culture result may be able to be de-escalated to Fluconazole or other agent - Surgical Team notified as well Faustino CHRISTIANSON ([facility]-)
[2024-09-07] MEDS: ACETAMINOPHEN 1,000 MG/100 ML VIAL IV PRN (00:28)
[2024-09-07] MEDS: METOPROLOL TARTRATE 1 MG/ML VIAL IV SCH ×2 (00:30→22:04)
[2024-09-07] MEDS: ONDANSETRON INJ 2 MG/ML 2 ML VIAL IV PRN (00:55)
[2024-09-07] MEDS: CASPOFUNGIN 70 MG in SODIUM CHLORIDE 0.9% 250 ML IV ONE (01:07)
[2024-09-07] MEDS: PIPERACILLIN/TAZOBACTAM 4.5 GM/100 ML BAG IV SCH (02:21)
[2024-09-07 04:28] LABS: Hematocrit (blood only) 22.7 % (37.0-47.0); Hemoglobin 7.5 g/dl (12.0-16.0); Mean Corpuscular Hemoglobin 31.5 pg (25.0-34.0); Mean Corpuscular Volume 95.4 fL (80.0-100.0); Mean Platelet Volume 9.1 fL (9.4-12.4); Platelet Count 319 K/uL (130-400); RDW Coefficient of Variation 14.2 % (11.5-14.5); RDW Standard Deviation 48.6 fL (36.4-46.3); Red Blood Count 2.38 M/uL (4.20-5.40); White Blood Count 9.04 K/ul (4.8-10.8)
[2024-09-07 04:44] LABS: Albumin Globulin Ratio 1.3 (0.9-2); Albumin Level 3.6 gm/dl (3.4-5.0); BUN Creatinine Ratio 26.1 (10-20); Bilirubin,Total 0.5 mg/dl (0.2-1.0); Creatinine Clr Calc Pharmacy 69.9 ml/min; Globulin 2.7 gm/dl (2.5-4.0); Magnesium 1.9 mg/dl (1.7-2.4); Phosphorus 3.5 mg/dl (2.5-4.9); Potassium 4.2 mmol/L (3.5-5.1); Total Protein 6.3 gm/dl (6.0-8.3)
[2024-09-07 04:52] LABS: INR 1.1 (0.9-1.1); Prothrombin Time 11.9 Seconds (9.0-12.0)
[2024-09-07] MEDS: MAGNESIUM SULFATE / D5W 1 GM/100 ML BAG IV SCH (06:23)
[2024-09-07] MEDS: ICU ELECTROLYTE REPLACEMENT PROTOCOL SCH (07:12)
[2024-09-07] MEDS: MoRPHine SULFATE 4 MG/ML 1 ML CARP\\VIAL IV PRN (07:19)
[2024-09-07] MEDS: ICU Protocol for HYPERglycemia SCH (07:20)
--- NOTE | 2024-09-07 08:25 | Critical Care Progress Note ---
Date of Service September 07, 2024 Assessment & Plan (1) Perforated gastric ulcer: (2) Atrial fibrillation: (3) Hypertension: Plan Reason Critically Ill: 59 YOF s/p open laparotomy repair of large perforated gastric ulceration. 24-hour events: Patient transferred from [facility] with perforated viscus. She is taken to the OR and a large gastric ulcer was identified which was oversewn. She is extubated and brought to the ICU for monitoring. She is done well overnight been hemodynamically stable. Recommendations Neuro pain management per surgical service Cardiac -history of hypertension and atrial fibrillation. Currently rate controlled. N.p.o. given recent abdominal surgery and awaiting resumption of bowel function. Holding metoprolol and ISABELLA inhibitor. Would restart metoprolol as soon as feasible. Restart anticoagulation once cleared by surgery. Respiratory -incentive spirometry. Wean oxygen as tolerated. Out of bed to chair as tolerated GI - Perforated gastric ulceration , hx of GERD and gastric ulcer. Per surgery. Continue NG tube pending resumption of bowel function. Continue NPO. Protonix drip. Follow-up on biopsies RENAL/LYTES - Hyponatremia, mild. Was borderline hyponatremic last month. Potentially related to hydrochlorothiazide. Recommend discontinuation of this medication and alternative antihypertensives. -recommend removal of Barth catheter. Defer to surgery ENDO - glycemic control per protocol HEME -mild anemia today. No evidence of acute blood loss. Holding anticoagulation. ID -secondary peritonitis. Peritoneal Gram stain with many white blood cells, moderate gram-positive cocci and rare yeast. Currently on Zosyn and caspofungin. ID consultation requested given potential fungal peritonitis. Can likely de-escalate to Diflucan however will defer to ID. LINES/IV ACCESS - PIV, NGT, ADALI drain, Barth Continue use of these lines DVT PROPHYLAXIS - SCDS, chemoprophylaxis on hold until hemostasis is ensured DISPO-patient's critical care issues appear stable/resolved. She can likely transfer out of the ICU. Critical care will sign off. Feel free to contact us with questions or concerns Admission and Anticipated Discharge Date Admission Date: September 06, 2024 Subjective Patient seen and examined. EMR reviewed. Discussed with critical care ONIEL overnight as well as with bedside critical care nurse and on multidisciplinary rounds. The patient is doing well this morning. She is complaining of some incisional pain. This tends to be worse when she coughs. She is not having any chest pain or palpitations but did state that she had an episode where her A-fib was symptomatic last evening. She denies any nausea or vomiting but is irritated by the NG tube. No significant lower extremity edema. Review of Systems Review of Systems: All systems reviewed & are unremarkable except as noted in Subjective Physical Exam Constitutional: WD/WN, vitals as above Neck: trachea midline, no thyromegaly Respiratory: normal respiratory effort, lungs clear to auscultation Cardiovascular: RRR, no murmur, no edema Gastrointestinal (Abdomen): Inspection/Auscultation: + abdominal surgical incision, + abdominal surgical drain present and + hypoactive bowel sounds; abdomen not distended Musculoskeletal: Extremities: extremities normal to inspection Skin: no rashes, warm and dry Neurologic: Nonfocal exam Lymphatic: no cervical lymphadenopathy Results & Data Results & Data Vital Signs (Past 12 Hours) Vital Signs Temp Pulse Pulse Resp BP BP Pulse Ox 09/07/24 07:00 85 20 93 09/07/24 07:00 37.1 C 09/07/24 07:00 92 H 109/70 09/07/24 06:06 82 20 94 09/07/24 06:00 36.8 C 09/07/24 05:58 91 H 133/79 09/07/24 05:03 92 09/07/24 05:01 124/69 09/07/24 05:01 124/69 09/07/24 05:01 124/69 09/07/24 05:00 100 H 25 H 95 09/07/24 04:00 127/73 09/07/24 04:00 127/73 09/07/24 04:00 79 18 95 09/07/24 03:00 81 13 96 09/07/24 03:00 130/86 09/07/24 03:00 130/86 09/07/24 02:03 74 14 95 09/07/24 02:00 134/81 09/07/24 02:00 134/81 09/07/24 02:00 134/81 09/07/24 01:12 79 15 95 09/07/24 01:06 36.7 C 09/07/24 01:00 128/76 09/07/24 01:00 74 09/07/24 00:57 79 26 H 95 09/07/24 00:45 79 128/76 03/04/25 00:30 87 13 95 09/07/24 00:30 88 133/96 09/07/24 00:00 96 H 14 133/96 94 09/06/24 23:30 88 17 94 09/06/24 23:03 90 17 133/78 95 09/06/24 22:57 88 13 94 09/06/24 22:39 88 23 137/82 95 09/06/24 22:12 89 22 94 09/06/24 22:03 95 H 17 142/73 H 94 09/06/24 21:54 94 H 27 H 94 09/06/24 21:45 120/71 09/06/24 21:45 89 25 H 120/71 93 09/06/24 21:36 95 H 18 94 09/06/24 21:32 95 H 09/06/24 21:29 36.4 C L 09/06/24 21:05 36.5 C 102 H 20 157/76 H 94 09/06/24 20:55 112 H 18 131/97 98 09/06/24 20:45 36 C L 105 H 16 117/88 99 O2 Del Method O2 Flow Rate 09/07/24 07:00 Room Air 09/07/24 07:00 09/07/24 07:00 09/07/24 06:06 09/07/24 06:00 09/07/24 05:58 09/07/24 05:03 09/07/24 05:01 09/07/24 05:01 09/07/24 05:01 09/07/24 05:00 09/07/24 04:00 09/07/24 04:00 09/07/24 04:00 09/07/24 03:00 09/07/24 03:00 09/07/24 03:00 09/07/24 02:03 09/07/24 02:00 09/07/24 02:00 09/07/24 02:00 09/07/24 01:12 09/07/24 01:06 09/07/24 01:00 09/07/24 01:00 09/07/24 00:57 09/07/24 00:45 09/07/24 00:30 09/07/24 00:30 09/07/24 00:00 09/06/24 23:30 09/06/24 23:03 09/06/24 22:57 09/06/24 22:39 09/06/24 22:12 09/06/24 22:03 09/06/24 21:54 09/06/24 21:45 09/06/24 21:45 09/06/24 21:36 09/06/24 21:32 09/06/24 21:29 09/06/24 21:05 Room Air 09/06/24 20:55 Oxymask 3 09/06/24 20:45 Oxymask 6 Critical Care Results & Data Vital Signs (Past 12 Hours) Vital Signs Temp Pulse Pulse Resp BP BP Pulse Ox 09/07/24 07:00 85 20 93 09/07/24 07:00 37.1 C 09/07/24 07:00 92 H 109/70 09/07/24 06:06 82 20 94 09/07/24 06:00 36.8 C 09/07/24 05:58 91 H 133/79 09/07/24 05:03 92 09/07/24 05:01 124/69 09/07/24 05:01 124/69 09/07/24 05:01 124/69 09/07/24 05:00 100 H 25 H 95 09/07/24 04:00 127/73 09/07/24 04:00 127/73 09/07/24 04:00 79 18 95 09/07/24 03:00 81 13 96 09/07/24 03:00 130/86 09/07/24 03:00 130/86 09/07/24 02:03 74 14 95 09/07/24 02:00 134/81 09/07/24 02:00 134/81 09/07/24 02:00 134/81 09/07/24 01:12 79 15 95 09/07/24 01:06 36.7 C 09/07/24 01:00 128/76 09/07/24 01:00 74 09/07/24 00:57 79 26 H 95 09/07/24 00:45 79 128/76 09/07/24 00:30 87 13 95 09/07/24 00:30 88 133/96 09/07/24 00:00 96 H 14 133/96 94 09/06/24 23:30 88 17 94 09/06/24 23:03 90 17 133/78 95 09/06/24 22:57 88 13 94 09/06/24 22:39 88 23 137/82 95 09/06/24 22:12 89 22 94 09/06/24 22:03 95 H 17 142/73 H 94 09/06/24 21:54 94 H 27 H 94 09/06/24 21:45 120/71 09/06/24 21:45 89 25 H 120/71 93 09/06/24 21:36 95 H 18 94 09/06/24 21:32 95 H 09/06/24 21:29 36.4 C L 09/06/24 21:05 36.5 C 102 H 20 157/76 H 94 09/06/24 20:55 112 H 18 131/97 98 09/06/24 20:45 36 C L 105 H 16 117/88 99 O2 Del Method O2 Flow Rate 09/07/24 07:00 Room Air 09/07/24 07:00 09/07/24 07:00 09/07/24 06:06 09/07/24 06:00 09/07/24 05:58 09/07/24 05:03 09/07/24 05:01 09/07/24 05:01 09/07/24 05:01 09/07/24 05:00 09/07/24 04:00 09/07/24 04:00 09/07/24 04:00 09/07/24 03:00 09/07/24 03:00 09/07/24 03:00 09/07/24 02:03 09/07/24 02:00 09/07/24 02:00 09/07/24 02:00 09/07/24 01:12 09/07/24 01:06 09/07/24 01:00 09/07/24 01:00 09/07/24 00:57 09/07/24 00:45 09/07/24 00:30 09/07/24 00:30 09/07/24 00:00 09/06/24 23:30 09/06/24 23:03 09/06/24 22:57 09/06/24 22:39 09/06/24 22:12 09/06/24 22:03 09/06/24 21:54 09/06/24 21:45 09/06/24 21:45 09/06/24 21:36 09/06/24 21:32 09/06/24 21:29 09/06/24 21:05 Room Air 09/06/24 20:55 Oxymask 3 09/06/24 20:45 Oxymask 6 Lab & Micro Results (Past 24 Hours) RBC 2.38 M/uL (4.20-5.40) L 09/07/24 WBC 9.04 K/ul (4.8-10.8) 09/07/24 Hgb 8.0 g/dl (12.0-16.0) L 09/07/24 Hct 22.7 % (37.0-47.0) L 09/07/24 MCV 95.4 fL (80.0-100.0) 09/07/24 MCH 31.5 pg (25.0-34.0) 09/07/24 MCHC 33.0 g/dL (32.0-36.0) 09/07/24 RDW Standard Deviation 48.6 fL (36.4-46.3) H 09/07/24 RDW Coefficient of Variation 14.2 % (11.5-14.5) 09/07/24 Plt Count 319 K/uL (130-400) 09/07/24 MPV 9.1 fL (9.4-12.4) L 09/07/24 Neutrophils (%) (Auto) 85.2 % 09/06/24 Lymphocytes (%) (Auto) 9.1 % 09/06/24 Monocytes # (Auto) 0.74 K/uL (0.11-0.59) H 09/06/24 Eosinophils # (Auto) 0.00 K/uL (0.00-0.50) 09/06/24 Immature Granulocyte % (Auto) 0.4 % 09/06/24 Neutrophils # (Auto) 12.07 K/uL (1.40-6.50) H 09/06/24 Lymphocytes # (Auto) 1.29 K/uL (1.20-3.40) 09/06/24 Monocytes # (Auto) 0.74 K/uL (0.11-0.59) H 09/06/24 Eosinophils # (Auto) 0.00 K/uL (0.00-0.50) 09/06/24 Basophils # (Auto) 0.01 K/uL (0.00-0.20) 09/06/24 Immature Granulocyte # (Auto) 0.06 K/uL (0.01-0.20) 5 Na 127 mmol/L (136-145) L 09/07/24 K 4.2 mmol/L (3.5-5.1) 09/07/24 Cl 98 mmol/L (98-107) 09/07/24 CO2 21 mmol/L (21-32) 09/07/24 Anion Gap 8 (3-11) 09/07/24 BUN 23 mg/dl (6-23) 09/07/24 Creatinine 0.88 mg/dl (0.6-1.2) 09/07/24 BUN/Creatinine Ratio 26.1 (10-20) H 09/07/24 Glu 130 mg/dl (70-99(Fasting)) H 09/07/24 Ca 9.0 mg/dl (8.6-10.3) 09/07/24 Phosphorus Level 3.5 mg/dl (2.5-4.9) 09/07/24 Total Bilirubin 0.5 mg/dl (0.2-1.0) 09/07/24 AST 40 U/L (13-39) H 09/07/24 ALT 33 U/L (7-52) 09/07/24 Alkaline Phosphatase 46 U/L (34-104) 09/07/24 TP 6.3 gm/dl (6.0-8.3) 09/07/24 Albumin 3.6 gm/dl (3.4-5.0) 09/07/24 Globulin 2.7 gm/dl (2.5-4.0) 09/07/24 Albumin/Globulin Ratio 1.3 (0.9-2) 09/07/24 Mg 1.9 mg/dl (1.7-2.4) 09/07/24 04:06 Calcium Level 9.0 mg/dl (8.6-10.3) 09/07/24 04:06 Prothromb Time International Ratio 1.1 (0.9-1.1) 09/07/24 04:0 6 Microbiology 09/06/24 18:55 Gram Stain - Final Peritoneal Fluid I & O Totals 24 Hours 09/06/24 09/07/24 09/08/24 06:59 06:59 06:59 Intake Total 1432.416 / 1432.416 292.666 / 292.666 Output Total 1175 / 1175 Balance 257.416 / 257.416 292.666 / 292.666 Cumulative 09/06/24 12:40 thru 09/07/24 08:15 Intake Total 1725.082 Output Total 1175 Balance 550.082 RT Ventilator Mngmt (Last Documented) Ventilator Ordered Settings Respiratory Rate 20 09/07/24 07:00 Ventilator - PT Measurements Respiratory Rate 20 Coding Level of Care Code 29299 SUB INP/OBS CARE 3/50MIN Diagnoses Perforated gastric ulcer K25.5 Atrial fibrillation I48.91 Hypertension I10
--- NOTE | 2024-09-07 08:47 | Surgery Progress Note ---
Date of Service September 07, 2024 Assessment & Plan (1) Perforated gastric ulcer: Plan: POD#1 dx laparoscopy converted to laparotomy and repair of perforated large gastric ulcer w/ garry patch WBC 9 (14), Hbg 8. Vitals stable NGT in place, to remain to LIWS and strict NPO PPI gtt ordered ADALI drain serosang., to remain in place until after leak test Barth in place, can consider removal later today when more ambulatory ID consulted, on caspo & tadeo currently Recommend OOB ambulating and pulmonary toilet May consider hep gtt vs lovenox tomorrow if Hbg remains stable Will consider UGI towards end of week for leak test Okay for downgrade when okay with medicine Admission and Anticipated Discharge Date Admission Date: September 06, 2024 Supervising Physician Co-Signing Physician Notes Patient seen and examined, labs reviewed, agree with above. POD #1 laparoscopy converted to laparotomy with repair of large gastric perforation. Overall doing well, feels better than prior to surgery, sore at incision site. On exam she is afebrile stable vitals, her abdomen is soft, probably tender to palpation. Dressing in place without strikethrough. ADALI serosanguineous. NG tube in place. WBC normal, hemoglobin 8. Continue NG tube and ADALI drain. Will likely get upper GI on Friday. Will need endoscopy as an outpatient. Continue antibiotics and antifungals. ID consult pending. If any major issues and it appears the patient will need a partial gastrectomy, would recommend transfer to a tertiary facility. Subjective Patient reports some abdominal soreness. Had some coughing overnight. Otherwise no nausea. No other complaints. Physical Exam Physical Exam: awake/alert, no distress Gastrointestinal (Abdomen): Inspection/Auscultation: + abdominal surgical incision (surgical dressings c/d/i) and + abdominal surgical drain present (serosang) Percussion/Palpation: + abdomen tender and abdomen soft ngt in place Results & Data Vital Signs (Past 12 Hours) Vital Signs Temp Pulse Pulse Resp BP BP Pulse Ox 09/07/24 07:00 85 20 93 09/07/24 07:00 98.8 F 09/07/24 07:00 92 H 109/70 09/07/24 06:06 82 20 94 09/07/24 06:00 98.2 F 09/07/24 05:58 91 H 133/79 09/07/24 05:03 92 09/07/24 05:01 124/69 09/07/24 05:01 124/69 09/07/24 05:01 124/69 09/07/24 05:00 100 H 25 H 95 09/07/24 04:00 127/73 09/07/24 04:00 127/73 09/07/24 04:00 79 18 95 09/07/24 03:00 81 13 96 09/07/24 03:00 130/86 09/07/24 03:00 130/86 09/07/24 02:03 74 14 95 09/07/24 02:00 134/81 09/07/24 02:00 134/81 09/07/24 02:00 134/81 09/07/24 01:12 79 15 95 09/07/24 01:06 98.1 F 09/07/24 01:00 128/76 09/07/24 01:00 74 09/07/24 00:57 79 26 H 95 09/07/24 00:45 79 128/76 09/07/24 00:30 87 13 95 09/07/24 00:30 88 133/96 09/07/24 00:00 96 H 14 133/96 94 09/06/24 23:30 88 17 94 09/06/24 23:03 90 17 133/78 95 09/06/24 22:57 88 13 94 09/06/24 22:39 88 23 137/82 95 09/06/24 22:12 89 22 94 09/06/24 22:03 95 H 17 142/73 H 94 09/06/24 21:54 94 H 27 H 94 09/06/24 21:45 120/71 09/06/24 21:45 89 25 H 120/71 93 09/06/24 21:36 95 H 18 94 09/06/24 21:32 95 H 09/06/24 21:29 97.5 F L 09/06/24 21:05 97.7 F 102 H 20 157/76 H 94 09/06/24 20:55 112 H 18 131/97 98 09/06/24 20:45 96.8 F L 105 H 16 117/88 99 O2 Del Method O2 Flow Rate 09/07/24 07:00 Room Air 09/07/24 07:00 09/07/24 07:00 09/07/24 06:06 09/07/24 06:00 09/07/24 05:58 09/07/24 05:03 09/07/24 05:01 09/07/24 05:01 09/07/24 05:01 09/07/24 05:00 09/07/24 04:00 09/07/24 04:00 09/07/24 04:00 09/07/24 03:00 09/07/24 03:00 09/07/24 03:00 09/07/24 02:03 09/07/24 02:00 09/07/24 02:00 09/07/24 02:00 09/07/24 01:12 09/07/24 01:06 09/07/24 01:00 09/07/24 01:00 09/07/24 00:57 09/07/24 00:45 09/07/24 00:30 09/07/24 00:30 09/07/24 00:00 09/06/24 23:30 09/06/24 23:03 09/06/24 22:57 09/06/24 22:39 09/06/24 22:12 09/06/24 22:03 09/06/24 21:54 09/06/24 21:45 09/06/24 21:45 09/06/24 21:36 09/06/24 21:32 09/06/24 21:29 09/06/24 21:05 Room Air 09/06/24 20:55 Oxymask 3 09/06/24 20:45 Oxymask 6 PG Care Time/CCT Total # of Minutes Spent Total Time Spent with Patient: Total time spent is greater than 50% in coordination of care (as documented) at patient's floor/unit and/or counseling patient: Coding Level of Care Code 37736 Post Operative Follow-Up Diagnoses Perforated gastric ulcer K25.5
--- NOTE | 2024-09-07 09:06 | Infectious Disease Consult ---
Date of Consultation September 07, 2024 Assessment & Plan (1) Perforated gastric ulcer: (2) Peritonitis: Plan Problems: #Perforated gastric ulcer s/p repair (09/07/24) #Secondary peritonitis Micro: 09/07 Fungal BCx: pending 09/07 BCx x2: pending 09/06 Peritoneal fluid cx: pending. GS--GPCs, rare yeast Abx: Zosyn 09/06 - present Caspofungin 09/07 - present 59 yo F with history of afib on Eliquis, perforated gastric ulcer (2019) who presented on 09/06/24 as a transfer from [facility] with perforated gastric ulcer s/p diagnostic laparoscopy, converted to open laparotomy, and modified Christiano patch repair of large gastric ulcer, abdominal washout. With secondary peritonitis, on Zosyn and caspofungin. Recommendations: - Follow-up peritoneal fluid culture - Can continue Zosyn and caspofungin for now, pending above culture Will continue to follow Consultation Information Consultation was provided via telemedicine using two-way real-time interactive telecommunication between the patient and the telemedicine provider. For the duration of the visit, the provider was performing the assessment from a different facility than the patient. This includesuse of bluetooth stethoscope forauscultationperformed by the telepresenter that the telemedicine provider can hear if described in the physical exam. House Admin contact information: Please call [facility] [phone]. (Phone Number For Physician Use Only) After establishing a telemedicine visit, patient was: Patient was verified with two unique identifiers, Patient/authorized rep acknowledged consent and understanding and Gave permission to continue telehealth session Time Spent with Patient: Initial => 40 min History of Present Illness Reason for Consultation: Peritonitis Attending Physician: Roly Ramesh MD History of Present Illness 59 yo F with history of afib on Eliquis, perforated gastric ulcer (2019) who presented on 09/06/24 as a transfer from [facility] with perforated gastric ulcer. She had reported acute onset of abdominal pain starting 09/05/24 evening, with associated nausea, vomiting of dark black material. On admission, WBC 14.17. Pt was taken to the OR on 09/06 for diagnostic laparoscopy, converted to open laparotomy, and modified Christiano patch repair of large gastric ulcer, abdominal washout. Per operative note, turbulent fluid in RUQ overlying the liver was sent for culture. She was admitted to the ICU post- operatively and started on Zosyn. Peritoneal fluid with gram stain showing moderate GPCs, rare yeast. Caspofungin was added. Allergies Allergy/AdvReac Type Severity Reaction Status Date / Time No Known Allergies Allergy Unverified 09/06/24 18:11 Home Medications Medication Instructions Recorded Confirmed Type apixaban 5 mg tablet (Eliquis) 5 mg PO BID 07/27/24 09/06/24 History atorvastatin 20 mg tablet 20 mg PO DAILY 07/27/24 09/06/24 History hydrochlorothiazide 25 mg tablet 25 mg PO DAILY 07/27/24 09/06/24 History isosorbide mononitrate 30 mg 30 mg PO DAILY 07/27/24 09/06/24 History tablet,extended release 24 hr losartan 25 mg tablet 25 mg PO DAILY 07/27/24 09/06/24 History meclizine 25 mg tablet 25 mg PO TID PRN Dizziness Or 07/27/24 09/06/24 History Vertigo metoprolol succinate 25 mg 25 mg PO DAILY 07/27/24 09/06/24 History tablet,extended release 24 hr omeprazole 20 mg capsule,delayed 20 mg PO DAILY 07/27/24 09/06/24 History release potassium chloride 10 mEq 10 meq PO DAILY 07/27/24 09/06/24 History tablet,extended release Patient History Medical History Closed left hip fracture Pyelonephritis Hypertension Atrial fibrillation Surgical History H/O tubal ligation Family History Father Hypertension Heart disease Sister Nephrolithiasis Social History Smoking Status: Former smoker Tobacco Type: Cigarettes Cigarettes Per Day: 2-10; Second Hand Exposure: Yes; Do You Dip or Chew Tobacco: No; Hx Alcohol Use: No Hx Substance Use: No Preferred Language: Lebanese Communication Ability: Effective Store Merchandiser Required: No Beliefs That Will Affect Care: None Current Living Situation: Spouse Feels Safe at Home: Yes Assistive Devices: None Review of System A complete ROS was performed and is negative except as mentioned in the HPI. Physical Exam Physical Exam: GEN: laying in bed in NAD. RESP: No increased work of breathing ABD: Soft, dressing in place without strikethrough, abdominal drain with serosanguineous fluid NEURO: Alert and oriented. Answers all questions appropriately. Speech not slurred. PSYCH: Normal mood, affect appropriate. Results & Data Vital Signs (Past 12 Hours) Vital Signs Temp Pulse Pulse Resp BP BP Pulse Ox 09/07/24 08:00 09/07/24 07:00 85 20 93 09/07/24 07:00 37.1 C 09/07/24 07:00 92 H 109/70 09/07/24 06:06 82 20 94 09/07/24 06:00 36.8 C 09/07/24 05:58 91 H 133/79 09/07/24 05:03 92 09/07/24 05:01 124/69 09/07/24 05:01 124/69 09/07/24 05:01 124/69 09/07/24 05:00 100 H 25 H 95 09/07/24 04:00 127/73 09/07/24 04:00 127/73 09/07/24 04:00 79 18 95 09/07/24 03:00 81 13 96 09/07/24 03:00 130/86 09/07/24 03:00 130/86 09/07/24 02:03 74 14 95 09/07/24 02:00 134/81 09/07/24 02:00 134/81 09/07/24 02:00 134/81 09/07/24 01:12 79 15 95 09/07/24 01:06 36.7 C 09/07/24 01:00 128/76 09/07/24 01:00 74 09/07/24 00:57 79 26 H 95 09/07/24 00:45 79 128/76 09/07/24 00:30 87 13 95 09/07/24 00:30 88 133/96 09/07/24 00:00 96 H 14 133/96 94 09/06/24 23:30 88 17 94 09/06/24 23:03 90 17 133/78 95 09/06/24 22:57 88 13 94 09/06/24 22:39 88 23 137/82 95 09/06/24 22:12 89 22 94 09/06/24 22:03 95 H 17 142/73 H 94 09/06/24 21:54 94 H 27 H 94 09/06/24 21:45 120/71 09/06/24 21:45 89 25 H 120/71 93 09/06/24 21:36 95 H 18 94 09/06/24 21:32 95 H 09/06/24 21:29 36.4 C L 09/06/24 21:05 36.5 C 102 H 20 157/76 H 94 09/06/24 20:55 112 H 18 131/97 98 O2 Del Method O2 Flow Rate 09/07/24 08:00 Room Air 09/07/24 07:00 Room Air 09/07/24 07:00 09/07/24 07:00 09/07/24 06:06 09/07/24 06:00 09/07/24 05:58 09/07/24 05:03 09/07/24 05:01 09/07/24 05:01 09/07/24 05:01 09/07/24 05:00 09/07/24 04:00 09/07/24 04:00 09/07/24 04:00 09/07/24 03:00 09/07/24 03:00 09/07/24 03:00 09/07/24 02:03 09/07/24 02:00 09/07/24 02:00 09/07/24 02:00 09/07/24 01:12 09/07/24 01:06 09/07/24 01:00 09/07/24 01:00 09/07/24 00:57 09/07/24 00:45 09/07/24 00:30 09/07/24 00:30 09/07/24 00:00 09/06/24 23:30 09/06/24 23:03 09/06/24 22:57 09/06/24 22:39 09/06/24 22:12 09/06/24 22:03 09/06/24 21:54 09/06/24 21:45 09/06/24 21:45 09/06/24 21:36 09/06/24 21:32 09/06/24 21:29 09/06/24 21:05 Room Air 09/06/24 20:55 Oxymask 3 Laboratory Results Short CBC 09/06/24 09/07/24 09/07/24 Range/Units 17:44 04:06 05:44 WBC 14.17 H 9.04 (4.8-10.8) K/ul Hgb 9.0 L 7.5 L 8.0 L (12.0-16.0) g/dl Hct 27.2 L 22.7 L (37.0-47.0) % Plt Count 405 H 319 (130-400) K/uL BMP 09/06/24 09/07/24 17:44 04:06 Sodium 126 L 127 L Potassium 4.2 4.2 Chloride 96 L 98 Carbon Dioxide 18 L 21 BUN 35 H 23 Creatinine 1.09 0.88 Glucose 129 H 130 H Calcium 9.5 9.0 Liver Function 09/07/24 Range/Units 04:06 Total Bilirubin 0.5 (0.2-1.0) mg/dl AST 40 H (13-39) U/L ALT 33 (7-52) U/L Alkaline Phosphatase 46 (34-104) U/L Albumin 3.6 (3.4-5.0) gm/dl Medications Administered Current Inpatient Medications Piperacillin Sod/Tazobactam Sod (Zosyn) 4.5 gm in 100 mls @ 25 mls/hr IV Q8H [facility]; Protocol Stop: 09/17/24 02:59 Last Infusion: 09/07/24 07:13 Dose: Infused Pantoprazole Sodium 40 mg/ (Dextrose) 100 mls @ 20 mls/hr IV Q5H [facility] Stop: 10/06/24 21:29 Last Admin: 09/07/24 07:19 Dose: 8 mg/hr, 20 mls/hr Acetaminophen (Ofirmev) 1,000 mg in 100 mls @ 400 mls/hr IV Q8H PRN PRN Reason: Mild-Mod Pain (Scale 1-6) Stop: 09/09/24 21:26 Last Infusion: 09/07/24 01:08 Dose: Infused Parenteral Electrolytes (Plasma-Lyte A Ph 7.4) 1,000 mls @ 100 mls/hr IV .Q10H [facility] Stop: 09/07/24 21:29 Last Admin: 09/07/24 04:52 Dose: 125 mls/hr Caspofungin 50 mg/ Sodium (Chloride) 260 mls @ 250 mls/hr IV Q24H [facility]; Protocol Stop: 09/17/24 21:59 Magnesium Sulfate/Dextrose (Magnesium Sulfate / D5w) 1 gm in 100 mls @ 50 mls /hr IV Q2H [facility] Stop: 09/07/24 09:59 Last Admin: 09/07/24 08:15 Dose: 50 mls/hr Metoprolol Tartrate (Metoprolol Tartrate 1 Mg/Ml Vial) 5 mg IV Q4 PRN PRN Reason: sbp > 185, dbp >95, HR >120 Stop: 10/06/24 18:29 Metoprolol Tartrate (Metoprolol Tartrate 1 Mg/Ml Vial) 5 mg IV Q6 [facility] Stop: 10/07/24 00:00 Last Admin: 09/07/24 05:58 Dose: 5 mg Miscellaneous (Icu Electrolyte Replacement Protocol) 1 each N/A BID@06,18 [facility]; Protocol Stop: 09/14/24 05:59 Last Admin: 09/07/24 07:12 Dose: Not Given Miscellaneous (Icu Protocol For Hyperglycemia) 1 each N/A ACHS [facility] Stop: 09/09/24 07:29 Last Admin: 09/07/24 07:20 Dose: Not Given Morphine Sulfate (Morphine Sulfate 4 Mg/Ml 1 Ml Carp\Vial) 3 mg IV Q3H PRN PRN Reason: Severe Pain (Scale 7, 8, 9,10) Stop: 09/20/24 21:26 Last Admin: 09/07/24 07:19 Dose: 3 mg Ondansetron HCl (Ondansetron Inj 2 Mg/Ml 2 Ml Vial) 4 mg IV Q6H PRN PRN Reason: Nausea And Vomiting Stop: 10/06/24 21:26 Last Admin: 09/07/24 07:19 Dose: 4 mg
--- NOTE | 2024-09-07 17:54 | Hospitalist Progress Note ---
Date of Service September 07, 2024 Assessment & Plan (1) Perforated gastric ulcer: (2) Hypertension: (3) Atrial fibrillation: Plan 58-year-old female presents with few days of nausea vomiting including vomitus of dark black liquid who presents with a perforated viscus concerning for perf orated peptic ulcer. Taken emergently to the operating room for evacuation of soilage of her peritoneum and oversew of peptic ulcer. Patient on Zosyn and function to cover gram-negative's anaerobic send fungus as preliminary fluid showed possible yeast.. Chronically coagulated Eliquis concerning for prehospital exertional dyspnea and chest pain. Anticoagulation is held and will be restarted at appropriate time postoperatively patient has had required cardioversion in the past for atrial fibrillation # perforated peptic ulcer to the operating room with surgical management. Will initiate Protonix drip consider this a treatment for peptic ulcer will treat for 72 hours and then convert to twice daily bolus therapy. Hemoglobin have been stable postoperatively but still worrisome for acute blood loss anemia . patient will be n.p.o. and management of advancement of diet and NG tube will be per surgical team. Patient has significant morbidity with regard to this issue and if her ulcer is too large she may require additional transfer to tertiary center per surgical team #Infectious disease patient maintained on Zosyn caspofungin was started due to concern for yeast on peritoneal fluid culture #Atrial fibrillation/hypertension blood pressure slightly elevated along with heart rate will increase her metoprolol to form 5 mg every 4 hours with as needed backup bleeding Eliquis at this time Regarding coronary disease he is on metoprolol holding atorvastatin isosorbide and losartan Patient is a full code. DVT prevention are SCDs at this time Admission and Anticipated Discharge Date Admission Date: September 06, 2024 Subjective Patient was seen postoperative. She is awake alert appropriate. NG tube in place with a drain in her abdomen. She is having pain in her abdomen especially with coughing and she was having a nonproductive cough. Physical Exam Physical Exam: Her card exam is regular but rate controlled her lungs are decreased breath sounds at the bases her abdomen had no bowel sounds present Extremities without edema Results & Data Results & Data Vital Signs (Past 12 Hours) Vital Signs Temp Pulse Pulse Resp BP BP BP 09/07/24 17:46 99 H 09/07/24 14:40 09/07/24 14:24 98.1 F 94 H 18 125/69 09/07/24 12:12 92 H 126/63 09/07/24 11:57 110 H 134/75 09/07/24 11:52 97.9 F 111 H 20 134/75 09/07/24 08:53 84 09/07/24 08:00 09/07/24 07:00 85 20 09/07/24 07:00 98.8 F 09/07/24 07:00 92 H 109/70 09/07/24 06:06 82 20 09/07/24 06:00 98.2 F 09/07/24 05:58 91 H 133/79 Pulse Ox O2 Del Method 09/07/24 17:46 09/07/24 14:40 Room Air 09/07/24 14:24 94 Room Air 09/07/24 12:12 09/07/24 11:57 09/07/24 11:52 96 Room Air 09/07/24 08:53 09/07/24 08:00 Room Air 09/07/24 07:00 93 Room Air 09/07/24 07:00 09/07/24 07:00 09/07/24 06:06 94 09/07/24 06:00 09/07/24 05:58 Laboratory Results Reviewed CBC reviewed chemistry Reviewed infectious disease consultation Discussed case with intensive care reviewed all orders and meds for throughout the ICU PG Care Time/CCT Total # of Minutes Spent Total Time Spent with Patient: Total time spent is greater than 50% in coordination of care (as documented) at patient's floor/unit and/or counseling patient: Coding Level of Care Code 70741 SUB INP/OBS CARE 3/50MIN Diagnoses Perforated gastric ulcer K25.5 Hypertension I10 Atrial fibrillation I48.91
[2024-09-08] MEDS: CASPOFUNGIN 50 MG in SODIUM CHLORIDE 0.9% 250 ML IV SCH (00:17)
[2024-09-08] MEDS ORDERED: MoRPHine SULFATE 4 MG/ML 1 ML CARP\\VIAL IV PRN (08:03)
--- NOTE | 2024-09-08 08:03 | Surgery Progress Note ---
Date of Service September 08, 2024 Assessment & Plan (1) Perforated gastric ulcer: Plan: POD#2 dx laparoscopy converted to laparotomy and repair of perforated large gastric ulcer w/ garry patch Labs this AM are pending. Vitals are stable NGT in place, to remain to LIWS and strict NPO Remains on PPI gtt. On Caspo and Zosyn for ID while cultures pending ADALI drain serosang., to remain in place until after leak test Recommend ongoing OOB ambulating and pulmonary toilet May consider hep gtt vs lovenox today if Hbg remains stable Surgical wound is c/d/i, may start daily dressing changes Will consider UGI towards end of week for leak test Admission and Anticipated Discharge Date Admission Date: September 06, 2024 Supervising Physician Co-Signing Physician Notes Patient seen and examined, labs reviewed, agree with above. POD #2 laparoscopic converted to laparotomy with repair of large gastric perforation. Overall doing well, feels better than prior to surgery, sore at incision site. On exam she is afebrile stable vitals, her abdomen is soft, probably tender to palpation. Dressing in place without strikethrough, incision without infection. ADALI serosanguineous. NG tube in place. WBC normal, hemoglobin 7.2, stable. Continue NG tube and ADALI drain. Will likely get upper GI or Friday. Will need endoscopy as an outpatient. Continue antibiotics and antifungals. Subjective Patient feeling about the same as yesterday. Some abdominal discomfort/soreness, not worsening and is tolerable on current pain regimen. She is voiding. She says she has been ambulating to/from restroom and been in the chair. Denies n/v. No flatus/BM yet. Physical Exam Physical Exam: awake/alert, no distress Respiratory: normal respiratory effort Gastrointestinal (Abdomen): Inspection/Auscultation: + abdominal surgical incision (midline saran c/d/i without signs of infection) and + abdominal surgical drain present (serous) Percussion/Palpation: + abdomen tender and abdomen soft ngt in place Results & Data Vital Signs (Past 12 Hours) Vital Signs Temp Pulse Pulse Resp BP BP Pulse Ox 09/08/24 07:17 97.9 F 88 19 111/68 92 09/08/24 05:52 79 127/83 09/08/24 05:33 90 123/68 09/08/24 01:48 75 118/80 09/08/24 01:33 87 113/66 09/07/24 22:47 88 131/78 09/07/24 22:45 88 131/78 09/07/24 22:04 90 135/74 09/07/24 21:57 94 H 09/07/24 20:00 O2 Del Method 09/08/24 07:17 Room Air 09/08/24 05:52 09/08/24 05:33 09/08/24 01:48 09/08/24 01:33 09/07/24 22:47 09/07/24 22:45 09/07/24 22:04 09/07/24 21:57 09/07/24 20:00 Room Air PG Care Time/CCT Total # of Minutes Spent Total Time Spent with Patient: Total time spent is greater than 50% in coordination of care (as documented) at patient's floor/unit and/or counseling patient: Coding Level of Care Code 40935 Post Operative Follow-Up Diagnoses Perforated gastric ulcer K25.5
[2024-09-08 08:12] LABS: Hematocrit (blood only) 23.8 % (37.0-47.0); Hemoglobin 7.9 g/dl (12.0-16.0); Mean Corpuscular Hemoglobin 31.6 pg (25.0-34.0); Mean Corpuscular Hgb Conc 33.2 g/dL (32.0-36.0); Mean Corpuscular Volume 95.2 fL (80.0-100.0); Mean Platelet Volume 9.1 fL (9.4-12.4); Platelet Count 363 K/uL (130-400); RDW Coefficient of Variation 13.9 % (11.5-14.5); RDW Standard Deviation 48.1 fL (36.4-46.3); White Blood Count 8.21 K/ul (4.8-10.8)
[2024-09-08 08:32] LABS: Albumin Globulin Ratio 1.1 (0.9-2); Albumin Level 3.6 gm/dl (3.4-5.0); BUN Creatinine Ratio 13.8 (10-20); Bilirubin,Total 0.6 mg/dl (0.2-1.0); Calcium 8.9 mg/dl (8.6-10.3); Creatinine Clr Calc Pharmacy 81.7 ml/min; Globulin 3.3 gm/dl (2.5-4.0); Magnesium 2.3 mg/dl (1.7-2.4); Potassium 3.7 mmol/L (3.5-5.1); Total Protein 6.9 gm/dl (6.0-8.3)
[2024-09-08 08:34] LABS: INR 1.1 (0.9-1.1); Prothrombin Time 11.9 Seconds (9.0-12.0)
[2024-09-08] MEDS: ACETAMINOPHEN 1,000 MG/100 ML VIAL IV SCH (09:03)
--- NOTE | 2024-09-08 17:27 | Hospitalist Progress Note ---
Date of Service September 08, 2024 Assessment & Plan (1) Perforated gastric ulcer: (2) Hypertension: (3) Atrial fibrillation: Plan 58-year-old female presents with few days of nausea vomiting including vomitus of dark black liquid who presents with a perforated viscus concerning for perf orated peptic ulcer. Taken emergently to the operating room for evacuation of soilage of her peritoneum and oversew of peptic ulcer. Patient has significant morbidity with regard to this issue and if her ulcer is too large she may require additional transfer to tertiary center per surgical team.Patient on Zosyn and function to cover gram-negative's anaerobic send fungus as preliminary fluid showed possible yeast.. Chronically coagulated Eliquis concerning for prehospital exertional dyspnea and chest pain. Anticoagulation restarted in am of 09/09, preliminary fluid culture shows strep and Hemapholus #Perforated peptic ulcer - s/p Christiano patch repair 09/06/24 - Protonix drip initiated at 22:35 on 09/06/24, treat with drip for 72 hours and then convert to twice daily bolus therapy beginning 09/11/24. - Hemoglobin has been stable postoperatively, Level is 7.9. - Patient is n.p.o. and management of advancement of diet and NG tube will be per surgical team. Patient will likely be transferred to soft food diet on Friday pending results of testing the ulcer repair & removal of NG tube. - Peritoneal fluid culture growing Streptococcus parasanguinis, Strep salicvarius/vestibular gp, Haemophilus parainfluenza. Gram stain showing rare yeast. Patient is established with Infectious Disease and is being maintained on Zosyn & caspofungin -Blood cultures have been negative. #Atrial fibrillation/hypertension/coronary disease -Blood pressure and heart rate have improved -Continue metoprolol IV 5 mg every 4 hours with as needed backup bleeding Eliquis at this time -Holding atorvastatin,isosorbide, and losartan Patient is a full code. DVT prevention are SCDs at this time Admission and Anticipated Discharge Date Admission Date: September 06, 2024 Supervising Physician Co-Signing Physician Notes Patient was seen and examined independently I discussed the case with Orquidea LUGO I reviewed pertinent past medical social family history and also the plan of care and agree with the plan of care Patient doing well with DREW and NG tube. Preliminary cultures are showing strep haemophilus influenza. Remains on Zosyn therapy and caspofungin for concern for yeast. Infectious diseases following. Exam finds her awake alert appropriate she is hungry she feels her stomach is growling she has had no flatus or bowel movement from below she does still have abdominal discomfort she is hypoactive bowel sounds she is soft with voluntary guarding Perforated peptic ulcer remains on Protonix drip for 72 hours and can just start to bolus. Surgery is managing advancement of diet with consideration of upper GI to evaluate equity of patch applied. At this point time we will institute lactated Ringer's therapy to reduce hydration and heparin drip in the morning to prophylax her for atrial fibrillation thromboembolic phenomena. Any exceptions will be noted below Subjective Patient reports that she is feeling "pretty good." She reports abdominal pain/soreness over her upper abdomen/incision site that is improving. She reports that she is passing gas, no bowel movement yet. She is urinating witho ut any issues. She has been ambulatory. She denies any nausea, vomiting, fever/chills, chest pain, shortness of breath, edema, bleeding, dizziness. She reports ongoing intermittent cough with clear phlegm. She states cough seems to be worse when she is moving around. She states she has been using incentive spirometer as directed. She remains NPO but is hungry. She states she has not eaten anything since friday. She states that surgery will be conducting a "leak test" at the end of this week and then she will be able to move to soft diet. She denies any additional complaints or concerns. Review of Systems Review of Systems: As noted in subjective Physical Exam Physical Exam: General: no acute distress; non-toxic appearing; well-nourished; cooperative HEENT: normocephalic, atraumatic; no scleral icterus; PERRLA w/ EOMs intact; vision and hearing grossly intact. (+) NG tube in place Neck: supple; no lymphadenopathy; trachea midline Skin: warm, dry without signs of tenting; no cyanosis; no rashes, bruising, lesions, or erythema noted CV: chest wall NTP; RRR; S1/S2 normal; no murmurs/rubs/gallops; pulses intact and symmetric at radial, DP, and PT Lungs: no acute respiratory distress; symmetrical chest wall expansion; (+) rhonchi present bilaterally ABD: Soft, (+) mild tenderness to palpation of upper abdomen. (+) Hypoactive BS; no rebound/guarding; no distention (+) drew drain present with serous fluid MSK: no tics or fasciculations; no edema noted in the LEs b/l, nonerythematous Neuro: A&Ox3; normal mood and affect; fluent speech; no focal deficits; sensation grossly intact in the LEs b/l Results & Data Results & Data Vital Signs (Past 12 Hours) Temperature, heart rate, blood pressures, oxygen saturation, respiratory rates reviewed Vital Signs Temp Pulse Pulse Resp BP BP BP 09/08/24 14:05 82 09/08/24 13:33 92 H 131/77 09/08/24 11:07 98.8 F 92 H 18 110/69 09/08/24 10:00 09/08/24 09:25 94 H 09/08/24 09:05 95 H 09/08/24 07:17 97.9 F 88 19 111/68 09/08/24 05:52 79 127/83 09/08/24 05:33 90 123/68 Pulse Ox O2 Del Method 09/08/24 14:05 09/08/24 13:33 09/08/24 11:07 96 Room Air 09/08/24 10:00 Room Air 09/08/24 09:25 09/08/24 09:05 09/08/24 07:17 92 Room Air 09/08/24 05:52 09/08/24 05:33 Laboratory Results CBC, chemistries, coagulation studies, blood specimen, peritoneal fluid specimen results reviewed PG Care Time/CCT Total # of Minutes Spent Total Time Spent with Patient: Total time spent is greater than 50% in coordination of care (as documented) at patient's floor/unit and/or counseling patient: Coding Level of Care Code None Diagnoses Perforated gastric ulcer K25.5 Hypertension I10 Atrial fibrillation I48.91
[2024-09-08] MEDS ORDERED: DEXTROSE 10% 1,000 ML IV PRN (17:29)
[2024-09-08] MEDS: LACTATED RINGER'S 1,000 ML IV SCH (17:50)
[2024-09-08] MEDS: MoRPHine SULFATE 2 MG/ML CARP IV PRN (20:42)
[2024-09-09] MEDS: TPN/PPN CONSULT PHARMACY STA (07:40)
[2024-09-09] MEDS ORDERED: CHLORASEPTIC (PHENOL) 1.4% SOLN 180 ML BTL MT PRN (07:50)
--- NOTE | 2024-09-09 07:50 | Surgery Progress Note ---
Date of Service September 09, 2024 Assessment & Plan (1) Perforated gastric ulcer: Plan: POD#3 dx laparoscopy converted to laparotomy and repair of perforated large gastric ulcer w/ garry patch Labs this AM are pending. Vitals are stable NGT in place, to remain to LIWS and strict NPO Remains PPI gtt. On Caspo and Zosyn for ID while cultures pending; ID on board ADALI drain serosang., to remain in place until after leak test Recommend ongoing OOB ambulating and pulmonary toilet May consider hep gtt vs lovenox today if Hbg remains stable Surgical wound is c/d/i, may start daily dressing changes Will obtain UGI tomorrow Can add chloraseptic spray for sore throat Admission and Anticipated Discharge Date Admission Date: September 06, 2024 Supervising Physician Co-Signing Physician Notes Patient seen examined, labs reviewed, agree with above. POD #3 open repair of perforated gastric ulcer. Overall doing well, pain continues to improve. She has been ambulating. She has passed gas. On exam she is afebrile with stable vitals. Her abdomen is soft, incision without infection, drain serosanguineous, NG tube minimal output. Abdomen appropriately tender to palpation. WBC normal, H&H low but stable, likely chronic anemia from bleeding ulcer. Continue PPI, continue NG tube for today, continue drain. Will perform upper GI tomorrow to rule out leak. If this is negative then she can have the NG tube removed and started on clear liquids. Continue antibiotics. Will add Chloraseptic spray and she may have very small amounts of ice chips today. Subjective Patient is doing well. Some abdominal soreness which is tolerable and getting better each day. No nausea/vomiting. Having some throat discomfort 2/2 NGT. She is passing gas. She is getting OOB and to the chair. Physical Exam Physical Exam: awake/alert, no distress Gastrointestinal (Abdomen): Inspection/Auscultation: + abdominal surgical incision (c/d/i with midline saran, no drainage) and + abdominal surgical drain present (serous); abdomen not distended Percussion/Palpation: + abdomen tender (expected ericka incisional discomfort to palpation ) NGT in place Results & Data Vital Signs (Past 12 Hours) Vital Signs Temp Pulse Pulse Resp BP BP Pulse Ox 09/09/24 07:25 98.1 F 84 17 123/83 96 09/09/24 06:03 88 140/83 09/09/24 05:48 87 131/82 09/09/24 03:38 97.9 F 77 20 118/77 92 09/09/24 01:56 76 113/78 09/09/24 01:41 92 H 113/72 09/08/24 23:20 98.8 F 91 H 18 114/73 94 09/08/24 21:57 91 H 09/08/24 20:50 90 115/77 09/08/24 20:25 88 137/83 09/08/24 20:00 O2 Del Method 09/09/24 07:25 Room Air 09/09/24 06:03 09/09/24 05:48 09/09/24 03:38 Room Air 09/09/24 01:56 09/09/24 01:41 09/08/24 23:20 Room Air 09/08/24 21:57 09/08/24 20:50 09/08/24 20:25 09/08/24 20:00 Room Air PG Care Time/CCT Total # of Minutes Spent Total Time Spent with Patient: Total time spent is greater than 50% in coordination of care (as documented) at patient's floor/unit and/or counseling patient: Coding Level of Care Code 07321 Post Operative Follow-Up Diagnoses Perforated gastric ulcer K25.5
[2024-09-09 07:59] LABS: Hematocrit (blood only) 22.1 % (37.0-47.0); Mean Corpuscular Hemoglobin 30.3 pg (25.0-34.0); Mean Corpuscular Hgb Conc 31.7 g/dL (32.0-36.0); Mean Corpuscular Volume 95.7 fL (80.0-100.0); Mean Platelet Volume 8.9 fL (9.4-12.4); Platelet Count 350 K/uL (130-400); RDW Coefficient of Variation 14.3 % (11.5-14.5); RDW Standard Deviation 50.2 fL (36.4-46.3); Red Blood Count 2.31 M/uL (4.20-5.40); White Blood Count 5.72 K/ul (4.8-10.8)
[2024-09-09] MEDS: ENOXAPARIN 100 MG/1ML SYR SQ SCH (07:59)
[2024-09-09 08:17] LABS: Albumin Globulin Ratio 1.1 (0.9-2); Albumin Level 3.3 gm/dl (3.4-5.0); BUN Creatinine Ratio 13.3 (10-20); Bilirubin,Total 0.5 mg/dl (0.2-1.0); Calcium 8.8 mg/dl (8.6-10.3); Creatinine Clr Calc Pharmacy 83.7 ml/min; Globulin 3.1 gm/dl (2.5-4.0); Potassium 3.4 mmol/L (3.5-5.1); Total Protein 6.4 gm/dl (6.0-8.3)
[2024-09-09 08:23] LABS: INR 1.1 (0.9-1.1); Prothrombin Time 11.4 Seconds (9.0-12.0)
[2024-09-09 08:46] LABS: Reticulocyte % 0.08 % (0.50-2.00); Reticulocytes # 3.41 10^6/uL (0.020-0.100)
--- NOTE | 2024-09-09 12:04 | Infectious Disease Progress Nt ---
Date of Service September 09, 2024 Assessment & Plan (1) Perforated gastric ulcer: (2) Peritonitis: Plan Problems: #Perforated gastric ulcer s/p repair (09/07/24) #Secondary peritonitis Micro: 09/07 Fungal BCx: pending 09/07 BCx x2: NGTD 09/06 Peritoneal fluid cx: Strep parasanguinis, Strep salivarius, Haemophilus parainfluenzae, Veillonella parvula group. GS--GPCs, rare yeast Abx: Zosyn 09/06 - present Caspofungin 09/07 - present 59 yo F with history of afib on Eliquis, perforated gastric ulcer (2019) who presented on 09/06/24 as a transfer from [facility] with perforated gastric ulcer s/p diagnostic laparoscopy, converted to open laparotomy, and modified Christiano patch repair of large gastric ulcer, abdominal washout. With secondary peritonitis, on Zosyn and caspofungin. Recommendations: - Follow-up non-finalized peritoneal fluid culture - Will follow-up UGI tomorrow - Can continue Zosyn and caspofungin for now, pending above culture. If source control obtained, anticipate 7 day course Will continue to follow Admission and Anticipated Discharge Date Admission Date: September 06, 2024 Subjective This patient recommendation is based on a telemedicine consult request which was completed asynchronously through chart review and information provided by the primary physician. The patient was not seen or examined today. The evaluation is consultative in nature and all patient care and treatment decisions can either be accepted or rejected by the patient's primary hospital-based treating physician using their own independent medical judgment for their patient. Time Spent Reviewing Chart: 11 - 20 minutes afebrile, no acute events Results & Data Vital Signs (Past 12 Hours) Vital Signs Temp Pulse Pulse Resp BP BP Pulse Ox 09/09/24 11:22 36.3 C L 77 20 136/82 94 09/09/24 08:39 09/09/24 07:25 36.7 C 84 17 123/83 96 09/09/24 06:03 88 140/83 09/09/24 05:48 87 131/82 09/09/24 03:38 36.6 C 77 20 118/77 92 09/09/24 01:56 76 113/78 09/09/24 01:41 92 H 113/72 O2 Del Method O2 Flow Rate 03/06/25 11:22 Nasal Cannula 3 09/09/24 08:39 Room Air 09/09/24 07:25 Room Air 09/09/24 06:03 09/09/24 05:48 09/09/24 03:38 Room Air 09/09/24 01:56 09/09/24 01:41 Laboratory Results Short CBC 09/09/24 Range/Units 07:33 WBC 5.72 (4.8-10.8) K/ul Hgb 7.0 L (12.0-16.0) g/dl Hct 22.1 L (37.0-47.0) % Plt Count 350 (130-400) K/uL BMP 09/09/24 07:33 Sodium 135 L Potassium 3.4 L Chloride 99 Carbon Dioxide 27 BUN 10 Creatinine 0.75 Glucose 110 H Calcium 8.8 Liver Function 09/09/24 Range/Units 07:33 Total Bilirubin 0.5 (0.2-1.0) mg/dl AST 12 L (13-39) U/L ALT 17 (7-52) U/L Alkaline Phosphatase 82 (34-104) U/L Albumin 3.3 L (3.4-5.0) gm/dl Medications Administered Current Inpatient Medications Enoxaparin Sodium (Enoxaparin 80 Mg/0.8 Ml Syr) 80 mg SQ Q12 [facility] Stop: 10/09/24 10:59 Piperacillin Sod/Tazobactam Sod (Zosyn) 4.5 gm in 100 mls @ 25 mls/hr IV Q8H [facility]; Protocol Stop: 09/17/24 02:59 Last Infusion: 09/09/24 05:57 Dose: Infused Pantoprazole Sodium 40 mg/ (Dextrose) 100 mls @ 20 mls/hr IV Q5H [facility] Stop: 10/06/24 21:29 Last Admin: 09/09/24 08:00 Dose: 8 mg/hr, 20 mls/hr Caspofungin 50 mg/ Sodium (Chloride) 260 mls @ 250 mls/hr IV Q24H [facility]; Protocol Stop: 09/17/24 21:59 Last Infusion: 09/08/24 21:58 Dose: Infused Acetaminophen (Ofirmev) 1,000 mg in 100 mls @ 400 mls/hr IV Q8H [facility] Stop: 09/11/24 08:14 Last Infusion: 09/09/24 08:34 Dose: Infused Lactated Ringer's (Lr) 1,000 mls @ 100 mls/hr IV .Q10H [facility] Stop: 09/09/24 23:29 Last Admin: 09/09/24 03:16 Dose: 100 mls/hr Metoprolol Tartrate (Metoprolol Tartrate 1 Mg/Ml Vial) 5 mg IV Q4 PRN PRN Reason: sbp > 185, dbp >95, HR >120 Stop: 10/06/24 18:29 Metoprolol Tartrate (Metoprolol Tartrate 1 Mg/Ml Vial) 5 mg IV Q4H [facility] Stop: 10/07/24 21:59 Last Admin: 09/09/24 05:48 Dose: 5 mg Morphine Sulfate (Morphine Sulfate 2 Mg/Ml Carp) 2 mg IV Q3H PRN PRN Reason: Moderate Pain (Scale 4, 5, 6) Stop: 09/22/24 08:02 Last Admin: 09/08/24 20:42 Dose: 2 mg Morphine Sulfate (Morphine Sulfate 4 Mg/Ml 1 Ml Carp\Vial) 4 mg IV Q3H PRN PRN Reason: Severe Pain (Scale 7, 8, 9,10) Stop: 09/22/24 08:02 Ondansetron HCl (Ondansetron Inj 2 Mg/Ml 2 Ml Vial) 4 mg IV Q6H PRN PRN Reason: Nausea And Vomiting Stop: 10/06/24 21:26 Last Admin: 09/07/24 07:19 Dose: 4 mg Phenol (Chloraseptic (Phenol) 1.4% Soln 180 Ml Btl) 2 sprays MT Q4H PRN PRN Reason: Sore Throat Stop: 10/09/24 07:49
[2024-09-09 12:37] LABS: Basophils # (auto) 0.01 K/uL (0.00-0.20); Basophils % (auto) 0.2 %; Eosinophils # (auto) 0.03 K/uL (0.00-0.50); Eosinophils % (auto) 0.5 %; Hematocrit (blood only) 23.6 % (37.0-47.0); Hemoglobin 7.7 g/dl (12.0-16.0); Immature Granulocytes # (auto) 0.02 K/uL (0.01-0.20); Immature Granulocytes % (auto) 0.3 %; Lymphocytes # (auto) 0.86 K/uL (1.20-3.40); Lymphocytes % (auto) 13.9 %; Mean Corpuscular Hemoglobin 31.4 pg (25.0-34.0); Mean Corpuscular Hgb Conc 32.6 g/dL (32.0-36.0); Mean Corpuscular Volume 96.3 fL (80.0-100.0); Monocytes # (auto) 0.44 K/uL (0.11-0.59); Monocytes % (auto) 7.1 %; Neutrophils # (auto) 4.82 K/uL (1.40-6.50); Platelet Count 371 K/uL (130-400); RDW Coefficient of Variation 13.9 % (11.5-14.5); RDW Standard Deviation 49.7 fL (36.4-46.3); Red Blood Count 2.45 M/uL (4.20-5.40); White Blood Count 6.18 K/ul (4.8-10.8)
[2024-09-09 12:56] LABS: Polychromasia 1+; Target Cells 1+
[2024-09-09] MEDS: POTASSIUM CHLORIDE / WTR 10 MEQ/100 ML PLCT IV SCH (18:25)
--- NOTE | 2024-09-09 18:33 | Hospitalist Progress Note ---
<Statement entered by Karla Moses MD - 09/09/24 18:51> I have reviewed vital signs, chart notes, labs and imaging. I have personally seen, evaluated and examined the patient. I have also discussed the management of the patient with the ONIEL and I agree with the exam findings documented in the history and physical examination and the documented assessment and plan unless otherwise stated below. Mrs. Hutton continues to be n.p.o. with NG tube recovering from Christiano patch and ex lap for large gastric ulcer she does not have pain, her mouth is dry, she has had some lightheadedness not short of breath no chest pain on my exam alert awake alert oriented x 4 heart is regular no murmurs rubs or gallops abdomen is soft nondistended bowel tones are present, lower extremities are warm and well-perfused no edema the main new issue for today is that hemoglobin has dropped to 7.0. she certainly had acute blood loss anemia earlier in stay however unclear if she is currently bleeding at all and this could be lab error or dilutional drop. We repleted the hemoglobin later in the morning and it was 7.7, will continue to trend with morning labs. Will transfuse if hemoglobin drops below 7 or if she is symptomatic with hemoglobin in the sevens. we did hold the enoxaparin which was being used for bridging she did receive 90 mg this morning. I discussed the dosing with the pharmacist when we resume it it should be 80 mg every 12 hours. I think the risk of stroke or other thrombosis is less than the risk of significant bleeding if we continued full dose anticoagulation today. Will reassess tomorrow Date of Service September 09, 2024 Assessment & Plan (1) Perforated gastric ulcer: (2) Hypertension: (3) Atrial fibrillation: Plan 58-year-old female presents with few days of nausea vomiting including vomitus of dark black liquid who presents with a perforated viscus concerning for perforated peptic ulcer. Taken emergently to the operating room for evacuation of soilage of her peritoneum and oversew of peptic ulcer. Patient has sig nificant morbidity with regard to this issue and if her ulcer is too large she may require additional transfer to tertiary center per surgical team.Patient on Zosyn and function to cover gram-negative's anaerobic send fungus as preliminary fluid showed possible yeast.. Chronically coagulated Eliquis concerning for prehospital exertional dyspnea and chest pain. Anticoagulation restarted in am of 3/6, preliminary fluid culture shows strep and Hemapholus. Surgical specimen is revealing a benign perforated gastric ulcer. Anticoagulation currently being held due to low hemoglobin and bleeding risk. #Perforated peptic ulcer - s/p Christiano patch repair 09/06/24 - Protonix drip initiated at 22:35 on 09/06/24, treat with drip for 72 hours and then convert to twice daily bolus therapy beginning 09/11/24. - Hemoglobin has been stable postoperatively, but dropped to 7.0 this AM. Repeat CBC this afternoon revealed Hemoglobin of 7.7. - Patient is n.p.o. and management of advancement of diet and NG tube will be per surgical team. Patient will likely be transferred to soft food diet on Friday pending results of testing the ulcer repair & removal of NG tube. - Peritoneal fluid culture growing Streptococcus parasanguinis, Strep salicvarius/vestibular gp, Haemophilus parainfluenza. Gram stain showing rare yeast. Patient is established with Infectious Disease and is being maintained on Zosyn & caspofungin -Blood cultures have been negative. -Surgical specimen is revealing a benign perforated gastric ulcer #Atrial fibrillation/hypertension/coronary disease -Blood pressure and heart rate have improved -Continue metoprolol IV 5 mg every 4 hours with as needed backup bleeding Eliquis at this time -Holding atorvastatin,isosorbide, and losartan -Hold heparin pending AM lab results due to bleeding risk. Blood transfusion consent was obtained today. I personally reviewed the risk/benefits of blood transfusion and patient verbalized understanding. Patient is a full code. DVT prevention are SCDs at this time Admission and Anticipated Discharge Date Admission Date: September 06, 2024 Subjective Patient reports that she is feeling well today, no complaints or concerns. She reports mild soreness in the upper abdomen that is improving with each day. She is passing gas, no bowel movement yet. She denies any trouble urinating. She remains n.p.o. & she states cough has improved. She specifically denies fever/chills, headache, fatigue, dizziness, vision change, trouble swallowing, chest pain, shortness of breath, palpitations, nausea, vomiting, dysuria, weakne ss, numbness/tingling, bleeding/bruising, rash. Review of Systems Review of Systems: As noted in subjective Physical Exam Physical Exam: General: no acute distress; non-toxic appearing; well-nourished; cooperative HEENT: normocephalic, atraumatic; no scleral icterus; PERRLA w/ EOMs intact; vision and hearing grossly intact. (+) NG tube in place Neck: supple; no lymphadenopathy; trachea midline Skin: warm, dry without signs of tenting; no cyanosis; no rashes, bruising, lesions, or erythema noted CV: chest wall NTP; (+) irregularly irregular rhythm; S1/S2 normal; no murmurs/rubs/gallops; pulses intact and symmetric at radial, DP, and PT Lungs: no acute respiratory distress; symmetrical chest wall expansion; lungs CTA without wheezing, rales, rhonchi ABD: Soft, (+) mild tenderness to palpation of upper abdomen. (+) Hypoactive BS; no rebound/guarding; no distention (+) drew drain present with serous fluid MSK: no tics or fasciculations; no edema noted in the LEs b/l, nonerythematous Neuro: A&Ox3; normal mood and affect; fluent speech; no focal deficits; sensation grossly intact in the LEs b/l Results & Data Results & Data Vital Signs (Past 12 Hours) Temperature, heart rate, respiratory rate, blood pressure, oxygen saturation reviewed Vital Signs Temp Pulse Pulse Resp BP BP Pulse Ox 09/09/24 17:18 97 H 131/81 09/09/24 15:50 98.8 F 83 20 126/80 95 09/09/24 12:50 99 H 128/81 09/09/24 12:13 82 136/82 09/09/24 11:22 97.3 F L 77 20 136/82 94 09/09/24 08:39 09/09/24 08:00 87 09/09/24 07:25 98.1 F 84 17 123/83 96 O2 Del Method O2 Flow Rate 09/09/24 17:18 09/09/24 15:50 Room Air 09/09/24 12:50 09/09/24 12:13 09/09/24 11:22 Nasal Cannula 3 09/09/24 08:39 Room Air 09/09/24 08:00 09/09/24 07:25 Room Air Laboratory Results CBC, chemistries, iron studies, coagulation studies reviewed Diagnostic Findings Surgical specimen reviewed PG Care Time/CCT Total # of Minutes Spent Total Time Spent with Patient: Total time spent is greater than 50% in coordination of care (as documented) at patient's floor/unit and/or counseling patient: Coding Level of Care Code None Diagnoses Perforated gastric ulcer K25.5 Hypertension I10 Atrial fibrillation I48.91
--- NOTE | 2024-09-10 07:27 | Billing Data ---
Date of Service September 09, 2024 Coding Level of Care Code 85801 SUB INP/OBS CARE MIN
[2024-09-10 07:55] LABS: Hematocrit (blood only) 23.6 % (37.0-47.0); Hemoglobin 7.5 g/dl (12.0-16.0); Mean Corpuscular Hemoglobin 30.9 pg (25.0-34.0); Mean Corpuscular Hgb Conc 31.8 g/dL (32.0-36.0); Mean Corpuscular Volume 97.1 fL (80.0-100.0); Mean Platelet Volume 8.9 fL (9.4-12.4); Platelet Count 370 K/uL (130-400); RDW Standard Deviation 50.3 fL (36.4-46.3); Red Blood Count 2.43 M/uL (4.20-5.40); White Blood Count 4.34 K/ul (4.8-10.8)
--- NOTE | 2024-09-10 08:09 | Surgery Progress Note ---
Date of Service September 10, 2024 Assessment & Plan (1) Perforated gastric ulcer: Plan: POD# 4 dx laparoscopy converted to laparotomy and repair of perforated large gastric ulcer w/ garry patch VSS Hemoglobin 7.5 , anticoagulation is held Continue PPI gtt. ADALI drain serosang. Surgical wound is c/d/i, do daily dressing changes NGT in place, to remain to LIWS and strict NPO Scheduled for UGI this AM to check for leak will follow up with results If shows leak pt will need to remain NPO, and will need PPN/TPN, pt has been NPO >5days Admission and Anticipated Discharge Date Admission Date: September 06, 2024 Supervising Physician Co-Signing Physician Notes Patient seen and examined, labs and imaging reviewed, agree with above. POD #4 open repair of large perforated gastric ulcer. Upper GI today personally reviewed and interpreted and shows no evidence of leak, some narrowing at the repair site which is expected secondary to edema and being at the incisura. On exam she is afebrile stable vitals. Abdomen is soft, incision without infection, ADALI serosanguineous. NG tube removed, clear liquid diet ordered. Can slowly advance her to full liquids and then potentially to a pured diet. She should stay on a pured diet for a few weeks after surgery. She will eventually need another endoscopy. She can follow-up with me in [address] Peres covering over the weekend Subjective pt report +flatus no bm post surgical pain to abd no CP /SOB Review of Systems Constitutional: no fever and no chills Respiratory: no dyspnea Cardiovascular: no chest pain Gastrointestinal: + abdominal pain; no nausea and no vomit ing Physical Exam Constitutional: cooperative; no acute distress Respiratory: normal respiratory effort and able to speak in complete sentences; no respiratory distress Cardiovascular: Rate/Rhythm: regular rate Gastrointestinal (Abdomen): Inspection/Auscultation: + abdominal surgical incision (dressing CDI ) and + abdominal surgical drain present (serosang. ); abdomen not distended Psychiatric: Orientation: alert and oriented x 3 Results & Data Vital Signs (Past 12 Hours) Vital Signs Temp Pulse Pulse Resp BP BP Pulse Ox 09/10/24 07:56 97.9 F 80 19 124/76 96 09/10/24 06:54 89 09/10/24 06:13 78 138/83 09/10/24 05:49 73 149/80 H 09/10/24 03:38 75 138/83 09/10/24 03:22 65 145/72 H 09/10/24 02:31 97.7 F 77 18 142/82 H 93 09/09/24 22:54 97.9 F 82 18 147/70 H 94 09/09/24 22:42 75 147/83 H 09/09/24 22:27 83 147/81 H 09/09/24 21:56 89 09/09/24 20:48 89 150/81 H 09/09/24 20:29 85 138/82 O2 Del Method 09/10/24 07:56 Room Air 09/10/24 06:54 09/10/24 06:13 09/10/24 05:49 09/10/24 03:38 09/10/24 03:22 09/10/24 02:31 Room Air 09/09/24 22:54 Room Air 09/09/24 22:42 09/09/24 22:27 09/09/24 21:56 09/09/24 20:48 09/09/24 20:29 Results CBC w Diff Results: RBC 2.43 M/uL (4.20-5.40) L 09/10/24 WBC 4.34 K/ul (4.8-10.8) L 09/10/24 Hgb 7.5 g/dl (12.0-16.0) L 09/10/24 Hct 23.6 % (37.0-47.0) L 09/10/24 MCV 97.1 fL (80.0-100.0) 09/10/24 MCH 30.9 pg (25.0-34.0) 09/10/24 MCHC 31.8 g/dL (32.0-36.0) L 09/10/24 RDW Standard Deviation 50.3 fL (36.4-46.3) H 09/10/24 RDW Coefficient of Variation 14.0 % (11.5-14.5) 09/10/24 Plt Count 370 K/uL (130-400) 09/10/24 MPV 8.9 fL (9.4-12.4) L 09/10/24 Neutrophils (%) (Auto) 78.0 % 09/09/24 Lymphocytes (%) (Auto) 13.9 % 09/09/24 Monocytes # (Auto) 0.44 K/uL (0.11-0.59) 09/09/24 Eosinophils # (Auto) 0.03 K/uL (0.00-0.50) 09/09/24 Immature Granulocyte % (Auto) 0.3 % 09/09/24 Neutrophils # (Auto) 4.82 K/uL (1.40-6.50) 09/09/24 Lymphocytes # (Auto) 0.86 K/uL (1.20-3.40) L 09/09/24 Monocytes # (Auto) 0.44 K/uL (0.11-0.59) 09/09/24 Eosinophils # (Auto) 0.03 K/uL (0.00-0.50) 09/09/24 Basophils # (Auto) 0.01 K/uL (0.00-0.20) 09/09/24 Immature Granulocyte # (Auto) 0.02 K/uL (0.01-0.20) 5 Hypersegmented Neutrophils 1+ 07/27/24 Polychromasia 1+ 09/09/24 Target Cells 1+ 09/09/24 PG Care Time/CCT Total # of Minutes Spent Total Time Spent with Patient: Total time spent is greater than 50% in coordination of care (as documented) at patient's floor/unit and/or counseling patient: Coding Level of Care Code 99277 Post Operative Follow-Up Diagnoses Perforated gastric ulcer K25.5
[2024-09-10 08:18] LABS: Albumin Level 3.3 gm/dl (3.4-5.0); Bilirubin,Total 0.5 mg/dl (0.2-1.0); Calcium 8.7 mg/dl (8.6-10.3); Potassium 3.2 mmol/L (3.5-5.1)
[2024-09-10 08:24] LABS: Albumin Globulin Ratio 1.1 (0.9-2); BUN Creatinine Ratio 9.5 (10-20); Creatinine Clr Calc Pharmacy 74.7 ml/min; Globulin 3.1 gm/dl (2.5-4.0); Total Protein 6.4 gm/dl (6.0-8.3)
--- NOTE | 2024-09-10 09:29 | Fluoroscopy Report ---
SINGLE CONTRAST UPPER GI SERIES CLINICAL HISTORY: Perforated gastric ulcer repair 09/06/24. Check for leak COMPARISON STUDY: CT of the abdomen and pelvis September 06, 2024. FLUOROSCOPY TIME: 25 seconds FLUOROSCOPY IMAGES: 11 Ka,r: 25.1 mGy PROCEDURE AND FINDINGS: Single contrast upper GI series was performed utilizing Optiray. A pharmacy data analyst imag e of the abdomen was obtained. This demonstrated a nasogastric tube, laparotomy skin saran and surg ical drain. The patient ingested 150 cc of Optiray. Mucosal detail within the esophagus is diminished but no definite abnormality is identified. The stomach was well opacified. No extraluminal contrast adjacent to the stomach was identified to suggest leak. Narrowing of the distal stomach with wall thi ckening is likely due to edema. Contrast did pass into the duodenum and jejunum. Caliber of the opaci fied small bowel is normal. IMPRESSION: 1. No contrast extravasation to suggest gastric leak status post repair. 2. Narrowing of the distal stomach with wall thickening which is likely due to edema. This is expecte d in the early postoperative setting. Contrast passed into the duodenum. ACT 112: Negative or not required by law. Electronically signed by: Donaldo Zavala M.D. 09/10/2024 9:26 AM
--- NOTE | 2024-09-10 09:31 | Infectious Disease Progress Nt ---
Date of Service September 10, 2024 Assessment & Plan (1) Perforated gastric ulcer: (2) Peritonitis: Plan Problems: #Perforated gastric ulcer s/p repair (09/07/24) #Secondary peritonitis Micro: 09/07 Fungal BCx: pending 09/07 BCx x2: NGTD 09/06 Peritoneal fluid cx: Strep parasanguinis, Strep salivarius, Haemophilus parainfluenzae, Veillonella parvula group. GS--GPCs, rare yeast Abx: Zosyn 09/06 - present Caspofungin 09/07 - present 59 yo F with history of afib on Eliquis, perforated gastric ulcer (2019) who presented on 09/06/24 as a transfer from [facility] with perforated gastric ulcer s/p diagnostic laparoscopy, converted to open laparotomy, and modified Christiano patch repair of large gastric ulcer, abdominal washout. With secondary peritonitis, on Zosyn and caspofungin. Peritoneal fluid culture grew Strep parasanguinis, Strep salivarius, Haemophilus parainfluenzae, Veillonella parvula group. UGI series on 09/10 showed no contrast extravasation to suggest gastric leak s/p repair. Recommendations: - Can complete a 7 day course of antibiotics from the OR through 09/13. Can transition to amox/clav 875 mg PO BID plus fluconazole 400 mg PO daily if discharging Will sign off. Admission and Anticipated Discharge Date Admission Date: September 06, 2024 Subjective This patient recommendation is based on a telemedicine consult request which was completed asynchronously through chart review and information provided by the primary physician. The patient was not seen or examined today. The evaluation is consultative in nature and all patient care and treatment decisions can either be accepted or rejected by the patient's primary hospital-based treating physician using their own independent medical judgment for their patient. Time Spent Reviewing Chart: 11 - 20 minutes Results & Data Vital Signs (Past 12 Hours) Vital Signs Temp Pulse Pulse Resp BP BP Pulse Ox 09/10/24 07:56 36.6 C 80 19 124/76 96 09/10/24 06:54 89 09/10/24 06:13 78 138/83 09/10/24 05:49 73 149/80 H 09/10/24 03:38 75 138/83 09/10/24 03:22 65 145/72 H 09/10/24 02:31 36.5 C 77 18 142/82 H 93 09/09/24 22:54 36.6 C 82 18 147/70 H 94 09/09/24 22:42 75 147/83 H 09/09/24 22:27 83 147/81 H 09/09/24 21:56 89 O2 Del Method 09/10/24 07:56 Room Air 09/10/24 06:54 09/10/24 06:13 09/10/24 05:49 09/10/24 03:38 09/10/24 03:22 09/10/24 02:31 Room Air 09/09/24 22:54 Room Air 09/09/24 22:42 09/09/24 22:27 09/09/24 21:56 Laboratory Results Short CBC 09/09/24 09/10/24 Range/Units 12:13 07:04 WBC 6.18 4.34 L (4.8-10.8) K/ul Hgb 7.7 L 7.5 L (12.0-16.0) g/dl Hct 23.6 L 23.6 L (37.0-47.0) % Plt Count 371 370 (130-400) K/uL BMP 09/10/24 07:04 Sodium 137 Potassium 3.2 L Chloride 100 Carbon Dioxide 27 BUN 8 Creatinine 0.84 Glucose 104 H Calcium 8.7 Liver Function 09/10/24 Range/Units 07:04 Total Bilirubin 0.5 (0.2-1.0) mg/dl AST 12 L (13-39) U/L ALT 14 (7-52) U/L Alkaline Phosphatase 86 (34-104) U/L Albumin 3.3 L (3.4-5.0) gm/dl Diagnostic Findings Upper GI Series 09/10/24 07:00 SINGLE CONTRAST UPPER GI SERIES CLINICAL HISTORY: Perforated gastric ulcer repair 09/06/24. Check for leak COMPARISON STUDY: CT of the abdomen and pelvis September 06, 2024. FLUOROSCOPY TIME: 25 seconds FLUOROSCOPY IMAGES: 11 Ka,r: 25.1 mGy PROCEDURE AND FINDINGS: Single contrast upper GI series was performed utilizing Optiray. A home health aide caregiver image of the abdomen was obtained. This demonstrated a nasogastric tube, laparotomy skin saran and surgical drain. The patient ingested 150 cc of Optiray. Mucosal detail within the esophagus is diminished but no definite abnormality is identified. The stomach was well opacified. No extraluminal contrast adjacent to the stomach was identified to suggest leak. Narrowing of the distal stomach with wall thickening is likely due to edema. Contrast did pass into the duodenum and jejunum. Caliber of the opacified small bowel is normal. IMPRESSION: 1. No contrast extravasation to suggest gastric leak status post repair. 2. Narrowing of the distal stomach with wall thickening which is likely due to edema. This is expected in the early postoperative setting. Contrast passed into the duodenum. ACT 112: Negative or not required by law. Electronically signed by: Donaldo Zavala M.D. 09/10/2024 9:26 AM Medications Administered Current Inpatient Medications Enoxaparin Sodium (Enoxaparin 80 Mg/0.8 Ml Syr) 80 mg SQ Q12 [facility] Stop: 10/09/24 10:59 Piperacillin Sod/Tazobactam Sod (Zosyn) 4.5 gm in 100 mls @ 25 mls/hr IV Q8H ELIZ; Protocol Stop: 09/17/24 02:59 Last Infusion: 09/10/24 09:26 Dose: Infused Pantoprazole Sodium 40 mg/ (Dextrose) 100 mls @ 20 mls/hr IV Q5H ELIZ Stop: 10/06/24 21:29 Last Admin: 09/10/24 08:44 Dose: 8 mg/hr, 20 mls/hr Caspofungin 50 mg/ Sodium (Chloride) 260 mls @ 250 mls/hr IV Q24H ELIZ; Protocol Stop: 09/17/24 21:59 Last Infusion: 09/09/24 23:32 Dose: Infused Acetaminophen (Ofirmev) 1,000 mg in 100 mls @ 400 mls/hr IV Q8H ELIZ Stop: 09/11/24 08:14 Last Admin: 09/10/24 08:44 Dose: 400 mls/hr Iron Sucrose 300 mg/ Sodium (Chloride) 265 mls @ 176.667 mls/hr IV TODAY ONE Stop: 09/10/24 09:48 Metoprolol Tartrate (Metoprolol Tartrate 1 Mg/Ml Vial) 5 mg IV Q4 PRN PRN Reason: sbp > 185, dbp >95, HR >120 Stop: 10/06/24 18:29 Metoprolol Tartrate (Metoprolol Tartrate 1 Mg/Ml Vial) 5 mg IV Q4H ELIZ Stop: 10/07/24 21:59 Last Admin: 09/10/24 05:49 Dose: 5 mg Morphine Sulfate (Morphine Sulfate 2 Mg/Ml Carp) 2 mg IV Q3H PRN PRN Reason: Moderate Pain (Scale 4, 5, 6) Stop: 09/22/24 08:02 Last Admin: 09/09/24 20:30 Dose: 2 mg Morphine Sulfate (Morphine Sulfate 4 Mg/Ml 1 Ml Carp\Vial) 4 mg IV Q3H PRN PRN Reason: Severe Pain (Scale 7, 8, 9,10) Stop: 09/22/24 08:02 Ondansetron HCl (Ondansetron Inj 2 Mg/Ml 2 Ml Vial) 4 mg IV Q6H PRN PRN Reason: Nausea And Vomiting Stop: 10/06/24 21:26 Last Admin: 09/09/24 20:30 Dose: 4 mg Phenol (Chloraseptic (Phenol) 1.4% Soln 180 Ml Btl) 2 sprays MT Q4H PRN PRN Reason: Sore Throat Stop: 10/09/24 07:49
[2024-09-10] MEDS: IRON SUCROSE 300 MG in SODIUM CHLORIDE 0.9% 250 ML IV ONE (09:41)
[2024-09-10] MEDS: ENOXAPARIN 80 MG/0.8 ML SYR SQ SCH (10:19)
[2024-09-10] MEDS: POTASSIUM CHLORIDE / WTR 10 MEQ/100 ML PLCT IV SCH (12:38)
[2024-09-10 14:59] LABS: Hematocrit (blood only) 23.2 % (37.0-47.0); Hemoglobin 7.4 g/dl (12.0-16.0)
--- NOTE | 2024-09-10 17:20 | Hospitalist Progress Note ---
Date of Service September 10, 2024 Assessment & Plan (1) Perforated gastric ulcer: (2) Hypertension: (3) Atrial fibrillation: Plan 58-year-old female presents with few days of nausea vomiting including vomitus of dark black liquid who presents with a perforated viscus concerning for perf orated peptic ulcer. Taken emergently to the operating room for evacuation of soilage of her peritoneum and oversew of peptic ulcer. Patient has significant morbidity with regard to this issue and if her ulcer is too large she may require additional transfer to tertiary center per surgical team.Patient on Zosyn and function to cover gram-negative's anaerobic send fungus as preliminary fluid showed possible yeast.. Chronically coagulated Eliquis concerning for prehospital exertional dyspnea and chest pain. Anticoagulation restarted in am of 09/09, preliminary fluid culture shows strep and Hemapholus. Surgical specimen is revealing a benign perforated gastric ulcer. Anticoagulation currently being held due to low hemoglobin and bleeding risk. #Perforated peptic ulcer - s/p Christiano patch repair 09/06/24 - Protonix drip initiated at 22:35 on 09/06/24, treat with drip for 72 hours and then convert to twice daily bolus therapy beginning 09/11/24. - Hemoglobin has been stable postoperatively- 7.5 this a.m. and 7.4 this afternoon -NG tube has been removed. Tolerating soft diet at this time. - Peritoneal fluid culture growing Streptococcus parasanguinis, Strep salicvarius/vestibular gp, Haemophilus parainfluenza. Gram stain showing rare yeast. Patient is established with Infectious Disease and is being maintained on Zosyn & caspofungin -per ID, patient may be transitioned to Augmentin and fluconazole once she is able to tolerate PO medication. Continue antibiotic and antifungal therapy through 09/13/2024. -Blood cultures have been negative. -Surgical specimen is revealing a benign perforated gastric ulcer #Atrial fibrillation/hypertension/coronary disease -Blood pressure and heart rate have improved -Continue metoprolol IV 5 mg every 4 hours with as needed -Holding atorvastatin,isosorbide, and losartan -Lovenox currently being held due to low hemoglobin and elevated bleeding risk. Patient is a full code. DVT prevention are SCDs at this time Admission and Anticipated Discharge Date Admission Date: September 06, 2024 Supervising Physician Co-Signing Physician Notes I have reviewed vital signs, chart notes, labs and imaging. I have personally seen, evaluated and examined the patient. I have also discussed the management of the patient with the ONIEL and I agree with the exam findings documented in the history and physical examination and the documented assessment and plan unless otherwise stated below. Hannah is a 59-year-old who had perforation secondary to very large gastric ulcer which required emergency ex lap and Christiano patch on 09/06. She continues to improve she has an NG tube in place today although we anticipated will be removed soon by the surgical team. Her only complaint is the NG tube. She is not having any nausea or vomiting. Abdominal tenderness at the surgical sites is not severe. She is passing flatus but not has not had any stools. She does have some lightheadedness with standing up and ambulation. On my exam she is alert and oriented x 4 she has an NG tube mucous membranes are dry normal work of breathing lungs are clear to auscultation bilaterally heart is irregular with no murmurs, abdomen is soft mildly tender to palpation no rebound rigidity or guarding she has bowel tones, lower extremities warm and well-perfused without edema Main concern today is a drop in her hemoglobin down to 7.0, she has had acute blood loss anemia because of her gastric ulcer, it is unclear that there is any acute bleeding going on at this time, we repeated a hemoglobin in the afternoon and it was much higher at 7.7, we are continuing twice daily IV PPI, she has not had any stools yet and there is no blood coming from her NG tube suction. Continue to monitor hemoglobin Subjective Patient states she is feeling well today, no complaints or concerns. She reports mild upper abdominal pain/soreness that continues to improve. She reports that she is started having bowel movements, reports black diarrhea x 2 bowel movements. She states that she is feeling less lightheaded. Her NG tube was removed today and had gastric study which revealed no leaks. She is on a soft diet and tolerating well. She specifically denies fever/chills, headache, weakness, dizziness, vision change, trouble swallowing, nausea, vomiting, hematemesis, hematochezia, dysuria, hematuria, chest pain, cough, shortness of breath, swelling, bruising, rash. She initially denied IV potassium due to burning, but has agreed to resume slower dose with fluids. She states she is tolerating this well without side effect. Review of Systems Review of Systems: As noted in subjective Physical Exam Physical Exam: General: no acute distress; non-toxic appearing; well-nourished; cooperative HEENT: normocephalic, atraumatic; no scleral icterus; PERRLA w/ EOMs intact; vision and hearing grossly intact. (+) NG tube in place Neck: supple; no lymphadenopathy; trachea midline Skin: warm, dry without signs of tenting; no cyanosis; no rashes, bruising, lesions, or erythema noted CV: chest wall NTP; (+) irregularly irregular rhythm; S1/S2 normal; no murmurs/rubs/gallops; pulses intact and symmetric at radial, DP, and PT Lungs: no acute respiratory distress; symmetrical chest wall expansion; lungs CTA without wheezing, rales, rhonchi ABD: Soft, (+) mild tenderness to palpation of upper abdomen. Bowel sounds present in all 4 quadrants. no rebound/guarding; no distention (+) drew drain present with serous fluid MSK: no tics or fasciculations; no edema noted in the LEs b/l, nonerythematous Neuro: A&Ox3; normal mood and affect; fluent speech; no focal deficits; sensation grossly intact in the LEs b/l Results & Data Results & Data Vital Signs (Past 12 Hours) Vital Signs Temperature, heart rate, respiratory rate, blood pressure, oxygen saturation reviewed Temp Pulse Pulse Resp BP BP Pulse Ox 09/10/24 16:17 85 09/10/24 15:53 99 H 09/10/24 15:52 90 134/83 09/10/24 15:45 97.7 F 82 18 134/83 97 09/10/24 11:02 98.2 F 83 20 143/81 H 96 09/10/24 10:49 83 09/10/24 10:21 85 138/83 09/10/24 07:56 97.9 F 80 19 124/76 96 09/10/24 06:54 89 09/10/24 06:13 78 138/83 09/10/24 05:49 73 149/80 H O2 Del Method 09/10/24 16:17 09/10/24 15:53 09/10/24 15:52 09/10/24 15:45 Room Air 09/10/24 11:02 Room Air 09/10/24 10:49 09/10/24 10:21 09/10/24 07:56 Room Air 09/10/24 06:54 09/10/24 06:13 09/10/24 05:49 Laboratory Results CBC, CMP, H&H reviewed Diagnostic Findings Infectious disease and surgery progress notes reviewed PG Care Time/CCT Total # of Minutes Spent Total Time Spent with Patient: Total time spent is greater than 50% in coordination of care (as documented) at patient's floor/unit and/or counseling patient: Coding Level of Care Code None Diagnoses Perforated gastric ulcer K25.5 Hypertension I10 Atrial fibrillation I48.91
[2024-09-11 08:15] LABS: Hematocrit (blood only) 22.2 % (37.0-47.0); Mean Corpuscular Hemoglobin 30.6 pg (25.0-34.0); Mean Corpuscular Hgb Conc 31.5 g/dL (32.0-36.0); Mean Corpuscular Volume 96.9 fL (80.0-100.0); Mean Platelet Volume 9.3 fL (9.4-12.4); Nucleated RBC # (auto) 0.04 K/uL (0.00-0.12); Nucleated RBC % (auto) 1.1 %; Platelet Count 387 K/uL (130-400); RDW Coefficient of Variation 14.1 % (11.5-14.5); RDW Standard Deviation 49.6 fL (36.4-46.3); Red Blood Count 2.29 M/uL (4.20-5.40); White Blood Count 3.59 K/ul (4.8-10.8)
[2024-09-11 08:19] LABS: Albumin Globulin Ratio 1.1 (0.9-2); Albumin Level 3.3 gm/dl (3.4-5.0); BUN Creatinine Ratio 7.1 (10-20); Bilirubin,Total 0.4 mg/dl (0.2-1.0); Calcium 8.6 mg/dl (8.6-10.3); Creatinine Clr Calc Pharmacy 74.7 ml/min; Potassium 3.2 mmol/L (3.5-5.1); Total Protein 6.3 gm/dl (6.0-8.3)
[2024-09-11] MEDS ORDERED: oxyCODONE HCL IR 5 MG TAB (IMMEDIATE RELEASE) PO PRN (08:24)
[2024-09-11] MEDS: ACETAMINOPHEN 325 MG TAB PO PRN (08:34)
[2024-09-11] MEDS ORDERED: POTASSIUM CHLORIDE 10 MEQ TABCR PO SCH (09:00)
[2024-09-11] MEDS: MoRPHine SULFATE 2 MG/ML CARP IV PRN (09:50)
[2024-09-11] MEDS: APIXABAN 5 MG TABLET PO SCH (09:58)
[2024-09-11] MEDS: ATORVASTATIN 20 MG TAB PO SCH (09:58)
[2024-09-11] MEDS: PANTOprazole 40 MG TAB PO SCH (09:58)
[2024-09-11] MEDS: METOPROLOL SUCC 25MG EXT REL TAB PO SCH (09:58)
[2024-09-11] MEDS: POTASSIUM CHLORIDE CRTAB 20 MEQ TABCR PO SCH (10:02)
[2024-09-11] MEDS ORDERED: SODIUM CHLORIDE 0.9% 100 ML IV PRN (11:04)
[2024-09-11] MEDS ORDERED: SODIUM CHLORIDE 0.9% 50 ML IV PRN (11:04)
--- NOTE | 2024-09-11 12:33 | Surgery Progress Note ---
Date of Service September 11, 2024 Assessment & Plan (1) Perforated gastric ulcer: Plan: good progress continue ADALI advance to fulls possible DC in AM if does well on regular tomorrow Present on Admission?: Yes Admission and Anticipated Discharge Date Admission Date: September 06, 2024 Subjective pain controlled taking po well Review of Systems Constitutional: no fever and no chills Respiratory: no cough and no dyspnea Cardiovascular: no chest pain Gastrointestinal: + abdominal pain; no nausea and no vomit ing Genitourinary: no dysuria Neurologic: no localized weakness and no generalized weakness Physical Exam Constitutional: WD/WN, vitals as above Neck: trachea midline Respiratory: normal respiratory effort, lungs clear to auscultation Cardiovascular: RRR, no murmur, no edema Gastrointestinal (Abdomen): normal bowel sounds, soft, nontender, no hepatosplenomegaly Inspection/Auscultation: abdomen normal to inspection, + abdomen distended and normal bowel sounds Percussion/Palpation: + abdomen tender and abdomen soft; no guarding and abdomen not rigid ADALI serous Musculoskeletal: Head/Neck/Chest: normocephalic and head atraumatic Results & Data Vital Signs (Past 12 Hours) Vital Signs Temp Pulse Pulse Resp BP BP Pulse Ox 09/11/24 11:00 36.8 C 74 20 142/81 H 96 09/11/24 07:00 69 150/82 H 09/11/24 07:00 36.5 C 69 20 150/82 H 93 09/11/24 06:35 89 141/82 H 09/11/24 03:50 80 137/82 09/11/24 03:00 36.6 C 18 94 09/11/24 02:58 81 142/82 H O2 Del Method 09/11/24 11:00 Room Air 09/11/24 07:00 09/11/24 07:00 Room Air 09/11/24 06:35 09/11/24 03:50 09/11/24 03:00 Room Air 09/11/24 02:58
--- NOTE | 2024-09-11 13:46 | Billing Data ---
Date of Service September 10, 2024 Coding Level of Care Code 60986 INT INP/OBS CARE
--- NOTE | 2024-09-11 13:58 | Hospitalist Progress Note ---
Date of Service September 11, 2024 Assessment & Plan (1) Perforated gastric ulcer: (2) Hypertension: (3) Atrial fibrillation: Plan Hannah is a 59-year-old who had perforation secondary to very large gastric ulcer which required emergency ex lap and Christiano patch on 09/06. She continues to improve she has an NG tube in place today although we anticipated will be removed soon by the surgical team. Her only complaint is the NG tube. She is not having any nausea or vomiting. Abdominal tenderness at the surgical sites is not severe. She is passing flatus but not has not had any stools. She does have some lightheadedness with standing up and ambulation. with respect to her large perforated gastric ulcer, recent ex lap and Christiano patch this is being managed by the surgical team - NG tube has been removed and she advanced to full liquids today - reviewed OP cultures - polymicrobial, fungal culture pending, blood cultures NGTD - continue pip-tazo and caspofungin for perforated viscus - infectious diseases consulting, reviewed recs and note yesterday, recommended completing 7-day course of antibiotics which will end on 09/13 acute blood loss anemia, melena - this may be old blood from her gastric ulcer and is the first stool she has passed since surgery, I doubt she is acutely bleeding though it is possible - her anemia is symptomatic with respect to lightheadedness and weakness with ambulation therefore we will transfuse 1 unit of red blood cells today I did personally discussed the risks and benefits of transfusion with her on 09/11 - we will check posttransfusion Hg for appropriate response, continue to monitor hemoglobin at least daily - she had pantoprazole drip earlier in hospitalization, continue IV twice daily atrial fibrillation/flutter coronary artery disease hypertension - resume atorvastatin and oral metoprolol, stop scheduled IV metoprolol continue only as needed. rate control is currently good - apixaban is held because of melena and anemia, reassess tomorrow - isosorbide and losartan are still held Patient is a full code. DVT prevention are SCDs at this time Admission and Anticipated Discharge Date Admission Date: September 06, 2024 Subjective She is very happy to have NG tube out and tolerating clears well, no N/V, did have large black liquid stool overnight Abdomen is sore/tender but not using much pain medication Has walked around the unit, did get lightheaded 3/[address] way round and lightheaded when standing up to BR No chest pain or dyspnea Physical Exam 2 Physical Exam: PHYSICAL EXAMINATION Last 24h vital signs reviewed, see documentation in flowsheet General: comfortable appearing, no distress HEENT: Normocephalic, atraumatic, pupils round and equal, sclerae anicteric, no conjunctival injection, moist mucus membranes. NG tube was removed Lungs: Normal respiratory effort. Clear to auscultation bilaterally. No RRW Heart: irregularly irregular, no murmurs. No JVD Abdomen: Soft, mildly tender to palpation your surgical incisions, no rigidity or guarding, nondistended. Bowel sounds present. Extremities: Warm, dry, well-perfused. No extremity edema. Neuro: Alert and oriented x 4, face symmetric, moves 4 extremities well Psych: Normal affect and behavior Results & Data Results & Data Vital Signs (Past 12 Hours) Vital Signs Temp Pulse Pulse Resp BP BP Pulse Ox 09/11/24 11:00 36.8 C 74 20 142/81 H 96 09/11/24 07:00 69 150/82 H 09/11/24 07:00 36.5 C 69 20 150/82 H 93 09/11/24 06:35 89 141/82 H 09/11/24 03:50 80 137/82 09/11/24 03:00 36.6 C 18 94 09/11/24 02:58 81 142/82 H O2 Del Method 09/11/24 11:00 Room Air 09/11/24 07:00 09/11/24 07:00 Room Air 09/11/24 06:35 09/11/24 03:50 09/11/24 03:00 Room Air 09/11/24 02:58 Laboratory Results 09/11/24 07:27 09/11/24 07:27 PG Care Time/CCT Total # of Minutes Spent Total Time Spent with Patient: Total time spent is greater than 50% in coordination of care (as documented) at patient's floor/unit and/or counseling patient: Coding Level of Care Code 98705 SUB INP/OBS CARE 3/50MIN Diagnoses Perforated gastric ulcer K25.5 Hypertension I10 Atrial fibrillation I48.91
[2024-09-11 19:43] LABS: Hematocrit (blood only) 27.7 % (37.0-47.0); Hemoglobin 8.7 g/dl (12.0-16.0); Mean Corpuscular Hemoglobin 29.9 pg (25.0-34.0); Mean Corpuscular Hgb Conc 31.4 g/dL (32.0-36.0); Mean Corpuscular Volume 95.2 fL (80.0-100.0); Mean Platelet Volume 9.3 fL (9.4-12.4); Nucleated RBC % (auto) 2.3 %; Platelet Count 397 K/uL (130-400); RDW Coefficient of Variation 15.8 % (11.5-14.5); RDW Standard Deviation 55.3 fL (36.4-46.3); Red Blood Count 2.91 M/uL (4.20-5.40); White Blood Count 4.37 K/ul (4.8-10.8)
[2024-09-12 06:49] LABS: Hematocrit (blood only) 25.5 % (37.0-47.0); Hemoglobin 8.3 g/dl (12.0-16.0); Mean Corpuscular Hemoglobin 30.6 pg (25.0-34.0); Mean Corpuscular Hgb Conc 32.5 g/dL (32.0-36.0); Mean Corpuscular Volume 94.1 fL (80.0-100.0); Mean Platelet Volume 9.2 fL (9.4-12.4); Nucleated RBC # (auto) 0.04 K/uL (0.00-0.12); Nucleated RBC % (auto) 0.9 %; Platelet Count 386 K/uL (130-400); RDW Coefficient of Variation 16.3 % (11.5-14.5); RDW Standard Deviation 55.8 fL (36.4-46.3); Red Blood Count 2.71 M/uL (4.20-5.40); White Blood Count 4.48 K/ul (4.8-10.8)
[2024-09-12 07:14] LABS: Albumin Globulin Ratio 1.1 (0.9-2); Albumin Level 3.3 gm/dl (3.4-5.0); BUN Creatinine Ratio 8.1 (10-20); Bilirubin,Total 0.8 mg/dl (0.2-1.0); Calcium 8.8 mg/dl (8.6-10.3); Creatinine Clr Calc Pharmacy 86.5 ml/min; Globulin 2.9 gm/dl (2.5-4.0); Potassium 3.5 mmol/L (3.5-5.1); Total Protein 6.2 gm/dl (6.0-8.3)
--- NOTE | 2024-09-12 11:24 | Surgery Progress Note ---
Date of Service September 12, 2024 Assessment & Plan (1) Perforated gastric ulcer: Plan: advance diet and activity slow progress possible discharge in AM if does well today Admission and Anticipated Discharge Date Admission Date: September 06, 2024 Subjective patient with OK day will advance to soft diet ambulating OK pain controlled Review of Systems Constitutional: no fever and no chills Respiratory: no cough and no dyspnea Cardiovascular: no chest pain Gastrointestinal: + abdominal pain (post op); no nausea an d no vomiting Musculoskeletal: no back pain Neurologic: no localized weakness and no generalized weakness Physical Exam Constitutional: WD/WN, vitals as above Eyes: no scleral abnormality ENMT: external ear and nose normal, oropharynx normal Neck: trachea midline Respiratory: no respiratory distress Cardiovascular: Rate/Rhythm: regular rhythm Gastrointestinal (Abdomen): Inspection/Auscultation: abdomen normal to inspection, normal bowel sounds and + abdominal surgical incision; abdomen not distended Percussion/Palpation: + abdomen tender and abdomen soft; no guarding and abdomen not rigid ADALI serous Skin: no rashes, warm and dry Results & Data Vital Signs (Past 12 Hours) Vital Signs Temp Pulse Pulse Resp BP Pulse Ox O2 Del Method 09/12/24 08:00 36.7 C 74 20 129/86 96 Room Air 09/12/24 03:55 36.9 C 68 18 135/83 93 Room Air 09/11/24 23:57 85 09/11/24 23:14 36.7 C 71 18 162/81 H 93 Room Air
--- NOTE | 2024-09-12 15:25 | Hospitalist Progress Note ---
Date of Service September 12, 2024 Assessment & Plan (1) Perforated gastric ulcer: (2) Hypertension: (3) Atrial fibrillation: Plan Hannah is a 59-year-old who had perforation secondary to very large gastric ulcer which required emergency ex lap and Christiano patch on 09/06. she continues to improve, NG tube has been removed she tolerated advancement to full liquid diet, orthostatic lightheadedness resolved after transfusion of 1 unit RBCs with respect to her large perforated gastric ulcer, recent ex lap and Christiano patch this is being managed by the surgical team - NG tube has been removed and she advanced to soft diet today, reviewed recommendations by Dr. William - reviewed OP cultures - polymicrobial, fungal prep negative and culture no growth to date, blood cultures came back negative - continue pip-tazo and caspofungin for perforated viscus - infectious diseases consulting, reviewed recs and note yesterday, recommended completing 7- day course of antibiotics which will end on 09/13 - I discussed with her bedside nurse trying to be proactive with oral oxycodone for pain to see if she can tolerate it at this time and discontinue morphine acute blood loss anemia, melena - this may be old blood from her gastric ulcer, I doubt she is acutely bleeding - transfuse 1 unit RBCs 09/11 for anemia symptomatic of lightheadedness, good augmentation and hemoglobin up to 8.3 and resolution of orthostatic lightheadedness - her anemia is symptomatic with respect to lightheadedness and weakness with ambulation therefore we will transfuse 1 unit of red blood cells today I did personally discussed the risks and benefits of transfusion with her on 09/11 - she had pantoprazole drip earlier in hospitalization, continue IV twice daily atrial fibrillation/flutter coronary artery disease hypertension - continue atorvastatin and oral metoprolol, she is in A-fib/flutter with good rate control - apixaban is held because of melena - isosorbide and losartan are still held Patient is a full code. DVT prevention are SCDs at this time possibly home tomorrow Admission and Anticipated Discharge Date Admission Date: September 06, 2024 Subjective when I saw her this morning she was in some distress because her IV site needed to be replaced and also was needing pain medicine for abdominal pain, not clear to me that the pain is worse than usual her usual postop pain she did have melena stool this morning according to report from her nurse tolerating full liquid diet well, she does not think that the abdominal pain increased or changed after having breakfast. no nausea or vomiting she handled the transfusion well and she reports that today she has no longer lightheaded on standing up or walking, no dyspnea Physical Exam 2 Physical Exam: PHYSICAL EXAMINATION Last 24h vital signs reviewed, see documentation in flowsheet General: mild distress with pain sitting in chair HEENT: Normocephalic, atraumatic, pupils round and equal, sclerae anicteric, no conjunctival injection, moist mucus membranes. Lungs: Normal respiratory effort. Clear to auscultation bilaterally. No RRW Heart: irregularly irregular, no murmurs. No JVD Abdomen: Soft, nondistended, tender to palpation no rigidity or guarding. Bowel sounds present. Extremities: Warm, dry, well-perfused. No extremity edema. Neuro: Alert and oriented x 4, face symmetric, moves 4 extremities well Psych: Normal affect and behavior Results & Data Results & Data Vital Signs (Past 12 Hours) Vital Signs Temp Pulse Pulse Resp BP Pulse Ox O2 Del Method 09/12/24 13:00 80 09/12/24 12:08 36.6 C 88 18 135/76 97 Room Air 09/12/24 08:00 36.7 C 74 20 129/86 96 Room Air 09/12/24 03:55 36.9 C 68 18 135/83 93 Room Air Laboratory Results 09/12/24 06:05 09/12/24 06:05 PG Care Time/CCT Total # of Minutes Spent Total Time Spent with Patient: Total time spent is greater than 50% in coordination of care (as documented) at patient's floor/unit and/or counseling patient: Coding Level of Care Code 93194 SUB INP/OBS CARE 2/35MIN Diagnoses Perforated gastric ulcer K25.5 Hypertension I10 Atrial fibrillation I48.91
[2024-09-13 07:51] VITALS: RESP 18
[2024-09-13 08:06] LABS: Hematocrit (blood only) 29.6 % (37.0-47.0); Hemoglobin 9.2 g/dl (12.0-16.0); Mean Corpuscular Hemoglobin 30.1 pg (25.0-34.0); Mean Corpuscular Hgb Conc 31.1 g/dL (32.0-36.0); Mean Corpuscular Volume 96.7 fL (80.0-100.0); Mean Platelet Volume 9.3 fL (9.4-12.4); Platelet Count 406 K/uL (130-400); RDW Standard Deviation 55.5 fL (36.4-46.3); Red Blood Count 3.06 M/uL (4.20-5.40); White Blood Count 5.13 K/ul (4.8-10.8)
--- NOTE | 2024-09-13 09:14 | Surgery Progress Note ---
Date of Service September 13, 2024 Assessment & Plan (1) History of laparotomy: Plan: POD# 7 dx laparoscopy converted to laparotomy and repair of perforated large gastric ulcer w/ garry patch (09/06/24) VSS Continue PPI gtt. ADALI drain serous fluid , 40/80cc in 12/24hr incision saran CDI may leave open to air tolerating pureed diet /easy to chew Pt will need oral aBX on discharge and continue PPI Follow up this week with Dr William in office if discharged as above. feeling well. jw diet. wants to go home ok with me for d/c. would keep drain and DR. William can remove in 5-7 days. soft/bland diet. stay on PPI. would hold Eliquis one more week Admission and Anticipated Discharge Date Admission Date: September 06, 2024 Subjective denies n/v , f/c tolerating pureed/easy to chew diet +BM Review of Systems Constitutional: no fever and no chills Respiratory: no dyspnea Cardiovascular: no chest pain Gastrointestinal: no abdominal pain, no nausea and no vomiting Physical Exam Constitutional: cooperative; no acute distress Respiratory: normal respiratory effort and able to speak in complete sentences; no respiratory distress Cardiovascular: Rate/Rhythm: regular rate Gastrointestinal (Abdomen): Inspection/Auscultation: + abdominal surgical incision (saran CDI ) and + abdominal surgical drain present (serous fluid ); abdomen not distended Psychiatric: Orientation: alert and oriented x 3 Results & Data Vital Signs (Past 12 Hours) Vital Signs Temp Pulse Resp BP Pulse Ox O2 Del Method 09/13/24 07:51 98.2 F 88 18 158/96 H 93 Room Air 09/13/24 03:10 98.1 F 78 19 163/99 H 92 Room Air 09/12/24 23:30 98.2 F 104 H 20 140/82 92 Room Air Results CBC w Diff Results: RBC 3.06 M/uL (4.20-5.40) L 09/13/24 WBC 5.13 K/ul (4.8-10.8) 09/13/24 Hgb 9.2 g/dl (12.0-16.0) L 09/13/24 Hct 29.6 % (37.0-47.0) L 09/13/24 MCV 96.7 fL (80.0-100.0) 09/13/24 MCH 30.1 pg (25.0-34.0) 09/13/24 MCHC 31.1 g/dL (32.0-36.0) L 09/13/24 RDW Standard Deviation 55.5 fL (36.4-46.3) H 09/13/24 RDW Coefficient of Variation 16.0 % (11.5-14.5) H 09/13/24 Plt Count 406 K/uL (130-400) H 09/13/24 MPV 9.3 fL (9.4-12.4) L 09/13/24 Nucleated Red Blood Cells % (auto) 0.9 % 09/12 Nucleated RBC Absolute Count (auto) 0.04 K/uL (0.00-0.12) 0 09/12/24 Neutrophils (%) (Auto) 78.0 % 09/09/24 Lymphocytes (%) (Auto) 13.9 % 09/09/24 Monocytes # (Auto) 0.44 K/uL (0.11-0.59) 09/09/24 Eosinophils # (Auto) 0.03 K/uL (0.00-0.50) 09/09/24 Immature Granulocyte % (Auto) 0.3 % 09/09/24 Neutrophils # (Auto) 4.82 K/uL (1.40-6.50) 09/09/24 Lymphocytes # (Auto) 0.86 K/uL (1.20-3.40) L 09/09/24 Monocytes # (Auto) 0.44 K/uL (0.11-0.59) 09/09/24 Eosinophils # (Auto) 0.03 K/uL (0.00-0.50) 09/09/24 Basophils # (Auto) 0.01 K/uL (0.00-0.20) 09/09/24 Immature Granulocyte # (Auto) 0.02 K/uL (0.01-0.20) 5 Hypersegmented Neutrophils 1+ 07/27/24 Polychromasia 1+ 09/09/24 Target Cells 1+ 09/09/24 PG Care Time/CCT Total # of Minutes Spent Total Time Spent with Patient: Total time spent is greater than 50% in coordination of care (as documented) at patient's floor/unit and/or counseling patient: Coding Level of Care Code 09771 Post Operative Follow-Up Diagnoses History of laparotomy Z98.890
[2024-09-13 11:55] VITALS: BP 161/84; PULSE 98; TEMP 98.1; O2SAT 96
--- NOTE | 2024-09-13 18:15 | Discharge Summary ---
Discharge Summary Date of Service September 13, 2024 Principal Dx & Hospital Course #1 = Principal Diagnosis (1) Perforated gastric ulcer: (2) Hypertension: (3) Atrial fibrillation: Gem Young is a 59-year-old who had perforation secondary to very large gastric ulcer which required emergency ex lap and Christiano patch on 09/06. # large perforated gastric ulcer, required emergency treatment with ex lap and Christiano patch at time of presentation - IV PPI drip then transitioned to q12h. bid ppi on discharge - at least 6-8 weeks potentially indefinitely - tolerated NG tube removal 48h ago, advancement of diet, pain/nausea minimal controlled by oral meds - discharging with drain, follow up [address] Garcia - discussed plan of care with surgery op cultures were polymicrobial, fungal prep negative and fungal culture no growth to date, blood cultures came back negative - ID consulted, treated with 7 days total mainly pip-tazo and caspofungin, discharged with few doses augmentin and fluconazole # acute blood loss anemia due to acute GI bleeding, had melena postop when bowel function returned - this is likely old blood from her gastric ulcer, I doubt she was acutely rebleeding - turning brown by discharge - transfused 1 unit RBCs 09/11 for anemia symptomatic of lightheadedness, good augmentation and hemoglobin up to 8.3, 9.2 today and resolution of orthostatic lightheadedness - got 300 mg IV iron as well - start ferrous sulfate q48h in a few weeks when stools normalized atrial fibrillation/flutter coronary artery disease hypertension - continue atorvastatin and oral metoprolol, she is in A-fib/flutter with good rate control - apixaban is held because acute GI hemorrhage - per surgeon may resume in 1 week - isosorbide and losartan resumed PT rec home with walker, provided Admission HPI Per Admitting Provider 59-year-old female transferred from [facility] due to perforated viscus taking urgently to the operating room. This patient likely has a post perforated ulcer. Patient describes some history of exertional dyspnea and chest pain especially climbing stairs. She currently is in pe rmanent atrial fibrillation taking Eliquis. She took her Eliquis dose this morning. She received Kcentra at [facility]. Patient was seen in the preoperative suite and she was consented for surgery by Dr. Garcia. I personally discussed case with both Dr. Garcia and the anesthesiologist. Discharge Exam PHYSICAL EXAMINATION Last 24h vital signs reviewed, see documentation in flowsheet General: comfortable, lying in bed HEENT: Normocephalic, atraumatic, pupils round and equal, sclerae anicteric, no conjunctival injection, moist mucus membranes. Lungs: normal WOB CTA ant Heart: irregularly irregular, no murmurs. No JVD Abdomen: Soft, nondistended, nontender. Bowel sounds present. Extremities: Warm, dry, well-perfused. No extremity edema. Neuro: Alert and oriented x 4, face symmetric, moves 4 extremities well Psych: Normal affect and behavior Discharge Plan Discharge Items Patient Disposition: Home - Self-Care Reason For Visit: PERFORATED VISCUS Discharge Diagnosis: perforated gastric ulcer Condition on Discharge: Fair Activity: Per Instructions section Lifting: No more than 10 pounds Bathing Comment: may shower once ADALI drain is removed; no soaking in tubs/pools x 2 weeks Exercise/Sports: Wait until after follow-up appointment Driving/Machine Use: no driving while on narcotics for pain Non-emergency contact: Primary Care Provider and Surgeon Call non-emergency contact if: your pain is not controlled, your pain is worsening, you have a fever, your temperature is above 101.5, your wound has increased redness, your wound has increased drainage and your wound pain has increased Follow-up/Referrals: Jay Garcia DO, FACS [Physician] - 09/21/24 3:00 pm (please call to schedule follow up in the office the week of 09/2009/21/24 at 3:[address] Garcia) Meka Nagel PA-C [Primary Care Provider] - 09/21/24 10:30 am (Hospital follow up scheduled 09/21/24 at 10:30 with Meka Nagel) Diet: Other - See Diet Comment Addtl Attending Provider Instructions: Continue on a pureed diet until your follow up with dr. garcia SPECIAL CARE INSTRUCTIONS: * You have saran in place that will be removed at one of your follow up appointments. You may cover your incisions and changed the dressing daily if you wish for comfort with dry gauze and medipore tape. Please care for your ADALI drain as you have been instructed prior to discharge from the hospital. Empty drain 2- 3x/daily and record output, bring a log with you to the office. Otherwise keep drain to bulb suction. * You may shower . NO soaking in pools or baths for 2 weeks * No lifting greater than 10lbs. No strenuous exercise until cleared by surgeon. Light walking is accepted. * No driving while taking narcotic pain medication; wait at least 3 days * No drinking alcohol while taking narcotic pain medication * May use Ibuprofen/Tylenol over the counter for pain as tolerated. Do not exceed 3grams of Tylenol per 24 hours * Expect some swelling and bruising. * Diet- pureed diet Call your doctor if: * Temperature above 101 degrees, nausea/vomiting, fever/chills * Pain not relieved by pain medicine ordered * There is increased drainage or redness from any incision * You have any unanswered questions or concerns [phone]. FOLLOW UP VISIT: If not already scheduled, please call the office for a follow-up visit. Office Addtl Automobile Rental Clerk Provider Instructions: You were treated for perforated gastric ulcer - this required surgery to stop the bleeding The ulcer was benign (ie no cancer) and testing was negative for an infection called H. pylori that can cause ulcers Finish the antibiotics (amoxicillin-clavulanate and fluconazole which is antifungal) - start today and finish tomorrow You may want to take a probiotic for 2-4 weeks to prevent antibiotic diarrhea Your stool should gradually be getting less dark and more brown, if you have recurrent black/tarry or bloody stool seek immediate medical attention We gave you a dose of IV iron and a unit of blood for anemia It will take 4-6 weeks for your blood counts to go back to normal Take ferrous sulfate every other day - don't start this for about 2 weeks because it can cause constipation and make your stool dark, which would be confusing Hold the Eliquis for one week, you can restart it next Friday if no more bleeding problems You need to take high dose acid suppression - pantoprazole (or equivalent) 40 mg twice a day Follow up in primary care for the anemia It was a pleasure taking care of you in the hospital, Karla Moses MD Pending Studies at Discharge: No Stand-Alone Forms: [employer], Pain - Opioid Pain Management, Smoking Cessation Medications and DC Order Prescriptions: New acetaminophen 325 mg Tablet 650 mg PO QID Qty: 0 0RF Rx Instructions: take tylenol on a [id number] schedule for up to two weeks until pain resolves buy over the counter oxycodone 5 mg Tablet 5 mg PO Q4H PRN (Reason: pain) Qty: 14 0RF pantoprazole 40 mg Tablet,Delayed Release (Dr/Ec) 40 mg PO BID Qty: 60 0RF ferrous sulfate 325 mg (65 mg iron) tablet 325 mg PO Q OTHER DAY Qty: 14 0RF Rx Instructions: start in 2 weeks - may make stool darker amoxicillin-pot clavulanate 875-125 mg tablet 1 tab PO BID Qty: 3 0RF fluconazole 200 mg tablet 400 mg PO DAILY Qty: 4 0RF Continued atorvastatin 20 mg tablet 20 mg PO DAILY isosorbide mononitrate 30 mg tablet extended release 24 hr 30 mg PO DAILY potassium chloride 10 mEq tablet extended release 10 meq PO DAILY meclizine 25 mg tablet 25 mg PO TID PRN (Reason: Dizziness Or Vertigo) losartan 25 mg tablet 25 mg PO DAILY hydrochlorothiazide 25 mg tablet 25 mg PO DAILY metoprolol succinate 25 mg tablet extended release 24 hr 25 mg PO DAILY Held Eliquis 5 mg tablet 5 mg PO BID Hold Instructions: Resume on 09/20/24. hold for one week, per Dr. Garcia Discontinued omeprazole 20 mg capsule,delayed release(DR/EC) 20 mg PO DAILY Discharge Orders: Discharge Order (Routine); Ordered 09/13/24 Ordered By: Karla Moses Admission Data Admit Date/Time: 09/06/24 20:42 Attending Provider: Karla Moses Admit Provider: Roly Ramesh Primary Care Provider: Meka Nagel Other Providers: Jay Garcia; Claudio Wilson Other Interventions: Discharge Summary Assessment (RN) Last Done: 09/13/24 14:06 Hospital Stay Data Consultations 09/06/24 18:18 Consult General Surgery Routine 09/06/24 21:27 Consult Developer Analyst Routine 09/07/24 07:39 Consult Infectious Diseases Routine Procedures Performed Operation Date: 09/06/24 12:40 Actual Procedures s diagnostic laparoscopy, (Not Applicable) - Jay Garcia DO, FACS p open laparotomy, modified Christiano patch repair of large gastric ulcer, abdominal washout(Not Applicable) - Jay Garcia DO, FACS Pending Results Patient Have Any Pending Studies at Discharge: No Discharge Instructions Given to Patient (Per Discharging Provider) Continue on a pureed diet until your follow up with dr. garcia SPECIAL CARE INSTRUCTIONS: * You have saran in place that will be removed at one of your follow up appointments. You may cover your incisions and changed the dressing daily if you wish for comfort with dry gauze and medipore tape. Please care for your ADALI drain as you have been instructed prior to discharge from the hospital. Empty drain 2- 3x/daily and record output, bring a log with you to the office. Otherwise keep drain to bulb suction. * You may shower . NO soaking in pools or baths for 2 weeks * No lifting greater than 10lbs. No strenuous exercise until cleared by surgeon. Light walking is accepted. * No driving while taking narcotic pain medication; wait at least 3 days * No drinking alcohol while taking narcotic pain medication * May use Ibuprofen/Tylenol over the counter for pain as tolerated. Do not exceed 3grams of Tylenol per 24 hours * Expect some swelling and bruising. * Diet- pureed diet Call your doctor if: * Temperature above 101 degrees, nausea/vomiting, fever/chills * Pain not relieved by pain medicine ordered * There is increased drainage or redness from any incision * You have any unanswered questions or concerns [phone]. FOLLOW UP VISIT: If not already scheduled, please call the office for a follow-up visit. Office Total Time Total Time Spent Total Time Spent (In Minutes): I personally spent: 40 minutes today on clinical care activities including: reviewing chart notes and vital signs reviewing labs discussion with architectural sales consultant(s) discussion with customer care assistant examining and counseling the patient writing orders writing prescriptions, discharge instructions documentation Coding Level of Care Code 15214 INP/OBS DISCH >30 MIN Diagnoses Perforated gastric ulcer K25.5 Hypertension I10 Atrial fibrillation I48.91
== END 2024-09-13 14:15 | disposition home health service (06) | DRG 326 ==
LOC: PACUINP 17:38 → SUATTDRO 20:42 → 1E 20:45 → 2S 09-07 14:42